=== PATIENT | female | born 1985 | race Caucasian/White ===

== ENCOUNTER 2017-02-10 00:14 | Emergency (ER) | payer MEDICAID ==
--- NOTE | 2017-02-10 00:53 | ED Physician Documentation ---
History of Present Illness - Stated complaint Stated Complaint: HEADACHE,VOMITING,SORE THROAT - Chief complaint Chief Complaint: Abd Pain - History obtained from History obtained from: Patient - History of Present Illness Timing: Today Improved by: no ameliorating factors Worsened by: GRIDER is exacerbated by light, sound - Additonal information Additional information: c/o frontal GRIDER, nausea, vomiting. Patient has had three (+) tests (OTC , at home) last few days. LMP approximately 5 weeks ago. Review of Systems Constitutional: reports: Sweats. denies: Fever Throat: reports: Sore throat Cardiac: reports: Reviewed and negative Respiratory: reports: Reviewed and negative GI: reports: Nausea, Vomiting. denies: Abdominal Pain : reports: Now EGA. 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 : None HEENT: Other Psych: Depression, Anxiety Musculoskeletal: None Derm: None - Past Surgical History Past Surgical History: Yes General: Colonoscopy, EGD - Present Medications Home Medications: Ambulatory Orders Medication Instructions Recorded Confirmed Sertraline [Zoloft] 50 mg PO DAILY 02/06/13 03/19/15 Cephalexin [Keflex] 500 mg PO TID #20 capsule 03/19/15 Oxycodone HCl/Acetaminophen 1 each PO Q6H PRN #15 tablet 03/19/15 [Percocet 5-325 mg Tablet] Cyclobenzaprine [Flexeril] 10 mg PO TID PRN #20 tablet 02/28/16 oxyCODONE/ACET 5/325 [Percocet 5 1 - 2 each PO Q6H PRN #14 tablet 02/28/16 mg/325 mg] Ondansetron Odt [Zofran] 4 mg TL Q6H PRN #10 tablet 02/10/17 - Allergies Allergies/Adverse Reactions: Allergies Allergy/AdvReac Type Severity Reaction Status Date / Time Penicillins Allergy Intermediate Hives Verified 02/10/17 00:24 - Social History Does the pt smoke?: Yes Smoking Status: Current every day smoker Does the pt drink ETOH?: Yes Does the pt have substance abuse?: No - Immunizations Immunizations are current?: Yes - POLST Patient has POLST: No PD ED PE NORMAL - Vitals Vital signs reviewed: Yes - General General: Alert and oriented X 3, Well developed/nourished, Other (diaphoretic, vomiting) - HEENT HEENT: Moist mucous membranes - Neck Neck: Supple, no meningeal sign - Cardiac Cardiac: RRR, No murmur - Respiratory Respiratory: No respiratory distress, Clear bilaterally - Abdomen Abdomen: Soft, Non tender - Back Back: No CVA TTP Results - Vitals Vitals: Vital Signs - 24 hr 02/10/17 02/10/17 00:21 02:14 Temperature 35.4 C L Heart Rate 85 72 Respiratory 20 16 Rate Blood Pressure 121/83 H 126/77 O2 Saturation 96 100 Oxygen O2 Source Room air - Labs Labs: Laboratory Tests 02/10/17 02/10/17 02/10/17 01:00 01:04 01:04 WBC 6.8 RBC 4.59 Hgb 11.6 L Hct 35.2 L MCV 76.8 L MCH 25.2 L MCHC 32.8 RDW 18.9 H Plt Count 175 MPV 9.0 Neut # 4.7 Lymph # 1.2 L [place] # 0.7 Eos # 0.1 Baso # 0.1 Absolute Nucleated RBC 0.00 Nucleated RBCs 0.0 Sodium 136 Potassium 3.5 Chloride 106 Carbon Dioxide 19 L Anion Gap 11.0 BUN 11 Creatinine 0.4 Estimated GFR (MDRD) 184 Glucose 124 H Calcium 8.9 Total Bilirubin < 0.2 L AST 27 ALT 23 Alkaline Phosphatase 51 Total Protein 7.1 Albumin 3.8 Globulin 3.3 Albumin/Globulin Ratio 1.2 Lipase 23 HCG, Quant Group A Strep Rapid Negative 02/10/17 01:04 WBC RBC Hgb Hct MCV MCH MCHC RDW Plt Count MPV Neut # Lymph # [place] # Eos # Baso # Absolute Nucleated RBC Nucleated RBCs Sodium Potassium Chloride Carbon Dioxide Anion Gap BUN Creatinine Estimated GFR (MDRD) Glucose Calcium Total Bilirubin AST ALT Alkaline Phosphatase Total Protein Albumin Globulin Albumin/Globulin Ratio Lipase HCG, Quant 06599.00 Group A Strep Rapid PD MEDICAL DECISION MAKING - ED course Complexity details: reviewed results, re-evaluated patient, considered differential, d/w patient ED course: On reevaluation, after IV fluids, IV zofran, and IV ofirmev, patient appears comfortable, NAD. She reports significant improvement in symptoms and feels comfortable with d/c home. I advised her of her HCG level and recommended she start arranging follow up with customer sales service manager. She has no pelvic/abd. symptoms (except nausea, vomiting; otherwise, no pain or cramping, no vaginal bleeding), and thus US not performed at this time. Departure - Departure Disposition: 01 Home, Self Care Clinical Impression: Vomiting during Condition: Good Instructions: ED Nausea Vomiting Follow-Up: Yesenia Pradhan DO [Provider Admit Priv/Credential] - Prescriptions: Ondansetron Odt [Zofran] 4 mg TL Q6H PRN #10 tablet PRN Reason: Nausea / Vomiting Forms: Activity restrictions Discharge Date/Time: 02/10/17 02:19
[2017-02-10] MEDS ORDERED: ONDANSETRON 4 MG/2 ML VIAL IVP STA (01:06)
[2017-02-10] MEDS ORDERED: SODIUM CHLORIDE 0.9% 1,000 ML IV STA (01:06)
[2017-02-10] MEDS ORDERED: ACETAMINOPHEN 1,000 MG/100 ML 100 ML IV STA (01:06)
[2017-02-10] MEDS ORDERED: ONDANSETRON 4 MG/2 ML VIAL ONE (01:08)
[2017-02-10] MEDS ORDERED: SODIUM CHLORIDE 0.9% 1,000 ML IV ONE (01:08)
[2017-02-10] MEDS ORDERED: ACETAMINOPHEN 1,000 MG/100 ML 100 ML IV ONE (01:08)
[2017-02-10] MEDS ORDERED: SODIUM CHLORIDE FLUSH 0.9% 10 ML SYRINGE IVP ONE (01:08)
[2017-02-10 01:14] LABS: BASOPHILS # (AUTO) 0.1 10^3/uL (0.0-0.1); BASOPHILS % (AUTO) 1.1 %; EOSINOPHILS # (AUTO) 0.1 10^3/uL (0.0-0.7); EOSINOPHILS % (AUTO) 1.4 %; HCT - HEMATOCRIT 35.2 % (37.0-47.0); HGB - HEMOGLOBIN 11.6 g/dL (12.0-16.0); LYMPHOCYTES # (AUTO) 1.2 10^3/uL (1.5-3.5); LYMPHOCYTES % (AUTO) 18.2 %; MEAN CORPUSCULAR HEMOGLOBIN 25.2 pg (27.0-31.0); MEAN CORPUSCULAR HGB CONC 32.8 g/dL (32.0-36.0); MEAN CORPUSCULAR VOLUME 76.8 fL (81.0-99.0); MONOCYTES # (AUTO) 0.7 10^3/uL (0.0-1.0); MONOCYTES % (AUTO) 10.4 %; NEUTROPHILS # (AUTO) 4.7 10^3/uL (1.5-6.6); NEUTROPHILS % (AUTO) 68.9 %; RED BLOOD COUNT 4.59 10^6/uL (4.20-5.40); RED CELL DISTRIBUTION WIDTH 18.9 % (12.0-15.0); UNCORRECTED WHITE BLOOD COUNT 6.8 x10^3/uL; WHITE BLOOD COUNT 6.8 x10^3/uL (4.8-10.8)
[2017-02-10 01:18] LABS: RAPID STREP SCREEN REAGENT QC YELLOW (YELLOW)
[2017-02-10 01:22] LABS: ALBUMIN/GLOBULIN RATIO 1.2 (1.0-2.2); BILIRUBIN,TOTAL < 0.2 mg/dL (0.2-1.0); BUN - BLOOD UREA NITROGEN 11 mg/dL (6-20); CALCIUM 8.9 mg/dL (8.5-10.3); CARBON DIOXIDE - CO2 19 mmol/L (21-32); CHLORIDE 106 mmol/L (101-111); CREATININE 0.4 mg/dL (0.4-1.0); GFR - MDRD 184 (>89); GLUCOSE 124 mg/dL (70-100); LIPASE 23 U/L (22-51); POTASSIUM 3.5 mmol/L (3.5-5.0); SODIUM 136 mmol/L (135-145); TOTAL PROTEIN 7.1 g/dL (6.7-8.2)
[2017-02-10] MEDS ORDERED: ONDANSETRON ODT 4 MG Prepack 2 TL STA (02:04)
[2017-02-10] MEDS ORDERED: ONDANSETRON ODT 4 MG Prepack 2 TL ONE (02:06)
[2017-02-10 02:15] VITALS: BP 126/77
== END 2017-02-10 02:19 | disposition home or self-care (01) ==
LOC: ED 00:14
DX: O21.9 Vomiting of pregnancy, unspecified (principal); O99.330 Smoking (tobacco) complicating pregnancy, unspecified trimester; Z3A.00 Weeks of gestation of pregnancy not specified
CPT/HCPCS: 36415; 80053; 83690; 84702; 85025; 87070; 87430; 96361; 96374; 96375; 99283; 99284; J0131

== ENCOUNTER 2017-03-02 08:00 | Outpatient (CLI) | payer MEDICAID, OTHER | END 2017-03-02 08:01 | disposition home or self-care (01) | LOC: LAB.R 08:00 | PROVIDERS: ATTEND Obstetrics & Gynecology | DX: Z11.3 Encounter for screening for infections with a predominantly sexual mode of transmission (principal) | CPT/HCPCS: 87491; 87591 ==

== ENCOUNTER 2017-03-05 05:44 | Emergency (ER) | payer OTHER ==
--- NOTE | 2017-03-05 06:11 | ED Physician Documentation ---
PD HPI NVD - Stated complaint Stated Complaint: VOMITING,DIARRHEA - Chief complaint Chief Complaint: Abd Pain - History obtained from History obtained from: Patient - History of Present Illness Timing - onset: Yesterday Timing - details: Abrupt onset, Waxing and waning Pain level now: 6 (headache) Improved by: Other (no ameliorating factors) Worsened by: Other (PO intake) Recently seen: Emergency Dept (T&R three weeks ago from this ED. this is her 24th [facility] ED visit since 2011) Review of Systems Constitutional: reports: Reviewed and negative Cardiac: reports: Reviewed and negative Respiratory: reports: Reviewed and negative GI: reports: Nausea, Vomiting, Diarrhea. denies: Abdominal Pain : reports: Now EGA (10 weeks, has had US in this (she describes IUP with perichorionic hemorrhage)). 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 : None HEENT: Other Psych: Depression, Anxiety Musculoskeletal: None Derm: None - Past Surgical History Past Surgical History: Yes General: Colonoscopy, EGD - Present Medications Home Medications: Ambulatory Orders Medication Instructions Recorded Confirmed Citalopram [CeleXA] 10 mg PO ONCE 03/05/17 03/05/17 Ondansetron Odt [Zofran] 4 mg TL Q6H PRN #10 tablet 03/05/17 Xpj375/FA/Omega3/Dha/Fish Oil 1 tab ORAL DAILY 03/05/17 03/05/17 [ Gummies] - Allergies Allergies/Adverse Reactions: Allergies Allergy/AdvReac Type Severity Reaction Status Date / Time Penicillins Allergy Intermediate Hives Verified 03/05/17 05:51 - Social History Does the pt smoke?: Yes Smoking Status: Former smoker Does the pt drink ETOH?: No Does the pt have substance abuse?: No - Immunizations Immunizations are current?: Yes - POLST Patient has POLST: No PD ED PE NORMAL - Vitals Vital signs reviewed: Yes - General General: Alert and oriented X 3, Well developed/nourished, Other (pale, diaphoretic, vomiting at times during H+P) - Cardiac Cardiac: RRR, No murmur - Respiratory Respiratory: No respiratory distress, Clear bilaterally Results - Vitals Vitals: Vital Signs - 24 hr 03/05/17 03/05/17 03/05/17 05:47 08:32 09:10 Temperature 35.7 C L 37.0 C 37.0 C Heart Rate 98 71 72 Respiratory 18 18 18 Rate Blood Pressure 139/80 H 122/66 132/74 H O2 Saturation 99 100 100 Oxygen O2 Source Room air - Labs Labs: Laboratory Tests 03/05/17 03/05/17 03/05/17 05:55 05:55 05:55 WBC 8.9 RBC 4.65 Hgb 11.8 L Hct 37.0 MCV 79.5 L MCH 25.4 L MCHC 31.9 L RDW 19.8 H Plt Count 187 MPV 8.7 Neut # 5.4 Lymph # 2.7 [place] # 0.5 Eos # 0.2 Baso # 0.1 Absolute Nucleated RBC 0.01 Nucleated RBCs 0.1 Sodium 135 Potassium 3.7 Chloride 105 Carbon Dioxide 21 Anion Gap 9.0 BUN 14 Creatinine 0.4 Estimated GFR (MDRD) 184 Glucose 114 H Calcium 8.7 Total Bilirubin 0.3 AST 19 ALT 18 Alkaline Phosphatase 49 Total Protein 6.9 Albumin 3.3 Globulin 3.6 Albumin/Globulin Ratio 0.9 L Lipase 26 HCG, Quant 962039.00 Urine Color Urine Clarity Urine pH Ur Specific [place] Urine Protein Urine Glucose (UA) Urine Ketones Urine Occult Blood Urine Nitrite Urine Bilirubin Urine Urobilinogen Ur Leukocyte Esterase Ur Microscopic Review Urine Culture Comments 03/05/17 08:00 WBC RBC Hgb Hct MCV MCH MCHC RDW Plt Count MPV Neut # Lymph # [place] # Eos # Baso # Absolute Nucleated RBC Nucleated RBCs Sodium Potassium Chloride Carbon Dioxide Anion Gap BUN Creatinine Estimated GFR (MDRD) Glucose Calcium Total Bilirubin AST ALT Alkaline Phosphatase Total Protein Albumin Globulin Albumin/Globulin Ratio Lipase HCG, Quant Urine Color YELLOW Urine Clarity CLEAR Urine pH 6.5 Ur Specific [place] 1.010 Urine Protein NEGATIVE Urine Glucose (UA) NEGATIVE Urine Ketones NEGATIVE Urine Occult Blood NEGATIVE Urine Nitrite NEGATIVE Urine Bilirubin NEGATIVE Urine Urobilinogen 0.2 (NORMAL) Ur Leukocyte Esterase NEGATIVE Ur Microscopic Review NOT INDICATED Urine Culture Comments NOT INDICATED PD MEDICAL DECISION MAKING - ED course Complexity details: reviewed results, re-evaluated patient, considered differential, d/w patient ED course: appeared, and reported, significant improvement after IV fluids, zofran, and morphine for headache. Departure - Departure Disposition: 01 Home, Self Care Clinical Impression: Vomiting Qualifiers: Vomiting type: unspecified Vomiting Intractability: non-intractable Nausea presence: with nausea Qualified Code(s): R11.2 - Nausea with vomiting, unspecified Qualifiers: Weeks of gestation: 10 weeks Qualified Code(s): Z3A.10 - 10 weeks gestation of Headache Qualifiers: Headache type: unspecified Headache chronicity pattern: acute headache Intractability: not intractable Qualified Code(s): R51 - Headache Condition: Good Instructions: ED Vomiting Diarrhea Nonspecific Ad Prescriptions: Ondansetron Odt [Zofran] 4 mg TL Q6H PRN #10 tablet PRN Reason: Nausea / Vomiting Discharge Date/Time: 03/05/17 09:10
[2017-03-05] MEDS ORDERED: METOCLOPRAMIDE 10 MG/2 ML VIAL ONE (06:19)
[2017-03-05] MEDS ORDERED: ACETAMINOPHEN 1,000 MG/100 ML 100 ML IV STA (06:21)
[2017-03-05] MEDS ORDERED: ONDANSETRON 4 MG/2 ML VIAL IVP STA ×2 (06:21→08:08)
[2017-03-05] MEDS ORDERED: ONDANSETRON 4 MG/2 ML VIAL ONE ×2 (06:21→08:10)
[2017-03-05] MEDS ORDERED: ACETAMINOPHEN 1,000 MG/100 ML 100 ML IV ONE (06:22)
[2017-03-05] MEDS ORDERED: SODIUM CHLORIDE 0.9% 1,000 ML IV STA ×2 (06:22→08:08)
[2017-03-05 06:31] LABS: BASOPHILS # (AUTO) 0.1 10^3/uL (0.0-0.1); BASOPHILS % (AUTO) 0.6 %; EOSINOPHILS # (AUTO) 0.2 10^3/uL (0.0-0.7); EOSINOPHILS % (AUTO) 2.5 %; HGB - HEMOGLOBIN 11.8 g/dL (12.0-16.0); LYMPHOCYTES # (AUTO) 2.7 10^3/uL (1.5-3.5); LYMPHOCYTES % (AUTO) 30.4 %; MEAN CORPUSCULAR HEMOGLOBIN 25.4 pg (27.0-31.0); MEAN CORPUSCULAR HGB CONC 31.9 g/dL (32.0-36.0); MEAN CORPUSCULAR VOLUME 79.5 fL (81.0-99.0); MEAN PLATELET VOLUME 8.7 fL (7.9-10.8); MONOCYTES # (AUTO) 0.5 10^3/uL (0.0-1.0); MONOCYTES % (AUTO) 5.2 %; NEUTROPHILS # (AUTO) 5.4 10^3/uL (1.5-6.6); NEUTROPHILS % (AUTO) 61.3 %; NUCLEATED RED BLOOD CELLS AUTO 0.1 /100WBC; RED BLOOD COUNT 4.65 10^6/uL (4.20-5.40); RED CELL DISTRIBUTION WIDTH 19.8 % (12.0-15.0); UNCORRECTED WHITE BLOOD COUNT 8.9 x10^3/uL; WHITE BLOOD COUNT 8.9 x10^3/uL (4.8-10.8)
[2017-03-05 06:41] LABS: ALBUMIN/GLOBULIN RATIO 0.9 (1.0-2.2); BILIRUBIN,TOTAL 0.3 mg/dL (0.2-1.0); CALCIUM 8.7 mg/dL (8.5-10.3); CREATININE 0.4 mg/dL (0.4-1.0); POTASSIUM 3.7 mmol/L (3.5-5.0); TOTAL PROTEIN 6.9 g/dL (6.7-8.2)
[2017-03-05 08:05] LABS: BILIRUBIN,URINE NEGATIVE (NEGATIVE); PH,URINE 6.5 PH (5.0-7.5)
[2017-03-05] MEDS ORDERED: MORPHINE 2 MG/ML SYRINGE IVP STA ×2 (08:08→08:45)
[2017-03-05] MEDS ORDERED: MORPHINE 2 MG/ML SYRINGE ONE ×2 (08:10→08:53)
[2017-03-05 08:27] LABS: UA CHARGE (STRIP ONLY) YES; UR CULTURE IF IND NOT INDICATED
[2017-03-05 09:30] VITALS: BP 132/74
== END 2017-03-05 09:10 | disposition home or self-care (01) ==
LOC: ED 05:44
DX: R11.2 Nausea with vomiting, unspecified (principal); Z87.891 Personal history of nicotine dependence
CPT/HCPCS: 36415; 80053; 81003; 83690; 84702; 85025; 96361; 96374; 96375; 96376; 99283; J0131; 81001; 87086

== ENCOUNTER 2017-04-02 08:00 | Outpatient (CLI) | payer OTHER ==
[2017-04-02 18:59] LABS: BILIRUBIN,URINE NEGATIVE (NEGATIVE)
[2017-04-02 19:30] LABS: BASOPHILS % (AUTO) 0.3 %; EOSINOPHILS # (AUTO) 0.2 10^3/uL (0.0-0.7); EOSINOPHILS % (AUTO) 1.8 %; HCT - HEMATOCRIT 34.7 % (37.0-47.0); HGB - HEMOGLOBIN 11.4 g/dL (12.0-16.0); LYMPHOCYTES # (AUTO) 2.4 10^3/uL (1.5-3.5); LYMPHOCYTES % (AUTO) 21.7 %; MEAN CORPUSCULAR HEMOGLOBIN 26.3 pg (27.0-31.0); MEAN CORPUSCULAR HGB CONC 32.9 g/dL (32.0-36.0); MEAN CORPUSCULAR VOLUME 79.9 fL (81.0-99.0); MEAN PLATELET VOLUME 9.1 fL (7.9-10.8); MONOCYTES # (AUTO) 0.5 10^3/uL (0.0-1.0); MONOCYTES % (AUTO) 4.9 %; NEUTROPHILS # (AUTO) 7.8 10^3/uL (1.5-6.6); NEUTROPHILS % (AUTO) 71.3 %; RED BLOOD COUNT 4.35 10^6/uL (4.20-5.40)
[2017-04-06 17:36] LABS: TEST RESULT REPORT (())
== END 2017-04-02 08:01 | disposition home or self-care (01) ==
LOC: LAB.N 08:00
PROVIDERS: ATTEND Obstetrics & Gynecology
DX: Z36 Encounter for antenatal screening of mother (principal)
CPT/HCPCS: 36415; 81001; 81599; 85025; 86762; 86850; 86900; 86901; 87340; 87389

== ENCOUNTER 2017-05-14 07:29 | Outpatient (CLI) | payer OTHER ==
--- NOTE | 2017-05-18 15:10 | Ultrasound Report ---
OB ULTRASOUND: 05/14/2017 CLINICAL INDICATION: anatomy. TECHNIQUE: Real-time scanning was performed with mechanical service representative static images obtained. LAST MENSTRUAL PERIOD 12/26/2016 Clinical Age 19 weeks 6 days US Age 20 weeks 1 day EFW Hadlock 334 grams EFW% Hadlock --- Heart Rate 138 EDC 10/02/2017 US EDC 09/30/2017 BPD Hadlock 20 weeks 1 day; Mean mm 46.8 HC Hadlock 19 weeks 6 days; Mean mm 173 AC Hadlock 20 weeks 4 days; Mean mm 153.4 FL Hadlock 19 weeks 5 days; Mean mm 31.3 Presentation breech/augustus Placental Location anterior maternal rt Cervical Length 4.5 cm Amniotic Fluid 4.7 cm FINDINGS: There is a single viable intrauterine gestation, in breech presentation. heart rate is 130 BPM. The placenta is anterior, without evidence of previa. Amniotic fluid volume is subjectively normal. By size, the fetus measures 20 weeks 1 day (19 weeks 6 days by LMP). The following anatomic structures were visualized and appear normal: The intracranial contents, including the ventricles and posterior fossa; the lips and orbits; the spine; the diaphragm; the abdominal contents, including the stomach, the bilateral kidneys, and urinary bladder, as well as a normal 3 vessel cord insertion; 4 limbs. Visualization of the cardiac structures, including four-chamber view and outflow tracts, is limited by positioning. Trace fluid is noted in the endocervical canal. No adnexal mass or free fluid is present. IMPRESSION: SINGLE VIABLE INTRAUTERINE GESTATION, WITH SIZE IN KEEPING WITH LMP DATING. SUBOPTIMAL VISUALIZATION OF CARDIAC STRUCTURES, DUE TO POSITIONING. OTHERWISE, UNREMARKABLE ANATOMIC SURVEY. [facility]
== END 2017-05-14 07:30 | disposition home or self-care (01) ==
LOC: DI 07:29
PROVIDERS: ATTEND Obstetrics & Gynecology
DX: Z36 Encounter for antenatal screening of mother (principal)
CPT/HCPCS: 76811

== ENCOUNTER 2017-06-11 08:59 | Outpatient (CLI) | payer OTHER ==
--- NOTE | 2017-06-14 15:18 | Ultrasound Report ---
LIMITED FOLLOWUP OB ULTRASOUND: 06/11/2017 COMPARISON: Anatomic screen 05/14/2017. INDICATION: Screening followup. TECHNIQUE: Limited evaluation. Followup exam. Cardiac structures not well visualized on routine anatomic survey of 05/14. LAST MENSTRUAL PERIOD 12/26/2016 Clinical Age 23 weeks 6 days US Age 24 weeks 2 days EFW Hadlock 669 EFW% Hadlock 51% Heart Rate 148 bpm EDC 10/02/2017 US EDC 09/29/2017 BPD Hadlock 23 weeks 5 days; Mean mm 57.8 HC Hadlock 24 weeks 1 day; Mean mm 222 AC Hadlock 24 weeks 2 days; Mean mm 196 FL Hadlock 24 weeks 1 day; Mean mm 43 Presentation variable Placental Location anterior Cervical Length 4.2 cm Amniotic Fluid 14.8 cm FINDINGS: The heart is better visualized on this examination. The left ventricular outflow tract and right ventricular outflow tract appear to have a normal anatomic configuration. Four-chamber heart is limited. However, no interatrial septum is visualized. IMPRESSION: THE INTERATRIAL CARDIAC SEPTUM APPEARS ABSENT ON THIS EXAMINATION. RECOMMEND A LOW THRESHOLD FOR MATERNAL MEDICINE CONSULTATION. OTHERWISE, THERE IS APPROPRIATE INTERVAL GROWTH. MTDD
== END 2017-06-11 09:00 | disposition home or self-care (01) ==
LOC: DI 08:59
PROVIDERS: ATTEND Obstetrics & Gynecology
DX: Z36.2 Encounter for other antenatal screening follow-up (principal)
CPT/HCPCS: 76816

== ENCOUNTER 2017-07-03 13:04 | Outpatient (CLI) | payer OTHER ==
--- NOTE | 2017-07-04 08:05 | Ultrasound Report ---
EXAM: RENAL ULTRASOUND EXAM DATE: 07/03/2017 01:09 PM. CLINICAL HISTORY: Right back pain. Question hydroureter. 27 weeks . COMPARISON: Noncontrast CT abdomen and pelvis 04/18/2013. TECHNIQUE: Real-time scanning was performed with static images obtained. FINDINGS: Right Kidney: 12.4 x 5.6 x 6.2 cm. No hydronephrosis or shadowing stones. Grossly normal parenchymal echogenicity and cortical thickness. No focal lesion identified. No perinephric fluid. Ureter is not well-seen. Left Kidney: 11.4 x 5.1 x 6 cm. No hydronephrosis or shadowing stones. Grossly normal parenchymal ech ogenicity and cortical thickness. No focal lesion or perinephric fluid. Ureter is not well-seen. Bladder: Bilateral jets seen. Smooth contour. The prevoid bladder volume was 257 cc. No postvoid blad parker residual. IMPRESSION: 1. Unremarkable renal sonogram. No hydronephrosis or focal lesion identified. 2. Neither ureter is well seen by sonogram (which is typical). Presence of bilateral ureteral jets ar gues against significant ureteral obstruction. 3. Unremarkable bladder with no postvoid residual. [facility] Referring Provider Line: [phone] SITE ID: [id number]
== END 2017-07-03 13:05 | disposition home or self-care (01) ==
LOC: DI 13:04
PROVIDERS: ATTEND Obstetrics & Gynecology
DX: M54.9 Dorsalgia, unspecified (principal)
CPT/HCPCS: 76770

== ENCOUNTER 2017-07-16 17:02 | Outpatient (CLI) | payer OTHER | END 2017-07-16 17:03 | disposition home or self-care (01) | LOC: LAB.N 17:02 | PROVIDERS: ATTEND Obstetrics & Gynecology | DX: Z36.9 Encounter for antenatal screening, unspecified (principal) | CPT/HCPCS: 36415; 82950; 85018; 86850 ==

== ENCOUNTER 2017-07-23 08:01 | Outpatient (CLI) | payer OTHER ==
[2017-07-23 08:54] LABS: GTT GLUCOSE,FASTING 102 mg/dL (70-100)
== END 2017-07-23 08:02 | disposition home or self-care (01) ==
LOC: LAB 08:01
PROVIDERS: ATTEND Obstetrics & Gynecology
DX: O99.810 Abnormal glucose complicating pregnancy (principal)
CPT/HCPCS: 36415; 82951

== ENCOUNTER 2017-08-06 03:59 | Emergency (ER) | payer OTHER ==
--- NOTE | 2017-08-06 04:32 | ED Physician Documentation ---
PD HPI HEENT - Stated complaint Stated Complaint: DENTAL PAIN/VOMITING - Chief complaint Chief Complaint: Heent - History obtained from History obtained from: Patient - History of Present Illness Timing - onset: How many days ago (2) Timing - duration: Days Timing - details: Gradual onset Pain level now: 8 Location: Tooth Improves: Nothing Worsens: Swalllowing, Temperatures Associated symptoms: Headache. No: Fever Recently seen: Not recently seen - Additional information Additional information: 32 weeks , c/o 2 days if left jaw pain that subsequently became focused on left mandibular second molar. tylenol without relief. also has nausea, vomiting and has difficulty keeping even sips of water down. had some keflex left over from old rx and thus took one keflex this evening. Review of Systems Constitutional: denies: Fever Throat: reports: Dental pain / toothache. denies: Sore throat Cardiac: reports: Reviewed and negative Respiratory: reports: Reviewed and negative GI: reports: Nausea, Vomiting. denies: Abdominal Pain : reports: Now EGA (32). 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 : None HEENT: Other Psych: Depression, Anxiety Musculoskeletal: None Derm: None - Past Surgical History Past Surgical History: Yes General: Colonoscopy, EGD - Present Medications Home Medications: Ambulatory Orders Medication Instructions Recorded Confirmed Citalopram [CeleXA] 10 mg PO ONCE 03/05/17 03/05/17 Ondansetron Odt [Zofran] 4 mg TL Q6H PRN #10 tablet 03/05/17 [id number]/FA/Omega3/Dha/Fish Oil 1 tab ORAL DAILY 03/05/17 03/05/17 [ Gummies] Cephalexin [Keflex] 500 mg PO Q6HR #19 capsule 08/06/17 Ondansetron Odt [Zofran] 4 mg TL Q6H PRN #10 tablet 08/06/17 - Allergies Allergies/Adverse Reactions: Allergies Allergy/AdvReac Type Severity Reaction Status Date / Time Penicillins Allergy Intermediate Hives Verified 03/05/17 05:51 - Social History Does the pt smoke?: Yes Smoking Status: Current every day smoker Does the pt drink ETOH?: No Does the pt have substance abuse?: No - Immunizations Immunizations are current?: Yes - POLST Patient has POLST: No PD ED PE NORMAL - Vitals Vital signs reviewed: Yes - General General: Alert and oriented X 3, No acute distress, Well developed/nourished - HEENT HEENT: PERRL, EOMI, Other (pasty mucous membranes) - Neck Neck: Supple, no meningeal sign - Cardiac Cardiac: RRR, No murmur - Respiratory Respiratory: No respiratory distress, Clear bilaterally - Abdomen Abdomen: Soft, Non tender PD ED PE EXPANDED - HEENT HEENT: Dental decay (generalized moderate amount of dental attrition) HEENT Visual: 1 - tenderness (ttp 18 with minimal gingival swelling and erythema) Results - Vitals Vitals: Vital Signs - 24 hr 08/06/17 08/06/17 08/06/17 04:04 05:45 06:30 Temperature 36.7 C Heart Rate 108 H 84 78 Respiratory 18 16 15 Rate Blood Pressure 153/89 H 140/82 H 147/89 H O2 Saturation 100 100 100 Oxygen O2 Source Room air - Labs Labs: Laboratory Tests 08/06/17 08/06/17 05:05 05:05 WBC 9.4 RBC 4.17 L Hgb 10.5 L Hct 32.8 L MCV 78.7 L MCH 25.3 L MCHC 32.1 RDW 18.7 H Plt Count 165 MPV 9.1 Neut # 7.5 H Lymph # 1.4 L [place] # 0.4 Eos # 0.1 Baso # 0.1 Absolute Nucleated RBC 0.00 Nucleated RBC % 0.0 Sodium 133 L Potassium 3.5 Chloride 104 Carbon Dioxide 21 Anion Gap 8.0 BUN 10 Creatinine 0.6 Estimated GFR (MDRD) 115 Glucose 96 Calcium 9.3 PD MEDICAL DECISION MAKING - ED course Complexity details: reviewed old records, reviewed results, re-evaluated patient , considered differential, d/w patient ED course: after IV fluids, IV morphine x 2 doses (2mg each dose), and zofran IV, patient reported significant improvement, was ready to go home. given keflex and new rx for same, and prepack of vicodin without rx for same.instructed to follow up with dentistry. Departure - Departure Disposition: 01 Home, Self Care Clinical Impression: Pain, dental Vomiting Qualifiers: Vomiting type: unspecified Vomiting Intractability: non-intractable Nausea presence: with nausea Qualified Code(s): R11.2 - Nausea with vomiting, unspecified Condition: Good Instructions: ED Tooth Pain, ED Nausea Vomiting Prescriptions: Cephalexin [Keflex] 500 mg PO Q6HR #19 capsule Ondansetron Odt [Zofran] 4 mg TL Q6H PRN #10 tablet PRN Reason: Nausea / Vomiting Discharge Date/Time: 08/06/17 06:43
[2017-08-06] MEDS ORDERED: SODIUM CHLORIDE 0.9% 1,000 ML IV STA (04:55)
[2017-08-06] MEDS ORDERED: ONDANSETRON 4 MG/2 ML VIAL IVP STA (04:55)
[2017-08-06] MEDS ORDERED: MORPHINE 2 MG/ML SYRINGE IVP STA ×2 (04:59→06:00)
[2017-08-06 05:20] LABS: BASOPHILS # (AUTO) 0.1 10^3/uL (0.0-0.1); BASOPHILS % (AUTO) 0.5 %; EOSINOPHILS # (AUTO) 0.1 10^3/uL (0.0-0.7); EOSINOPHILS % (AUTO) 0.7 %; HCT - HEMATOCRIT 32.8 % (37.0-47.0); HGB - HEMOGLOBIN 10.5 g/dL (12.0-16.0); LYMPHOCYTES # (AUTO) 1.4 10^3/uL (1.5-3.5); LYMPHOCYTES % (AUTO) 14.5 %; MEAN CORPUSCULAR HEMOGLOBIN 25.3 pg (27.0-31.0); MEAN CORPUSCULAR HGB CONC 32.1 g/dL (32.0-36.0); MEAN CORPUSCULAR VOLUME 78.7 fL (81.0-99.0); MEAN PLATELET VOLUME 9.1 fL (7.9-10.8); MONOCYTES # (AUTO) 0.4 10^3/uL (0.0-1.0); MONOCYTES % (AUTO) 4.5 %; NEUTROPHILS # (AUTO) 7.5 10^3/uL (1.5-6.6); NEUTROPHILS % (AUTO) 79.8 %; RED BLOOD COUNT 4.17 10^6/uL (4.20-5.40); RED CELL DISTRIBUTION WIDTH 18.7 % (12.0-15.0); UNCORRECTED WHITE BLOOD COUNT 9.4 x10^3/uL; WHITE BLOOD COUNT 9.4 x10^3/uL (4.8-10.8)
[2017-08-06 05:26] LABS: CALCIUM 9.3 mg/dL (8.5-10.3); CREATININE 0.6 mg/dL (0.4-1.0); POTASSIUM 3.5 mmol/L (3.5-5.0)
[2017-08-06] MEDS ORDERED: cephALEXin 250 MG CAPSULE PO STA (06:20)
[2017-08-06] MEDS ORDERED: HYDROcod/ACET 5/325 Prepack 6 PO STA (06:25)
[2017-08-06 06:31] VITALS: BP 147/89
== END 2017-08-06 06:43 | disposition home or self-care (01) ==
LOC: ED 03:59
DX: K08.89 Other specified disorders of teeth and supporting structures (principal); R11.2 Nausea with vomiting, unspecified; F17.200 Nicotine dependence, unspecified, uncomplicated
CPT/HCPCS: 36415; 80048; 85025; 96361; 96374; 96375; 96376; 99284; A9270; J2270

== ENCOUNTER 2017-08-07 11:34 | Emergency (ER) | payer OTHER ==
[2017-08-07 11:43] VITALS: BP 121/72
--- NOTE | 2017-08-07 12:20 | ED Physician Documentation ---
PD HPI HEENT - Stated complaint Stated Complaint: TOOTH ABSCESS - Chief complaint Chief Complaint: Heent - History obtained from History obtained from: Patient - History of Present Illness Timing - onset: How many days ago (4-5) Timing - duration: Days (4-5) Timing - details: Gradual onset, Still present (worsening the past 2 days - seen in ED for dental pain/infection and Rx Keflex. She says is worsening and feeling more swelling of face/submandibular area.) Location: Tooth, Mouth Improves: No: Medication Worsens: Swalllowing, Temperatures Associated symptoms: Swollen nodes. No: Fever, Congestion, Headache, Cough Recently seen: Emergency Dept (2 days ago and Rx Keflex for dental infection. No improvement and feels worse.) Review of Systems Constitutional: denies: Fever, Chills Nose: denies: Rhinorrhea / runny nose, Congestion Throat: reports: Dental pain / toothache. denies: Sore throat Cardiac: denies: Palpitations GI: reports: Nausea. 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 : None HEENT: Other Psych: Depression, Anxiety Musculoskeletal: None Derm: None - Past Surgical History Past Surgical History: Yes General: Colonoscopy, EGD - Present Medications Home Medications: Ambulatory Orders Medication Instructions Recorded Confirmed Citalopram [CeleXA] 10 mg PO ONCE 03/05/17 03/05/17 Ondansetron Odt [Zofran] 4 mg TL Q6H PRN #10 tablet 03/05/17 Zyp792/FA/Omega3/Dha/Fish Oil 1 tab ORAL DAILY 03/05/17 03/05/17 [ Gummies] Cephalexin [Keflex] 500 mg PO Q6HR #19 capsule 08/06/17 Ondansetron Odt [Zofran] 4 mg TL Q6H PRN #10 tablet 08/06/17 Clindamycin HCl [Cleocin HCl] 300 mg PO QID #24 capsule 08/07/17 HYDROcod/ACETAM 5/325 [[place] 5/325] 1 tab PO Q6H PRN #12 tablet 08/07/17 - Allergies Allergies/Adverse Reactions: Allergies Allergy/AdvReac Type Severity Reaction Status Date / Time Penicillins Allergy Intermediate Hives Verified 03/05/17 05:51 - Social History Does the pt smoke?: Yes Smoking Status: Current every day smoker Does the pt drink ETOH?: No Does the pt have substance abuse?: No - Immunizations Immunizations are current?: Yes - POLST Patient has POLST: No PD ED PE NORMAL - Vitals Vital signs reviewed: Yes - General General: Alert and oriented X 3, Well developed/nourished, Other (appears in pain) - HEENT HEENT: Ears normal, Pharynx benign, Other. No: Dentition benign (significant dental decay. Left teeth tender to palpation and percussion. Gum swelling without focal fluctuance. ) - Neck Neck: Supple, no meningeal sign, Other (left submandibular node felt/ no abscess. ) - Cardiac Cardiac: RRR, No murmur - Abdomen Abdomen: Soft, Non tender, Other (bedside U/S showed good FHR. ) Results - Vitals Vitals: Vital Signs - 24 hr 08/07/17 11:40 Temperature 36.7 C Heart Rate 90 Respiratory 18 Rate Blood Pressure 121/72 O2 Saturation 99 Oxygen O2 Source Room air PD MEDICAL DECISION MAKING - ED course Complexity details: considered differential (not improving on current abx for past 3 days. Can change abx (clinda class B in ). continue pain meds PRN. ), d/w patient Departure - Departure Disposition: 01 Home, Self Care Clinical Impression: Abscess, dental Condition: Stable Record reviewed to determine appropriate education?: Yes Instructions: ED Abscess Dental Prescriptions: Clindamycin HCl [Cleocin HCl] 300 mg PO QID #24 capsule HYDROcod/ACETAM 5/325 [[place] 5/325] 1 tab PO Q6H PRN #12 tablet PRN Reason: Pain Comments: Change from the Cephalexin to Clindamycin. This is listed as Caegory B so is okay in . Add Tylenol or hydrocodone as needed for pains. No NSAIDs at this point in . Drink lots of fluids. Follow up Dental clinic next week. Discharge Date/Time: 08/07/17 12:52
[2017-08-07] MEDS ORDERED: HYDROcod/ACETAM 5/325 MG TABLET PO STA (12:38)
[2017-08-07] MEDS ORDERED: CLINDAMYCIN 150 MG CAPSULE PO STA (12:38)
== END 2017-08-07 12:52 | disposition home or self-care (01) ==
LOC: ED 11:34
DX: K04.7 Periapical abscess without sinus (principal); F17.200 Nicotine dependence, unspecified, uncomplicated
CPT/HCPCS: 99283; A9270

== ENCOUNTER 2017-09-03 09:17 | Outpatient (CLI) | payer OTHER ==
--- NOTE | 2017-09-06 10:11 | Ultrasound Report ---
OB FOLLOWUP: 09/03/2017 CLINICAL INDICATION: Check size, diabetes. TECHNIQUE: Real-time scanning was performed with sales representative facility services static images obtained. LAST MENSTRUAL PERIOD: 12/24/2016 Clinical Age: 36 weeks 1 day US Age: 37 weeks 5 days EFW Hadlock: 3308 grams EFW% Hadlock: 89% Heart Rate: 157 bpm EDC: 09/30/2017 US EDC: 09/19/2017 BPD Hadlock: 37 weeks 3 days; Mean mm 92 HC Hadlock: 38 weeks 5 days; Mean mm 338 AC Hadlock: 38 weeks 3 days; Mean mm 345 FL Hadlock: 36 weeks 1 day; Mean mm 71 Presentation: cephalic Placental Location: anterior Cervical Length: -- Amniotic Fluid: 17.6 FINDINGS: There is a single viable intrauterine gestation, in cephalic presentation. heart rate is 157 BPM. The placenta is anterior, without evidence of previa. Amniotic fluid volume is normal, with an IDALIA of 17.6. By size, the fetus measures 37 weeks 5 days (35 weeks 6 days by initial sonogram). Estimated weight by Hadlock method is 3308 grams. No free fluid or adnexal lesion is appreciated. IMPRESSION: SINGLE VIABLE INTRAUTERINE GESTATION, WITH EXPECTED GROWTH FROM PREVIOUS SONOGRAM. NORMAL IDALIA. TD: 09/03/2017 15:35 MTDD
== END 2017-09-03 09:18 | disposition home or self-care (01) ==
LOC: DI 09:17
PROVIDERS: ATTEND Obstetrics & Gynecology
DX: Z36.9 Encounter for antenatal screening, unspecified (principal)
CPT/HCPCS: 76816

== ENCOUNTER 2017-09-07 10:00 | Outpatient (CLI) | payer OTHER | END 2017-09-07 10:01 | disposition home or self-care (01) | LOC: LAB.R 10:00 | PROVIDERS: ATTEND Obstetrics & Gynecology | DX: Z36.85 Encounter for antenatal screening for Streptococcus B (principal) | CPT/HCPCS: 87081 ==

== ENCOUNTER 2017-09-09 21:35 | Outpatient (CLI) | payer OTHER ==
[2017-09-09 22:06] VITALS: BP 129/72
[2017-09-10] MEDS ORDERED: MORPHINE 10 MG/ML VIAL IM SCH (00:27)
[2017-09-10] MEDS ORDERED: PROMETHAZINE 25 MG/1 ML VIAL IM SCH (00:28)
--- NOTE | 2017-09-10 00:48 | PROVIDER PROGRESS NOTE ---
Subjective - Prog Note Date Prog Note Date: 09/10/17 Prog Note Time: 00:43 - Subjective Pt reports feeling: No change Subjective: Mrs. Aviles is a 32-year-old multigravida at 37 weeks who reports possible leaking of fluid, contractions and pelvic pressure. She has no symptoms or complaints consistent with PIH. Her symptoms have been for the last 3 hours. She has no fevers chillsOr follow vaginal discharge. Serial physical exam findings no significant change. There was no evidence of ruptured membranes and firm negative. Cervix 1.5 cm, 25% effaced, -2 station, posterior. Tracing was category 1. Contractions were mild. Assessment: Prodrome of labor or false labor. Patient Lives in [place] and has reliable transportation. Plan: Therapeutic rest with morphine 10 mg and Phenergan 25 mg IM. Patient released to rest at home. Unless labor ensues she is to keep her regular appointment next week Objective - Vital Signs/Intake & Output Vital Signs: Vital Signs x48h Temp Pulse Resp BP Pulse Ox 09/09/17 22:05 97.9 F 90 20 129/72 100
== END 2017-09-10 01:35 | disposition home or self-care (01) ==
LOC: WFO 21:35 → FBP 21:37 → WFO 09-10 01:35
PROVIDERS: ATTEND Obstetrics & Gynecology
DX: O47.03 False labor before 37 completed weeks of gestation, third trimester (principal); Z3A.36 36 weeks gestation of pregnancy
CPT/HCPCS: 96372; 99214

== ENCOUNTER 2017-09-29 18:54 | Outpatient (CLI) | payer MEDICAID, OTHER ==
[2017-09-29 20:40] VITALS: BP 116/67
== END 2017-09-29 20:23 | disposition home or self-care (01) ==
LOC: WFO 18:54 → FBP 19:01 → WFO 20:23
PROVIDERS: ATTEND Obstetrics & Gynecology
DX: O99.213 Obesity complicating pregnancy, third trimester (principal); Z36.2 Encounter for other antenatal screening follow-up; Z3A.39 39 weeks gestation of pregnancy
CPT/HCPCS: 59025; 76816

== ENCOUNTER 2017-09-29 18:55 | Outpatient (CLI) | payer MEDICAID ==
--- NOTE | 2017-09-29 21:02 | Ultrasound Preliminary Report ---
Exam: US OB F/U OR REPEAT IMPRESSION: 1. Fields live intrauterine with gestational age 39 weeks 4 days based on current ultras ound. 2. Estimated weight is within expected limits for assigned dating. 3. IDALIA 19.2 cm, MVP 5.5 cm. [facility] SITE ID: [id number]
--- NOTE | 2017-09-29 21:02 | Ultrasound Report ---
EXAM: COMPLETE OBSTETRICAL ULTRASOUND EXAM DATE: 09/29/2017 08:27 PM. CLINICAL HISTORY: Assess estimated weight and IDALIA COMPARISON: 09/03/2017 ultrasound. TECHNIQUE: Real-time sonographic evaluation of the fetus performed by the porcelain enamel repairer. Multiple repre sentative static images were saved for review. Additional transvaginal imaging to more accurately tim luate cervical length/placental position/etc. DATING: Established EGA 39 weeks 4 days with SUNNI 10/02/2017 based on LMP. EGA 36 weeks 1 day with SUNNI 09/30/2017 based on initial ultrasound. EGA 39 weeks 4 days with SUNNI 10/02/2017 based on the current ultrasound. GENERAL EVALUATION Fields . Cardiac activity: 137 bpm. movement: Visualized. Presentation: Cephalic. Placenta: Anterior position. No evidence for previa. Amniotic fluid: 19.2 cm MVP 5.5 cm. BIOMETRY Bi-Parietal Diameter (BPD): 9.5 cm, 38 weeks 6 days Head Circumference (HC): 33.0 cm, 37 weeks 4 days Abdominal Circumference (AC): 32.9 cm, 36 weeks 6 days Femur Length (FL): 7.6 cm, 38 weeks 4 days Estimated Weight: 3258 gm, 35.9 percentile. IMPRESSION: 1. Fields live intrauterine with gestational age 39 weeks 4 days based on current ultras ound. 2. Estimated weight is within expected limits for assigned dating. 3. IDALIA 19.2 cm, MVP 5.5 cm. [facility] Referring Provider Line: [phone] SITE ID: [id number]
== END 2017-09-29 18:56 | disposition home or self-care (01) ==
LOC: DI 18:55
PROVIDERS: ATTEND Obstetrics & Gynecology
DX: Z36.2 Encounter for other antenatal screening follow-up (principal); Z3A.39 39 weeks gestation of pregnancy
CPT/HCPCS: 76816

== ENCOUNTER 2017-09-30 11:18 | Inpatient (IN) | payer MEDICAID ==
[2017-09-30] MEDS ORDERED: fentaNYL 100 MCG/2 ML VIAL IVP PRN (13:32)
[2017-09-30] MEDS ORDERED: ACETAMINOPHEN 325 MG TABLET PO PRN (13:32)
[2017-09-30] MEDS ORDERED: SODIUM CHLORIDE FLUSH 0.9% 10 ML SYRINGE IVP PRN (13:32)
[2017-09-30] MEDS ORDERED: ONDANSETRON 4 MG/2 ML VIAL IVP PRN (13:32)
[2017-09-30] MEDS ORDERED: SODIUM CHLORIDE FLUSH 0.9% 10 ML SYRINGE ONE (13:47)
[2017-09-30] MEDS ORDERED: miSOPROStol 100 MCG TABLET VG SCH (14:00)
[2017-09-30] MEDS: LACTATED RINGERS 1,000 ML IV SCH (15:22)
[2017-09-30 15:28] LABS: BASOPHILS % (AUTO) 0.3 %; EOSINOPHILS # (AUTO) 0.1 10^3/uL (0.0-0.7); EOSINOPHILS % (AUTO) 0.6 %; HGB - HEMOGLOBIN 10.2 g/dL (12.0-16.0); LYMPHOCYTES # (AUTO) 1.7 10^3/uL (1.5-3.5); LYMPHOCYTES % (AUTO) 18.6 %; MEAN CORPUSCULAR HEMOGLOBIN 23.9 pg (27.0-31.0); MEAN CORPUSCULAR HGB CONC 31.8 g/dL (32.0-36.0); MEAN CORPUSCULAR VOLUME 75.1 fL (81.0-99.0); MEAN PLATELET VOLUME 9.8 fL (7.9-10.8); MONOCYTES # (AUTO) 0.3 10^3/uL (0.0-1.0); MONOCYTES % (AUTO) 3.6 %; NEUTROPHILS # (AUTO) 6.8 10^3/uL (1.5-6.6); NEUTROPHILS % (AUTO) 76.9 %; PLT - PLATELET COUNT 163 10^3/uL (130-450); RED BLOOD COUNT 4.28 10^6/uL (4.20-5.40); RED CELL DISTRIBUTION WIDTH 19.6 % (12.0-15.0); WHITE BLOOD COUNT 8.9 x10^3/uL (4.8-10.8)
[2017-09-30] MEDS ORDERED: VANCOMYCIN INJ 1 GM in SODIUM CHLORIDE 0.9% 250 ML IV SCH (16:00)
[2017-09-30] MEDS: miSOPROStol 100 MCG TABLET BC SCH (20:03)
--- NOTE | 2017-09-30 20:04 | PROVIDER PROGRESS NOTE ---
Labor Progress Note - Uterine Monitoring Uterine Monitoring Mode: positive: External toco, Palpation Contraction Frequency (min/apart): Q. 411 minutes Contraction Intensity: positive: Moderate Uterine Resting Tone: positive: Soft - Monitoring Heart Rate Baseline: 135 Heart Rate Variability: positive: Moderate (6-25 bmp) Accelerations: positive: Present, 15x15 Decelerations: positive: None Strip Review: positive: Category I - Vaginal Exam Dilation (in cm): 2 Effacement (%): 30% Station: 0 Cervical Position: Midposition - Labor Progress Note Labor Progress Note/Additional Text: Patient remains in the latent phase well Cytotec ripening continues. The cervical consistency is softening and significant contractions have begun. heart tracing remains category 1. Patient has a history of rapid labors. I would prefer to wait closer to the second dose of vancomycin due at roughly 4 AM before rupturing the membranes. However it if tracing becomes intermittent or unreliable will consider placement of scalp electrode regardless of the cervical dilatation.
[2017-09-30] MEDS ORDERED: CITALOPRAM 10 MG TABLET PO SCH (21:00)
[2017-09-30] MEDS: FAMOTIDINE 20 MG TABLET PO SCH (22:21)
[2017-10-01] MEDS: LACTATED RINGERS 1,000 ML IV SCH ×4 (00:08→13:28)
[2017-10-01] MEDS: miSOPROStol 100 MCG TABLET BC SCH ×3 (00:09→04:28)
[2017-10-01] MEDS ORDERED: fent/BUPIV 2 MCG/0.125% 250 ML EP ONE (00:45)
[2017-10-01] MEDS ORDERED: ROPIVACAINE 0.2% PF 10 ML VIAL EPI ONE (01:00)
[2017-10-01] MEDS ORDERED: LACTATED RINGERS 500 ML IV ONE (01:21)
[2017-10-01] MEDS ORDERED: fent/BUPIV 2 MCG/0.125% 250 ML EP PRN (01:21)
[2017-10-01] MEDS ORDERED: NALOXONE 0.4 MG/ML VIAL IVP PRN (01:21)
[2017-10-01] MEDS ORDERED: ONDANSETRON 4 MG/2 ML VIAL IVP PRN (01:21)
[2017-10-01] MEDS ORDERED: NALBUPHINE 20 MG/ML AMP IVP PRN (01:21)
--- NOTE | 2017-10-01 02:39 | PROVIDER PROGRESS NOTE ---
Labor Progress Note - Uterine Monitoring Uterine Monitoring Mode: positive: IUPC Contraction Frequency (min/apart): q 4 mn Contraction Intensity: positive: Moderate Uterine Resting Tone: positive: Soft Other Uterine Monitoring: Peak Pressures 40 mm - Monitoring Monitor Mode: positive: External ultrasound, Spiral electrode Heart Rate Variability: positive: Moderate (6-25 bmp) Accelerations: positive: Present, 15x15 Decelerations: positive: None Strip Review: positive: Category I - Vaginal Exam Dilation (in cm): 2 Effacement (%): 50% Station: 0 Cervical Position: Midposition - Labor Progress Note Labor Progress Note/Additional Text: AROM Clear, Cytotec 25 mcg q4 may not be adequate, increased to 50 mcg Every 4.
[2017-10-01] MEDS: ePHEDrine 50 MG/ML VIAL IVP PRN ×3 (02:48→03:06)
--- NOTE | 2017-10-01 03:15 | HISTORY & PHYSICAL EXAMINATION ---
DATE OF SERVICE: Physician: Markell Aguilar MD DIAGNOSES 1. A 39-week 5-day gestation. 2. Unstable lie converted to vertex. 3. Group B streptococcus positive (penicillin resistant, vancomycin preferred agent). 4. Depression. 5. Morbid obesity. HISTORY OF PRESENT ILLNESS: The patient is a 32-year-old, , 3 , para 2-0-0-2 woman who has had regular care at [facility] since 12 weeks ' gestation. Her EDC is 10/01, based on a 13-week ultrasound. She was noted to have a fundal height greater than dates and ultrasound was obtained that showed normal interval growth. A followup ultrasound yesterday showed the weight to be consistent with dating and normal IDALIA. She was noted to be transverse today with backup, but easily moved. She was sent to Labor and Delivery for possible version and induction. When she came to Labor and Delivery, ultrasound exam confirmed that she had spontaneously converted to vertex. She has no signs or symptoms consistent with preeclampsia. The patient presents not in labor with a cervical exam of 2 cm, 30% and -1 station, slightly posterior and medium consistency. Esparza score is 3. Not in labor and membranes intact LABORATORIES: Blood type O positive, antibodies negative. GC, chlamydia negative. RPR negative. Rubella immune. Hepatitis B surface antigen negative. HIV negative. Urinalysis negative. One hour glucose challenge test 173; 3 hour glucose challenge test normal (102, 176, 111, 106). PAST HISTORY: In 2007, 40-week gestation, living female, 6 pounds 12 ounces. In 2005, 40 week female infant, 6 pounds 15 ounces. PAST MEDICAL HISTORY: Depression, controlled with Citralapam. Abnormal Pap in 2005 with condylomata. Colonoscopy in February 2014 polyps. No surgical history. No medical hospital admissions. FAMILY HISTORY: Asthma, diabetes. No gynecologic malignancy. No inheritable diseases. SOCIAL HISTORY: . Reformed smoker. No drug or alcohol use. 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 REVIEW OF SYSTEMS GENERAL: Well groomed, pleasant. CONSTITUTIONAL: Negative. HEENT: Negative. LUNGS: Negative. CARDIAC: Negative. GASTROINTESTINAL: Negative, other than heartburn. GENITOURINARY: Abnormal Pap with colposcopy. MUSCULOSKELETAL: Negative. SKIN: Negative. NEUROLOGIC: Negative. ALLERGIES: PENICILLINS. MEDICATIONS 1. vitamins. 2. Iron. 3. Prevacid. 4. Citralapram 50mg daily. PHYSICAL EXAMINATION GENERAL: Morbidly obese with truncal obesity. Alert, oriented, cooperative. in attendance. VITAL SIGNS: Temperature 98.2, pulse 95, blood pressure 131/83, respirations 17 , oxygen saturation 98. HEENT: Supple neck. No thyromegaly. Moist mucous membranes. LUNGS: Distant, but clear. CARDIAC: Regular. No murmur. BREASTS: Pendulous. No mass. No adenopathy in the axilla. ABDOMEN: Large pannus. Mild hepatomegaly, probably fatty liver. No tenderness or herniation. UTERUS: Forty-one week size, normal resting tone, moderate contractions. EXTERNAL MONITOR: Category 1. No regular contractions. Variability present 130s to 140s baseline. EXTERNAL GENITALIA: No lesions found. VAGINA: No blood or discharge. CERVIX: Almost 2 cm, 30%, thick, medium consistency. EXTREMITIES: Mild pedal edema. Moves all extremities well. NEUROLOGIC: Grossly intact. LABORATORIES: Hemoglobin 10.2, mildly anemic. Platelets 163. Old blood tube present. ASSESSMENT: The patient is a 39-week plus gestation with a somewhat unstable lie which has converted from transverse to head down. At this point, induction would be gomez before we revert to transverse or even breech. Cervical ripening will be necessary due to low Esparza score. PLAN: Cytotec ripening 25 mcg buccally every 4 hours. We will rupture membranes a bit later. I would like to get close to 2 doses of vancomycin in before hastening the pace of labor w AROM. wellbeing is assured. Informed consent for labor signed. Anticipate total hospitalization to be 96 hours or less Depending on the progress of the labor and possibility of complications/ section. TD: 10/01/2017 03:14 MIRA
[2017-10-01] MEDS ORDERED: VANCOMYCIN INJ 1 GM in SODIUM CHLORIDE 0.9% 250 ML IV SCH (04:00)
[2017-10-01] MEDS ORDERED: SODIUM CHLORIDE 0.9% 250 ML IV ONE (04:03)
--- NOTE | 2017-10-01 04:52 | PROVIDER PROGRESS NOTE ---
Labor Progress Note - Uterine Monitoring Uterine Monitoring Mode: positive: IUPC Contraction Frequency (min/apart): Q. 3 minutes : +60 mm peak pressures Contraction Intensity: positive: Moderate to strong Uterine Resting Tone: positive: Soft - Monitoring Monitor Mode: positive: Spiral electrode Heart Rate Baseline: 140 Heart Rate Variability: positive: Moderate (6-25 bmp) Accelerations: positive: Present, 15x15 Decelerations: positive: Variable, Intermittent (<50% x20 min) Strip Review: positive: Category I - Vaginal Exam Dilation (in cm): 3 Effacement (%): 60% Station: 0 Cervical Position: Midposition - Labor Progress Note Labor Progress Note/Additional Text: Contraction intensity and frequency adequate now. heart tones reassuring.Fluid still clear
--- NOTE | 2017-10-01 08:18 | PROVIDER PROGRESS NOTE ---
Labor Progress Note - Uterine Monitoring Uterine Monitoring Mode: positive: IUPC, Palpation Contraction Frequency (min/apart): Every 3 - 4 min : Peak pressures 85-60 mm Contraction Intensity: positive: Moderate to strong Uterine Resting Tone: positive: Soft - Monitoring Monitor Mode: positive: Spiral electrode Heart Rate Baseline: 140 Heart Rate Variability: positive: Minimal (0-5 bpm) (Chest prior to my exam the variability was moderate) Accelerations: positive: Present, 15x15 Decelerations: positive: Variable, Intermittent (<50% x20 min) Strip Review: positive: Category I - Vaginal Exam Dilation (in cm): 3 Effacement (%): 80% Station: -1 (Fetus is still movable and with patient movement lies shifts slightly. This causesThe head not to be applied as Deeply/firmly as before) Cervical Position: Midposition - Labor Progress Note Labor Progress Note/Additional Text: Cervical change is evident after Cytotec. Fluid remains clear and there are no concerns about reserve or well-being. However contraction frequency is lessening and therefore Pitocin augmentation will be used to keep forward momentum. Informed consent discussion was conducted with the patient and she agrees. Soon Dr. Yesenia Galeana will assume call responsibilities and cover labor and delivery. I will brief her on progress when she arrives.
[2017-10-01] MEDS: FAMOTIDINE 20 MG TABLET PO SCH ×2 (08:32→20:07)
--- NOTE | 2017-10-01 08:36 | PROVIDER PROGRESS NOTE ---
Labor Progress Note - Uterine Monitoring Uterine Monitoring Mode: positive: External toco Contraction Frequency (min/apart): Q2-4 Contraction Intensity: positive: Moderate Uterine Resting Tone: positive: Soft Other Uterine Monitoring: IUPC - Monitoring Monitor Mode: positive: External ultrasound Heart Rate Baseline: 140-150's Heart Rate Variability: positive: Moderate (6-25 bmp) Accelerations: positive: Present, 15x15 Decelerations: positive: Early Strip Review: positive: Category I - Vaginal Exam Dilation (in cm): 3 (per last exam by Dr. Aguilar) Effacement (%): 70 Station: -1 - Labor Progress Note Labor Progress Note/Additional Text: 32 yo with a 39+ wk IUP Unstable lie, currently VTX History of precipitous deliveries GBS positive, 2 doses of vancomycin given 5 doses of cytotec 25 mcg given; will start pitocin Expect
[2017-10-01] MEDS ORDERED: OXYTOCIN/SODIUM CHLORIDE 500 ML IV SCH (09:00)
[2017-10-01] MEDS: SODIUM CHLORIDE FLUSH 0.9% 10 ML SYRINGE IVP SCH (09:18)
--- NOTE | 2017-10-01 12:20 | PROVIDER PROGRESS NOTE ---
Labor Progress Note - Uterine Monitoring Uterine Monitoring Mode: positive: External toco Contraction Frequency (min/apart): Q2-3 (3 milliunits/min pitocin) Contraction Intensity: positive: Moderate to strong Other Uterine Monitoring: IUPC - Monitoring Monitor Mode: positive: Spiral electrode Heart Rate Variability: positive: Moderate (6-25 bmp) Accelerations: positive: Present, 15x15 Decelerations: positive: Early Strip Review: positive: Category II - Vaginal Exam Dilation (in cm): 8 Effacement (%): 80 Station: -1 - Labor Progress Note Labor Progress Note/Additional Text: 32 yo with a 39w6d IUP Active labor Induction for unstable lie, currently VTX Also GBS positive, on vancomycin History of precipitous delivery H/O HSV, 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 Controlled depression on citalopram 20 mg QD Continue pitocin and epidural Expect
[2017-10-01] MEDS ORDERED: CITALOPRAM 10 MG TABLET PO SCH (12:21)
[2017-10-01] MEDS ORDERED: MAGNESIUM HYDROXIDE 2,400 MG/30 ML UDC PO PRN (14:54)
[2017-10-01] MEDS ORDERED: HYDROCORTISONE/PRAMOXINE 10 GM PR PRN (14:54)
[2017-10-01] MEDS ORDERED: WITCH HAZEL/GLYCERIN 1 EACH MED..PAD TOP PRN (14:54)
[2017-10-01] MEDS ORDERED: OXYTOCIN/SODIUM CHLORIDE 250 ML IV ONE (14:54)
[2017-10-01] MEDS ORDERED: HYDROCORTISONE 1% CREAM 28 GM TUBE PR PRN (14:54)
--- NOTE | 2017-10-01 14:54 | DELIVERY NOTE ---
Delivery Note - Labor Labor: positive: Augmented by oxytocin, Induced by ARM - Delivery Method Infant Delivery Method: positive: Spontaneous vaginal delivery - Presentation Presentation: positive: Vertex - Nuchal Cord Nuchal Cord: positive: None - Amniotic Fluid Description Amniotic Fluid Description: positive: Clear - Episiotomy Type Episiotomy Type: positive: None - Laceration Laceration: positive: 1st degree, Labial - Suture Suture Type: positive: Vicryl Suture Size: positive: 4-0 - Delivery Outcome Delivery Outcome: positive: Livebirth - Meldrim : positive: Placed in direct skin contact with mother Meldrim sex: positive: Female : 8 : 9 - Cord Cord: positive: 3 vessels - Placenta Placenta: positive: Intact, Spontaneous - Estimated Blood Loss Estimated Blood Loss (in cc): 300 - Post Delivery Events Post Delivery Events: positive: No post delivery events - Delivery Comments (Free Text/Narrative) Delivery Comments (Free Text/Narrative): 32 yo at 39w5d was induced due to unstable lie, GBS positive and a history of precipitous delivery. The patient received 5 doses of cytotec 25 mcg buccally then AROM. She had an epidural for pain control and then pitocin for augmentation of labor. The patient was given at least 2 doses of vancomycin for GBS. She of a viable female fetus, "Tamilla." Apgars 8/9. EBL 300 mL. 1st degree right labia majora laceration repaired with 4-0 vicryl. The placenta delivered spontaneously, intact with 3VC. No complications. Will keep the epidural in and proceed to a tubal sterilization. Consent signed .
[2017-10-01] MEDS ORDERED: GLYCOPYRROLATE 1 MG/5 ML VIAL IVP ONE (16:00)
[2017-10-01] MEDS ORDERED: MEASLES,MUMPS & RUBELLA VACC 0.5 ML VIAL SUBQ ONE (16:00)
[2017-10-01] MEDS ORDERED: KETAMINE 500 MG/10 ML VIAL IVP ONE (16:00)
[2017-10-01] MEDS ORDERED: MIDAZOLAM 2 MG/2 ML VIAL IVP ONE (16:00)
[2017-10-01] MEDS ORDERED: LIDOCAINE-PF 2% 10 ML AMP SUBQ ONE (16:00)
[2017-10-01] MEDS ORDERED: PHENYLEPHRINE 50 MG/5 ML VIAL IV ONE (16:00)
[2017-10-01] MEDS ORDERED: SODIUM CHLORIDE 0.9% 10 ML VIAL IV ONE (16:00)
[2017-10-01] MEDS ORDERED: ACETAMINOPHEN 1,000 MG/100 ML 100 ML IV ONE (16:00)
[2017-10-01] MEDS ORDERED: fentaNYL 100 MCG/2 ML VIAL IVP ONE (16:00)
[2017-10-01] MEDS ORDERED: PROPOFOL 200 MG/20 ML VIAL IVP ONE (16:00)
[2017-10-01] MEDS ORDERED: LACTATED RINGERS 1,000 ML IV ONE ×2 (16:35→17:00)
[2017-10-01] MEDS ORDERED: HYDROcod/ACETAM 5/325 MG TABLET PO SCH (17:00)
[2017-10-01] MEDS: HYDROmorphone 1 MG/ML SYRINGE ONE ×4 (17:28→17:52)
[2017-10-01] MEDS ORDERED: SODIUM CHLORIDE FLUSH 0.9% 10 ML SYRINGE ONE (17:35)
--- NOTE | 2017-10-01 18:08 | OPERATIVE REPORT ---
Operative Report - General Admit Date: 09/30/17 - Other Other Information/Narrative: Date of Operation: 10/01/2017 Surgeon: Yesenia Pradhan DO FACNATALIA Project Asst: None Rotary Furnace Operator: Deandre Grayson CRNA Anesthesia: Epidural Pre-op Dx: 1. 32 yo S/p 10/01/2017 2. Desired permanent sterilization Post-op Dx: 1. 32 yo S/p 10/01/2017 2. Desired permanent sterilization Procedure: tubal sterilization via left salpingectomy and partial right salpingectomy Findings: Normal uterine fundus and fallopian tubes. Specimens: 1. Left fallopian tube 2. Left partial round ligament 3. Right partial fallopian tube Drains: None EBL: 150 mL Complications: None Dictation: [id number]
--- NOTE | 2017-10-01 19:28 | OPERATIVE REPORT ---
DATE OF OPERATION: 10/01/2017. PREOPERATIVE DIAGNOSES 1. A 32-year-old G3, P-3-0-0-3, status post spontaneous vaginal delivery on . 2. Desired permanent sterilization. POSTOPERATIVE DIAGNOSES 1. A 32-year-old G3, P-3-0-0-3, status post spontaneous vaginal delivery on . 2. Desired permanent sterilization. NAME OF PROCEDURE: tubal sterilization via left salpingectomy and partial right salpingectomy. SURGEON: Yesenia Pradhan DO, FACOG FURNITURE POLISHER: None. ANESTHESIA: Epidural. TOUR BUS DRIVER: Deandre Grayson CRNA FINDINGS: Normal uterine fundus and fallopian tubes. SPECIMENS 1. Left fallopian tube. 2. Left partial round ligament. 3. Partial right fallopian tube. DRAINS: None. ESTIMATED BLOOD LOSS: 150 mL COMPLICATIONS: None. BRIEF HISTORY: This is a patient of [facility] who presented on 09/30/2017 for an induction of labor secondary to unstable lie, history of precipitous deliveries, and GBS positive. The patient was induced with Cytotec and later augmented with Pitocin. Earlier this afternoon, she spontaneously delivered a viable female with Apgars of 8 and 9 at 1 and 5 minutes respectively, named Johanna. The patient also has verbalized her desire for permanent sterilization. On 08/10/2017, she discussed with Dr. Markell Dowd her decision for control. Consent forms for tubal sterilization were signed on 08/10/2017. I discussed with the patient if she still continued to want to proceed with permanent sterilization. I discussed with her the risks, benefits, alternatives , indications, and expectations of a tubal sterilization. Included in the discussion were the risks of hemorrhage, infection and damage to surrounding organs, which would most likely be an inadvertent laceration, cauterization, or ligation of adjacent intestines. Furthermore, at this procedure, the patient understands that there are different forms of contraception that are available to her and sterilization is not her only option. If she so desires, she may choose to have control pills, Ortho Evra, Nexplanon, the NuvaRing, the Mirena IUD, the ParaGard IUD and Depo- Provera. She also has an option of having her , Everardo, have a vasectomy. The patient understands that this procedure is meant to be permanent and irreversible. Should she want to have children after this procedure, it most likely would be via vitro fertilization, which costs upwards of $30,000 currently. In addition, there was an intrinsic tubal failure in which she may have an ectopic . Should she feel that she is after this procedure, the patient is to contact me immediately. After all of the patient' s questions were answered to her satisfaction, she verbalized her desire to proceed with surgery. Consent forms have been signed. OPERATION IN DETAIL: The patient was identified, consented and taken to the operating room where IV and epidural access were already in place. It is about 2 hours after her vaginal delivery. She was then given sequential compression devices which were placed on the lower extremities and turned on. The patient was then given a surgical dose through her epidural via Deandre Grayson CRNA. The patient had already received vancomycin intrapartum due to her being GBS positive, her PENICILLIN ALLERGY and the SENSITIVITY TO ANTIBIOTIC PROFILE. The patient was then prepped and draped in normal sterile fashion in the supine position. Timeout was performed, which correctly identified the patient, site of procedure, and procedure itself. A curvilinear infraumbilical incision was first made. This incision was then carried to the underlying layer of fascia with cautery. The fascia was then nicked in the midline and extended laterally. Using blunt dissection, the entrance to the abdomen was obtained. Stay sutures were placed on both edges of the fascia in order to help expedite wound closure. A finger was placed in the incision and the left cornu of the fallopian tube was swept towards the incision. The fallopian tube was grasped, but it was quite difficult to follow it out to its fimbriated end. I decided to perform a partial salpingectomy at this time. A laparoscopic LigaSure was used to excise a portion of the tube. However, after excision of what I thought was the fallopian tube revealed that it was actually the round ligament that I was incising. In retrospect, this made sense, given that there was more bleeding than normal in that the area that was excised. The uterus was bleeding from the serosa. Hemostasis was obtained using 0 Vicryl. Now that the fallopian tube had been properly identified and followed to its fimbriated end, I proceeded to excise the left fallopian tube in its entirety using the LigaSure. Some bleeding was also noted at the cornu of the left uterus. Vicryl 2-0 was used to obtain hemostasis. Attention was then turned towards the right aspect of the uterus. The patient had verbalized quite a bit of pain when the right portion of the uterus was touched. It appeared that the uterus had rotated in such a way that the right side of the uterus was rotated posteriorly. After Deandre had gotten adequate anesthesia for the patient, I then proceeded to the salpingectomy on the right aspect. The right fallopian tube was identified and followed to its fimbriated end. The patient, however, verbalized that she was in pain. She could not tolerate the pain at this time. Because of the patient's discomfort, I then proceeded to just perform a partial right salpingectomy. A portion of fallopian tube was excised from the distal portion, including the fimbria towards the uterine cornu. Hemostasis was noted. At this point in time, the surgery had been completed. I reinspected both right and left portions of the uterus. In order to ensure that there was hemostasis, given that the serosa of the uterus had been incised, I placed a Surgicel on the left aspect of the uterus. Again, hemostasis was noted. The fascia was then closed with a running stitch of 0 Vicryl and that same suture was used to reapproximate the Elisha fascia. The skin was then reapproximated with 4-0 Monocryl in subcuticular fashion. Dermabond was placed on top of the incision. The patient did tolerate the procedure but was in some amount of discomfort during the right partial salpingectomy. We continued to work on her pain after the salpingectomy and this continued through well into the recovery room. The patient will be recovering in Labor and Delivery and I will be aggressive on her pain control. She has received Toradol IV and is receiving IV Ofirmev in Recovery. I will continue the patient on Celebrex, as well as Tylenol, and she will have oxycodone available to her for any breakthrough pain. I would anticipate seeing the patient at [facility] for routine 2-week postop exam. All sponge, lap, and needle counts were correct, as per nurse report. TD: 10/01/2017 19:27 MIRA
[2017-10-01] MEDS: DOCUSATE SODIUM 100 MG CAPSULE PO SCH (21:27)
[2017-10-01] MEDS: CELECOXIB 100 MG CAPSULE PO SCH (21:27)
[2017-10-01] MEDS: ACETAMINOPHEN 325 MG TABLET PO SCH (21:30)
[2017-10-01] MEDS: oxyCODONE 5 MG TABLET PO SCH (23:14)
[2017-10-02] MEDS: HYDROmorphone 1 MG/ML SYRINGE IVP PRN ×3 (01:30→07:02)
--- NOTE | 2017-10-02 02:59 | DISCHARGE SUMMARY ---
DATE OF ADMISSION: 09/29/2017 DATE OF DISCHARGE: 10/03/2017 DIAGNOSES ON ADMISSION: 1. A 32-year-old, G3, P2-0-0-2, with a 39 and 5/7 week intrauterine . 2. Unstable lie. 3. Group B streptococcus positive. 4. History of precipitous delivery. 5. Desired permanent sterilization. DIAGNOSES ON DISCHARGE 1. A 32-year-old, G3, P-3-0-0-3, status post spontaneous vaginal delivery on 10/01/2017. 2. Status post tubal sterilization on 10/01/2017. 3. Normal recovery. BRIEF HISTORY: The patient is a patient of [facility] who presented on 09/30/2017 for induction of labor. The patient's baby was noted to be transverse, but after evaluating her the baby had spontaneously verted. Given the unstable lie, the patient was admitted to the hospital and given Cytotec 25 mcg buccally. After receiving 5 doses of Cytotec, she was artificially ruptured and given an epidural for pain control. The patient was then augmented with Pitocin. She spontaneously delivered a viable female , named Christi. Apgars were 8 and 9 at 1 and 5 minutes respectively. EBL was 300 mL. She sustained a superficial right labial laceration that was repaired with single interrupted stitches of 4-0 Vicryl. There were no complications. The patient verbalized her desire to have permanent sterilization. I had a long discussion with the patient regarding the risks, benefits, alternatives, indications, expectations of a tubal sterilization. After all questions were answered to her satisfaction, she verbalized her desire to proceed with surgery. The patient then underwent a tubal sterilization via a left salpingectomy and a partial right salpingectomy. Unfortunately, the patient's epidural did not satisfactorily take care of her pain so, in order to expedite the surgery, only a partial right salpingectomy was performed. The patient's course otherwise has been unremarkable. She is ambulating and tolerating a regular diet. The patient is urinating without difficulty. Her pain is controlled with oral medications. Her lochia was noted to be light. The patient will be discharged to home on 10/03/2017. Prescriptions for ibuprofen, Tylenol and Colace have been sent to her pharmacy of choice. She also will be given a prescription for oxycodone for any breakthrough pain that she may experience. The patient is to see us at [facility] for a routine 2-week postoperative incision check and in 8 weeks for a routine 8-week exam for an annual examination. The patient is to continue her routine citalopram 20 mg 1 tab p.o. daily. She may stop her acyclovir since she has now delivered. Kyreeena is tocall use if she has any worsening fevers, chills, abdominal pain or vaginal bleeding. TD: 10/02/2017 02:58 MTDD
[2017-10-02] MEDS: oxyCODONE 5 MG TABLET PO SCH ×4 (03:32→19:49)
[2017-10-02] MEDS: ACETAMINOPHEN 325 MG TABLET PO SCH ×2 (03:32→11:35)
[2017-10-02] MEDS: SODIUM CHLORIDE FLUSH 0.9% 10 ML SYRINGE IVP SCH ×4 (04:49→10:36)
[2017-10-02] MEDS: DOCUSATE SODIUM 100 MG CAPSULE PO SCH ×2 (08:19→19:49)
[2017-10-02] MEDS: FAMOTIDINE 20 MG TABLET PO SCH ×2 (08:20→19:49)
[2017-10-02] MEDS: CELECOXIB 100 MG CAPSULE PO SCH ×2 (08:23→19:48)
[2017-10-02] MEDS ORDERED: POLYETHYLENE GLYCOL 3350 17 GM PACKET PO PRN (11:16)
--- NOTE | 2017-10-02 11:20 | PROVIDER PROGRESS NOTE ---
Subjective - Prog Note Date Prog Note Date: 10/02/17 Prog Note Time: 11:18 - Subjective Pt reports feeling: Improved Subjective: Patient in bed, breast feeding. Feeling better RE pain control. On routine oxycodone and PRN dilaudid. Has been getting IV PRN dilaudid. Able to ambulate now without the walker. No nausea or vomiting. Tolerating a regular diet. Light lochia. Worried about when to go home. Has to go upstairs to use the restroom. Has a 10 and 12 yo girls at home and 5 year old step-son will be there tomorrow. Objective - Vital Signs/Intake & Output Reviewed Vital Signs: Yes Vital Signs: Vital Signs x48h Temp Pulse Resp BP Pulse Ox 10/02/17 09:45 18 97 10/02/17 07:52 98.8 F 68 16 106/54 L 94 10/02/17 03:36 97.7 F 64 16 102/57 L 97 Intake & Output: Intake & Output 09/29/17 09/30/17 10/01/17 10/02/17 23:59 23:59 23:59 23:59 Intake Total 250 2463.435 Output Total 225 1900 400 Balance 25 563.435 -400 - Objective General Appearance: positive: No acute distress Eyes Bilateral: positive: Normal inspection Abdomen: positive: Non-tender (Subumbilical incision clean, dry and intact. Dermabond in place. Firm fundus. Appropriate tenderness.) Skin: positive: Color nml Neurologic/Psychiatric: positive: Oriented x3 - Lab Results Fish Bones: 09/30/17 15:10 Assessment/Plan - Problem List (1) Vaginal delivery Impression: 32 yo S/p 10/01/2017, PPD #1 Normal recovery Routine care (2) Sterilization Impression: S/p tubal sterilization via left salpingectomy and partial right salpingectomy on 10/02/2017, POD #1 Normal recovery but not ideal pain control Trial of po dilaudid (vs po oxycodone) Keep IV in place if IV dilaudid necessary Recommend patient to stay overnight; patient OK with this plan. Anticipate discharge to home tomorrow.
[2017-10-02] MEDS: HYDROmorphone 2 MG TABLET PO SCH (11:37)
[2017-10-02] MEDS: ACETAMINOPHEN 500 MG TABLET PO SCH (18:53)
[2017-10-03] MEDS: oxyCODONE 5 MG TABLET PO SCH ×3 (00:17→09:01)
[2017-10-03] MEDS: HYDROmorphone 2 MG TABLET PO SCH (02:05)
[2017-10-03] MEDS: ACETAMINOPHEN 500 MG TABLET PO SCH (04:54)
[2017-10-03] MEDS: CELECOXIB 100 MG CAPSULE PO SCH (09:01)
[2017-10-03] MEDS: DOCUSATE SODIUM 100 MG CAPSULE PO SCH (09:01)
[2017-10-03] MEDS: FAMOTIDINE 20 MG TABLET PO SCH (09:01)
[2017-10-03 09:04] VITALS: BP 110/60
--- NOTE | 2017-10-03 10:21 | PROVIDER PROGRESS NOTE ---
Subjective - Prog Note Date Prog Note Date: 10/03/17 Prog Note Time: 10:19 - Subjective Pt reports feeling: Improved Subjective: Patient breast feeding baby. Feeling so much better today than yesterday. Glad to have stayed another night. Pain much more tolerable. Desires to go home. Baby has already been discharge to home by Dr. Carson. Objective - Vital Signs/Intake & Output Reviewed Vital Signs: Yes Vital Signs: Vital Signs x48h Temp Pulse Resp BP Pulse Ox 10/03/17 09:03 98.1 F 95 17 110/60 98 10/03/17 03:51 97.9 F 78 14 115/52 L 98 Intake & Output: Intake & Output 09/30/17 10/01/17 10/02/17 10/03/17 23:59 23:59 23:59 23:59 Intake Total 250 2463.435 Output Total 225 1900 400 Balance 25 563.435 -400 - Objective General Appearance: positive: No acute distress Eyes Bilateral: positive: Normal inspection Abdomen: positive: Non-tender (Subumbilical incision clean, dry and intact. Dermabond still on the incision.) Neurologic/Psychiatric: positive: Oriented x3 - Lab Results Fish Bones: 09/30/17 15:10 Assessment/Plan - Problem List (1) Vaginal delivery Impression: 32 yo S/p . Normal recovery. Discharge to home. Follow up at [facility] for routine visits. No lifting greater than the baby's weight. Activity as tolerated. Call for worsening fevers, chills, abdominal pain or vaginal bleeding. (2) Sterilization Impression: S/p tubal sterilization (left salpingectomy, partial right salpingectomy) Normal recovery Pain better controlled with oxycodone vs dilaudid Discharge to home with oxycodone. Rx motrin, acetaminophen and colace faxed to her pharmacy. Follow up in 2 weeks for a post-op incision check. Discharge Plan Disposition: 01 Home, Self Care Condition: Good Diet: Regular Activity Restrictions: Activity as Tolerated Shower Restrictions: No Driving Restrictions: Yes (No driving after taking oxycodone) Weight Bearing: Full Weight No Smoking: If you smoke, Please STOP! Call for help.
[2017-10-03] MEDS ORDERED: MEASLES,MUMPS & RUBELLA VACC 0.5 ML VIAL SUBQ ONE (11:00)
--- NOTE | 2017-10-03 11:48 | Labor Flowsheet ---
Labor Flowsheet Datetime Report Generated by CPN: 10/03/2017 11:48 Datetime: 10/03/2017 08:53 VITAL SIGNS NBP Sys/Alia/Mean (mmHg): 110 : 60 : 70 Pulse: 95 LaborFlag: Labor Datetime: 10/01/2017 23:05 SpO2 (%): 98 Datetime: 10/01/2017 13:50 Stage of : Labor STAGE 2 Pushing: Urge to Push Pushing Position: Pushing with Contractions Pushing Progress: Descent with Pushing Datetime: 10/01/2017 13:47 COMMUNICATION Communication: Provider at Bedside Datetime: 10/01/2017 13:45 UTERINE ACTIVITY Monitor Mode: Internal Frequency (min): 2-3 Duration (sec): 60-70 Pattern: Normal: <= 5 Contractions in 10 Minutes Resting Tone (Palpate): Relaxed Resting Tone IUP (mmHg): 15 Intensity IUP (mmHg): 65-70 [place] Units (mmHg): 190 ASSESSMENT A Monitor Mode: External US FHR Baseline Rate : 145 Variability: Moderate 6-25 bpm Accelerations: None Decelerations: Early; Variable Actions for Decelerations: Sterile Vaginal Exam Category: Category II Comments: VE anterior lip drRaz loera called. pt position on left tilt ASSESSMENT B Monitor Mode: External US Datetime: 10/01/2017 13:38 VAGINAL EXAM Dilatation (cm): 9.5 Vaginal Exam Comments: anterior lip Datetime: 10/01/2017 13:32 Hygiene: Michelle Care Datetime: 10/01/2017 13:22 Temperature (C): 36.9 Datetime: 10/01/2017 13:15 Oxygen Method: Room Air Datetime: 10/01/2017 12:27 Communication Comments: drRaz loera in to see patient and discuss tubal ligation post delivery. conse nt signed in office Datetime: 10/01/2017 12:16 Monitor Interventions for FHR: Ultrasound Adjusted Datetime: 10/01/2017 11:46 Effacement (%): 80 Station: -1 Exam by: dr. loera Vaginal Bleeding: Normal Show Cervix, Position: Posterior Datetime: 10/01/2017 11:28 Provider Notified (Name): dr. luz maria Datetime: 10/01/2017 11:20 MEDICATIONS Pitocin (milliunits): Increased to @ 3 Datetime: 10/01/2017 11:07 Respirations: 16 Datetime: 10/01/2017 11:03 PAIN Pain Scale: 2 Pain Presence: Intermittent Pain Location: Abdomen Pain Relief Measures: HELICOPTER [employer]IC Use Patient Position/Activity: Semi-Fowlers Comfort Measures: Breathing/Relaxation Patient Care Comments: frog legs Datetime: 10/01/2017 10:45 FHR Baseline Changes: No Baseline Change Datetime: 10/01/2017 10:15 Quality: Moderate Datetime: 10/01/2017 09:44 PATIENT CARE IV/Blood Work: IV Bolus Given ml @ 500 Datetime: 10/01/2017 09:18 Pitocin Checklist: At Least 1 Acceleration of 15 bpm x 15 Seconds in 30 Minutes or Adequate Variabi lity; No More than 1 Late Deceleration Occurred in Past 30 Minutes; No More than 2 Variable Decelerat ions > 60 Seconds in Duration and decreasing >60 bpm in 30 minutes; No More than 5 Uterine Contractio ns in 10 Minutes for any 20 Minute Interval; Uterus Palpates Soft between Contractions; IUPC Resting Tone less than 25 mmHg Datetime: 10/01/2017 08:16 I/O Interventions: [place] Cath Inserted Datetime: 10/01/2017 07:53 Cervix, Consistency: Soft Datetime: 10/01/2017 06:00 Anesthesia Level Check: T4- Nipple Line Datetime: 10/01/2017 05:00 Pain Coping: Sleeping Datetime: 10/01/2017 03:00 Pain Type: Pressure Pain Goal: 5 Datetime: 10/01/2017 02:39 MATERNAL ASSESSMENT Nausea/Vomiting: Hx of Nausea/Vomiting Datetime: 10/01/2017 02:25 Monitor Interventions for UA: IUPC Inserted Datetime: 10/01/2017 02:21 Membrane Status: Ruptured Membranes Rupture Method: Artificial Amniotic Fluid Color: Clear Amniotic Fluid Amount: Scant Amniotic Fluid Odor: Normal Datetime: 10/01/2017 02:00 Contraction Comments: Pt sleeping on right side, ctx not tracing well. Datetime: 10/01/2017 01:00 Epidural Procedure: Completed Datetime: 10/01/2017 00:57 Epidural Procedure Other: Pump Started Datetime: 10/01/2017 00:45 PROCEDURE TIME OUT Procedure Type: epidural Procedure Verify: Correct Patient Identity; Accurate Procedure Consent Form; Agreement on Procedure to be Done; Correct Patient Position ANESTHESIA Anesthesia Plans: Epidural Epidural Positioning: Sitting Anesthesia Comments: Anesthesia in room Datetime: 10/01/2017 00:10 Consults: Anesthesia Anesthesia Interventions Other: Other Datetime: 09/30/2017 20:00 Cervical Ripening Agents: Cytotec @ 25 mcg Datetime: 09/30/2017 17:22 Pain Assessment Comments: rating "cervical"pain 5/10 but tolerable Datetime: 09/30/2017 16:02 Antibiotics: Other Antibiotic @ 1 Medication Comments: 1gm vanco given. per order
== END 2017-10-03 11:00 | disposition home or self-care (01) | DRG 767 ==
LOC: WFO 11:18 → FBP 11:20 → WFO 13:29 → FBP 13:30
PROVIDERS: ADMIT Obstetrics & Gynecology; ATTEND Obstetrics & Gynecology
PROC: 3E0P7VZ Introduction of Hormone into Female Reproductive, Via Natural or Artificial Opening (ICD-10-PCS; 2017-09-30)
PROC: 0UT60ZZ Resection of Left Fallopian Tube, Open Approach (ICD-10-PCS; 2017-10-01)
PROC: 0UB50ZZ Excision of Right Fallopian Tube, Open Approach (ICD-10-PCS; 2017-10-01)
PROC: 0MBJ0ZZ Excision of Left Abdomen Bursa and Ligament, Open Approach (ICD-10-PCS; 2017-10-01)
PROC: 0HQ9XZZ Repair Perineum Skin, External Approach (ICD-10-PCS; 2017-10-01)
PROC: 10907ZC Drainage of Amniotic Fluid, Therapeutic from Products of Conception, Via Natural or Artificial Opening (ICD-10-PCS; 2017-10-01)
PROC: 10E0XZZ Delivery of Products of Conception, External Approach (ICD-10-PCS; principal; 2017-10-01 15:15)
DX: O99.824 Streptococcus B carrier state complicating childbirth (principal); Z68.41 Body mass index [BMI] 40.0-44.9, adult; N99.71 Accidental puncture and laceration of a genitourinary system organ or structure during a genitourinary system procedure; O90.89 Other complications of the puerperium, not elsewhere classified; O99.214 Obesity complicating childbirth; E66.01 Morbid (severe) obesity due to excess calories; O70.0 First degree perineal laceration during delivery; O99.344 Other mental disorders complicating childbirth; F32.9 Major depressive disorder, single episode, unspecified; Z3A.39 39 weeks gestation of pregnancy; Z37.0 Single live birth; Z30.2 Encounter for sterilization
CPT/HCPCS: 51701; 59025; 85025

== ENCOUNTER 2017-10-06 11:39 | Outpatient (CLI) | payer MEDICAID | END 2017-10-06 11:40 | disposition home or self-care (01) | LOC: LAB.R 11:39 | PROVIDERS: ATTEND Registered Nurse | DX: R82.99 Other abnormal findings in urine (principal) | CPT/HCPCS: 87077; 87086 ==

== ENCOUNTER 2018-02-28 12:31 | Emergency (ER) | payer MEDICAID ==
[2018-02-28 12:52] VITALS: BP 129/98
--- NOTE | 2018-02-28 15:21 | ED Physician Documentation ---
PD HPI HEENT - Stated complaint Stated Complaint: TOOTH PX - Chief complaint Chief Complaint: Heent - History obtained from History obtained from: Patient - History of Present Illness Timing - onset: How many days ago (3) Timing - duration: Days (3) Timing - details: Gradual onset, Still present Location: Tooth Improves: Medication Worsens: Everything Associated symptoms: Facial swelling Similar symptoms before: Diagnosis (dental abscess) Recently seen: Surgery - Additional information Additional information: 33-year-old female has had a left upper molar removed 3 days ago and she has severe pain in the socket. She feels there is likely infection. 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 : None HEENT: Other Psych: Depression, Anxiety Musculoskeletal: None Derm: None - Past Surgical History Past Surgical History: Yes General: Colonoscopy, EGD - Present Medications Home Medications: Ambulatory Orders Medication Instructions Recorded Confirmed Citalopram [CeleXA] 10 mg PO ONCE 03/05/17 03/05/17 Ondansetron Odt [Zofran] 4 mg TL Q6H PRN #10 tablet 03/05/17 Loy351/FA/Omega3/Dha/Fish Oil 1 tab ORAL DAILY 03/05/17 03/05/17 [ Gummies] Cephalexin [Keflex] 500 mg PO Q6HR #19 capsule 08/06/17 Ondansetron Odt [Zofran] 4 mg TL Q6H PRN #10 tablet 08/06/17 Clindamycin HCl [Cleocin HCl] 300 mg PO QID #24 capsule 08/07/17 HYDROcod/ACETAM 5/325 [[place] 5/325] 1 tab PO Q6H PRN #12 tablet 08/07/17 Clindamycin [Cleocin] 300 mg PO Q6H #28 capsule 02/28/18 HYDROcod/ACETAM 5/325 [[place] 5/325] 1 - 2 ea PO Q6H PRN #8 tablet 02/28/18 - Allergies Allergies/Adverse Reactions: Allergies Allergy/AdvReac Type Severity Reaction Status Date / Time Penicillins Allergy Intermediate Hives Verified 03/05/17 05:51 - Social History Does the pt smoke?: Yes Smoking Status: Current every day smoker Does the pt drink ETOH?: No Does the pt have substance abuse?: No - Immunizations Immunizations are current?: Yes - POLST Patient has POLST: No PD ED PE NORMAL - Vitals Vital signs reviewed: Yes (hypertensive ) - General General: Alert and oriented X 3, Well developed/nourished, Other (appears to be in pain with temperature regulator tone and flat affect. ) - HEENT HEENT: Atraumatic, PERRL, EOMI, Other (There is a tooth extraction site with exposed bone in the left upper molar socket. There is mild surrounding swelling) - Neck Neck: Supple, no meningeal sign, No bony TTP - Respiratory Respiratory: No respiratory distress - Derm Derm: Normal color, Warm and dry, No rash - Extremities Extremities: No deformity, No edema - Neuro Neuro: Alert and oriented X 3, No motor deficit, No sensory deficit, Normal speech Eye Opening: Spontaneous Motor: Obeys Commands Verbal: Oriented GCS Score: 15 - Psych Psych: Normal mood, Normal affect Results - Vitals Vitals: Vital Signs - 24 hr 02/28/18 12:50 Temperature 36.0 C L Heart Rate 69 Respiratory 18 Rate Blood Pressure 129/98 H O2 Saturation 99 Oxygen O2 Source Room air PD MEDICAL DECISION MAKING - ED course Complexity details: reviewed results, re-evaluated patient, considered differential, d/w patient ED course: 33-year-old female status post tooth extraction appears to have a dry socket. Dry socket paste is applied over the bone and she is placed onto some clindamycin will provide some additional pain medication. - Sepsis Event Vital Signs: Vital Signs - 24 hr 02/28/18 12:50 Temperature 36.0 C L Heart Rate 69 Respiratory 18 Rate Blood Pressure 129/98 H O2 Saturation 99 Oxygen O2 Source Room air Departure - Departure Disposition: 01 Home, Self Care Clinical Impression: Dry tooth socket Condition: Stable Instructions: ED Socket Dry Follow-Up: [facility] [Provider Group] Prescriptions: Clindamycin [Cleocin] 300 mg PO Q6H #28 capsule HYDROcod/ACETAM 5/325 [[place] 5/325] 1 - 2 ea PO Q6H PRN #8 tablet PRN Reason: Pain
== END 2018-02-28 15:26 | disposition home or self-care (01) ==
LOC: ED 12:31
DX: M27.3 Alveolitis of jaws (principal)
CPT/HCPCS: 99283

== ENCOUNTER 2018-07-30 21:39 | Emergency (ER) | payer MEDICAID ==
[2018-07-30] MEDS ORDERED: HYDROcod/ACET 5/325 Prepack 4 PO STA (22:06)
--- NOTE | 2018-07-30 22:06 | ED Physician Documentation ---
PD HPI BACK PAIN - Stated complaint Stated Complaint: FEMALE - Chief complaint Chief Complaint: UTI - History obtained from History obtained from: Patient - History of Present Illness Timing - onset: Other (About a week's worth of urinary frequency and burning dysuria but now with low back pain for the last couple of days but that might be from a lot of work she has been doing around her house to clean as she has an upcoming inspection. No fevers or nausea.) Review of Systems Constitutional: denies: Fever, Chills GI: denies: Abdominal Pain, Nausea, Vomiting : reports: Dysuria, Frequency. 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 - Present Medications Home Medications: Ambulatory Orders Medication Instructions Recorded Confirmed Citalopram [CeleXA] 10 mg PO ONCE 03/05/17 03/05/17 Cyclobenzaprine [Flexeril] 10 mg PO TID PRN #20 tablet 07/30/18 - Allergies Allergies/Adverse Reactions: Allergies Allergy/AdvReac Type Severity Reaction Status Date / Time Penicillins Allergy Intermediate Hives Verified 07/30/18 21:45 - Social History Does the pt smoke?: Yes Smoking Status: Current every day smoker Does the pt drink ETOH?: No Does the pt have substance abuse?: No Substance Use and Type: Marijuana - Immunizations Immunizations are current?: Yes - POLST Patient has POLST: No PD ED PE NORMAL - Vitals Vital signs reviewed: Yes - General General: Alert and oriented X 3, No acute distress - Abdomen Abdomen: Soft, Non tender - Back Back: Other (There is no flank or CVA tenderness but she does have muscular tenderness of the low back) - Neuro Neuro: Alert and oriented X 3, Normal speech Results - Vitals Vitals: Vital Signs - 24 hr 07/30/18 21:40 Temperature 36.2 C L Heart Rate 89 Respiratory 18 Rate Blood Pressure 145/102 H O2 Saturation 99 Oxygen O2 Source Room air - Labs Labs: Laboratory Tests 07/30/18 21:54 Urine Color YELLOW Urine Clarity CLEAR Urine pH 6.0 Ur Specific [place] >=1.030 H Urine Protein NEGATIVE Urine Glucose (UA) NEGATIVE Urine Ketones NEGATIVE Urine Occult Blood SMALL H Urine Nitrite NEGATIVE Urine Bilirubin NEGATIVE Urine Urobilinogen 0.2 (NORMAL) Ur Leukocyte Esterase NEGATIVE Urine RBC 0-5 Urine WBC 0-3 Ur Squamous Epith Cells MOD Squamous H Urine Bacteria None Seen Ur Microscopic Review INDICATED Urine Culture Comments NOT INDICATED PD MEDICAL DECISION MAKING - ED course ED course: She is concerned about a UTI but 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 Except for trace blood her urine is unremarkable and she is on her menses. Pain does not lateralize so it is not consistent with renal colic. Departure - Departure Disposition: Home, Self Care Clinical Impression: Lumbago Qualifiers: Chronicity: acute Back pain laterality: bilateral Sciatica presence: without sciatica Qualified Code(s): M54.5 - Low back pain Condition: Good Record reviewed to determine appropriate education?: Yes Instructions: ED Sprain Strain Lumbar Prescriptions: Cyclobenzaprine [Flexeril] 10 mg PO TID PRN #20 tablet PRN Reason: Spasms Comments: Call your doctor to arrange a follow-up appointment, make the next available appointment. In the interim, return anytime if worse or if new symptoms develop. Your blood pressure was elevated today on check into the emergency department. This does not mean that you have hypertension, it is a common phenomenon to come to the emergency department and have elevated blood pressure. I recommend that you see your primary care physician within the week to have it rechecked when you are feeling better.
[2018-07-30 22:08] LABS: BILIRUBIN,URINE NEGATIVE (NEGATIVE); CLARITY,URINE CLEAR (CLEAR); GLUCOSE, URINE (UA) NEGATIVE (NEGATIVE); KETONES,URINE (UA) NEGATIVE (NEGATIVE); LEUKOCYTE ESTERASE, URINE NEGATIVE (NEGATIVE); NITRITE,URINE NEGATIVE (NEGATIVE); OCCULT BLOOD,URINE SMALL (NEGATIVE); PROTEIN,URINE NEGATIVE (NEGATIVE); UROBILINOGEN,URINE 0.2 (NORMAL) E.U./dL (NORMAL)
[2018-07-30 22:18] LABS: BACTERIA,URINE None Seen /HPF (None Seen); RBC,URINE 0-5 /HPF (0-5); SQUAMOUS EPITHELIAL CELL,UR MOD Squamous (<= Few)
[2018-07-30 22:35] VITALS: BP 122/73
== END 2018-07-30 22:35 | disposition home or self-care (01) ==
LOC: ED 21:39
DX: M54.5 Low back pain (principal); R03.0 Elevated blood-pressure reading, without diagnosis of hypertension; F17.200 Nicotine dependence, unspecified, uncomplicated
CPT/HCPCS: 81001; 81003; 87086; 99283

== ENCOUNTER 2019-03-23 19:48 | Emergency (ER) | payer MEDICAID ==
[2019-03-23 19:56] VITALS: BP 136/94
[2019-03-23 20:04] LABS: BILIRUBIN,URINE NEGATIVE (NEGATIVE); GLUCOSE, URINE (UA) NEGATIVE (NEGATIVE); KETONES,URINE (UA) NEGATIVE (NEGATIVE); LEUKOCYTE ESTERASE, URINE SMALL (NEGATIVE); NITRITE,URINE NEGATIVE (NEGATIVE); OCCULT BLOOD,URINE TRACE-LYSE (NEGATIVE); PH,URINE 5.5 PH (5.0-7.5); PROTEIN,URINE NEGATIVE (NEGATIVE); UROBILINOGEN,URINE 0.2 (NORMAL) E.U./dL (NORMAL)
[2019-03-23 20:09] LABS: CLARITY,URINE SL. CLOUDY (CLEAR); HCG UR QUAL NEGATIVE
[2019-03-23 20:11] LABS: BACTERIA,URINE Many /HPF (None Seen); SQUAMOUS EPITHELIAL CELL,UR RARE Squamous (<= Few)
== END 2019-03-23 21:12 | disposition left against medical advice (07) ==
LOC: ED 19:48
DX: Z53.21 Procedure and treatment not carried out due to patient leaving prior to being seen by health care provider (principal)
CPT/HCPCS: 81001; 81003; 81025; 87077; 87086; 87181

== ENCOUNTER 2019-06-22 16:04 | Emergency (ER) | payer MEDICAID ==
[2019-06-22 16:18] VITALS: BP 147/88
[2019-06-22 17:29] LABS: BILIRUBIN,URINE NEGATIVE (NEGATIVE); GLUCOSE, URINE (UA) NEGATIVE (NEGATIVE); KETONES,URINE (UA) NEGATIVE (NEGATIVE); LEUKOCYTE ESTERASE, URINE NEGATIVE (NEGATIVE); NITRITE,URINE NEGATIVE (NEGATIVE); OCCULT BLOOD,URINE TRACE-LYSE (NEGATIVE); PROTEIN,URINE NEGATIVE (NEGATIVE); UROBILINOGEN,URINE 0.2 (NORMAL) E.U./dL (NORMAL)
[2019-06-22 17:31] LABS: CLARITY,URINE CLEAR (CLEAR); HCG UR QUAL NEGATIVE
[2019-06-22] MEDS ORDERED: HYDROcod/ACETAM 5/325 MG TABLET PO STA (17:48)
--- NOTE | 2019-06-22 17:53 | ED Physician Documentation ---
PD HPI ABD PAIN - Stated complaint Stated Complaint: LT BACK PX, DIZZINESS,NAUSEA - Chief complaint Chief Complaint: Abd Pain - History obtained from History obtained from: Patient - History of Present Illness Timing - onset: Yesterday (Since yesterday she is had right low back pain which is nonradiating associated with tactile fever and measured temperature up to 99.9. Some resolved nausea. No urinary complaints. She is on her menses.) Review of Systems Ten Systems: 10 systems reviewed and negative Constitutional: reports: Fever, Chills, Fatigue Respiratory: denies: Dyspnea, Cough GI: reports: Abdominal Pain, Nausea. 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: Tubal ligation - Present Medications Home Medications: Ambulatory Orders Medication Instructions Recorded Confirmed Citalopram [CeleXA] 10 mg PO ONCE 03/05/17 03/05/17 Cyclobenzaprine [Flexeril] 10 mg PO TID PRN #20 tablet 07/30/18 Hydrocodone/Acetaminophen 1 - 2 each PO Q6H PRN #10 tablet 06/22/19 [Hydrocodon-Acetaminophen 5-325] Ibuprofen [Motrin] 800 mg PO Q8H PRN #30 tablet 06/22/19 - Allergies Allergies/Adverse Reactions: Allergies Allergy/AdvReac Type Severity Reaction Status Date / Time Penicillins Allergy Intermediate Hives Verified 03/23/19 19:56 - Social History Does the pt smoke?: Yes Smoking Status: Current every day smoker Does the pt drink ETOH?: No Does the pt have substance abuse?: No - Immunizations Immunizations are current?: Yes - POLST Patient has POLST: No PD ED PE NORMAL - Vitals Vital signs reviewed: Yes - General General: Alert and oriented X 3, No acute distress - Cardiac Cardiac: RRR, No murmur - Respiratory Respiratory: No respiratory distress, Clear bilaterally - Abdomen Abdomen: Soft, Non tender - Back Back: Other (Tender to the right low back without rash there.) - Derm Derm: Normal color, Warm and dry - Neuro Neuro: Alert and oriented X 3, Normal speech Results - Vitals Vitals: Vital Signs - 24 hr 06/22/19 16:15 Temperature 36.8 C Heart Rate 79 Respiratory 18 Rate Blood Pressure 147/88 H O2 Saturation 100 Oxygen O2 Source Room air - Labs Labs: Laboratory Tests 06/22/19 06/22/19 06/22/19 17:23 17:58 17:58 WBC 7.9 RBC 5.07 Hgb 13.8 Hct 43.9 MCV 86.6 MCH 27.2 MCHC 31.4 L RDW 14.4 Plt Count 231 MPV 10.6 Neut # (Auto) 5.0 Lymph # (Auto) 2.4 [place] # (Auto) 0.4 Eos # (Auto) 0.1 Baso # (Auto) 0.0 Absolute Nucleated RBC 0.00 Nucleated RBC % 0.0 Sodium 139 Potassium 3.6 Chloride 103 Carbon Dioxide 24 Anion Gap 12.0 BUN 11 Creatinine 0.6 Estimated GFR (MDRD) 114 Glucose 95 Calcium 9.4 Total Bilirubin 0.3 AST 17 ALT 15 Alkaline Phosphatase 61 Total Protein 7.9 Albumin 4.7 Globulin 3.2 Albumin/Globulin Ratio 1.5 Lipase 39 Urine Color YELLOW Urine Clarity CLEAR Urine pH 7.0 Ur Specific [place] 1.010 Urine Protein NEGATIVE Urine Glucose (UA) NEGATIVE Urine Ketones NEGATIVE Urine Occult Blood TRACE-LYSE Urine Nitrite NEGATIVE Urine Bilirubin NEGATIVE Urine Urobilinogen 0.2 (NORMAL) Ur Leukocyte Esterase NEGATIVE Ur Microscopic Review NOT INDICATED Urine Culture Comments NOT INDICATED Urine HCG, Qual NEGATIVE PD MEDICAL DECISION MAKING - ED course ED course: She presents with low back pain, some systemic symptoms but work-up was negative and she was reassured. Departure - Departure Disposition: 01 Home, Self Care Clinical Impression: Right low back pain Qualifiers: Chronicity: acute Sciatica presence: without sciatica Qualified Code(s): M54.5 - Low back pain Condition: Good Record reviewed to determine appropriate education?: Yes Instructions: ED Low Back Pain Injury Prescriptions: Hydrocodone/Acetaminophen [Hydrocodon-Acetaminophen 5-325] 1 - 2 each PO Q6H PRN #10 tablet PRN Reason: pain Ibuprofen [Motrin] 800 mg PO Q8H PRN #30 tablet PRN Reason: PAIN &/OR FEVER Comments: Your urine is normal, your labs are normal without evidence of infection, electrolyte abnormality, problems with the liver or kidneys or pancreas. Return for new or worsening symptoms. Follow-up with your doctor, next available appointment. Do not drink or drive while taking narcotic pain medication. Note that many narcotic pain relievers also contain Tylenol/acetaminophen. Please ensure that your total dose of acetaminophen from all sources does not exceed 3 g (3000 mg) per day. You may get constipated while on this medication. Take a stool softener such as Colace twice a day while you are on it. Also add an asgg-wtl-glaghlw laxative such as senna or MiraLAX on any day that you do not have a bowel movement. If you received a narcotic pain medication or sedative while in the emergency department, do not drive for the next 24 hours. Discharge Date/Time: 06/22/19 18:40
[2019-06-22 18:11] LABS: BASOPHILS % (AUTO) 0.5 %; EOSINOPHILS # (AUTO) 0.1 10^3/uL (0.0-0.7); EOSINOPHILS % (AUTO) 1.4 %; HGB - HEMOGLOBIN 13.8 g/dL (12.0-16.0); LYMPHOCYTES # (AUTO) 2.4 10^3/uL (1.5-3.5); LYMPHOCYTES % (AUTO) 30.1 %; MEAN CORPUSCULAR HEMOGLOBIN 27.2 pg (27.0-31.0); MEAN CORPUSCULAR HGB CONC 31.4 g/dL (32.0-36.0); MEAN CORPUSCULAR VOLUME 86.6 fL (81.0-99.0); MEAN PLATELET VOLUME 10.6 fL (7.9-10.8); MONOCYTES # (AUTO) 0.4 10^3/uL (0.0-1.0); MONOCYTES % (AUTO) 4.4 %; NEUTROPHILS % (AUTO) 63.3 %; PLT - PLATELET COUNT 231 10^3/uL (130-450); RED BLOOD COUNT 5.07 10^6/uL (4.20-5.40); RED CELL DISTRIBUTION WIDTH 14.4 % (12.0-15.0); WHITE BLOOD COUNT 7.9 x10^3/uL (4.8-10.8)
[2019-06-22 18:28] LABS: ALBUMIN 4.7 g/dL (3.2-5.5); ALBUMIN/GLOBULIN RATIO 1.5 (1.0-2.2); BILIRUBIN,TOTAL 0.3 mg/dL (0.2-1.0); CALCIUM 9.4 mg/dL (8.5-10.3); CREATININE 0.6 mg/dL (0.4-1.0); TOTAL PROTEIN 7.9 g/dL (6.7-8.2)
== END 2019-06-22 18:40 | disposition home or self-care (01) ==
LOC: ED 16:04
DX: M54.5 Low back pain (principal); F17.200 Nicotine dependence, unspecified, uncomplicated
CPT/HCPCS: 36415; 80053; 81003; 81025; 83690; 85025; 99283; A9270; 81001; 87086

== ENCOUNTER 2019-07-09 13:58 | Emergency (ER) | payer MEDICAID ==
[2019-07-09 14:10] VITALS: BP 145/82
--- NOTE | 2019-07-09 15:51 | ED Physician Documentation ---
PD HPI HEENT - Stated complaint Stated Complaint: COUGH/CHEST PRESSURE - Chief complaint Chief Complaint: Resp - History obtained from History obtained from: Patient - History of Present Illness Timing - onset: Other (34-year-old woman with history of tobacco abuse presents with 4 days of cough productive of green and sometimes slightly blood-tinged sputum associated with fever to 101. She is not short of breath though. Coughing is keeping her up at night. 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 - Present Medications Home Medications: Ambulatory Orders Medication Instructions Recorded Confirmed Citalopram [CeleXA] 10 mg PO ONCE 03/05/17 03/05/17 Cyclobenzaprine [Flexeril] 10 mg PO TID PRN #20 tablet 07/30/18 Hydrocodone/Acetaminophen 1 - 2 each PO Q6H PRN #10 tablet 06/22/19 [Hydrocodon-Acetaminophen 5-325] Ibuprofen [Motrin] 800 mg PO Q8H PRN #30 tablet 06/22/19 Albuterol Sulf [Ventolin Hfa 1 - 2 puffs INH Q4HR PRN #1 inhaler 07/09/19 Inhaler] Doxycycline Hyclate 100 mg PO BID #20 capsule 07/09/19 guaiFENesin/CODEINE [Robitussin AC] 5 - 10 ml PO Q6H PRN #120 ml 07/09/19 predniSONE [Deltasone] 60 mg PO DAILY 5 Days #15 tablet 07/09/19 - Allergies Allergies/Adverse Reactions: Allergies Allergy/AdvReac Type Severity Reaction Status Date / Time Penicillins Allergy Intermediate Hives Verified 03/23/19 19:56 - Social History Does the pt smoke?: Yes Smoking Status: Current every day smoker Does the pt drink ETOH?: No Does the pt have substance abuse?: Yes Substance Use and Type: Marijuana - Immunizations Immunizations are current?: Yes - POLST Patient has POLST: No PD ED PE NORMAL - Vitals Vital signs reviewed: Yes - General General: Alert and oriented X 3, No acute distress - HEENT HEENT: PERRL, EOMI - Neck Neck: Supple, no meningeal sign, No bony TTP - Cardiac Cardiac: RRR, No murmur - Respiratory Respiratory: No respiratory distress, Clear bilaterally - Abdomen Abdomen: Non tender - Neuro Neuro: Alert and oriented X 3, Normal speech - Psych Psych: Normal mood, Normal affect Results - Vitals Vitals: Vital Signs - 24 hr 07/09/19 14:07 Temperature 36.9 C Heart Rate 77 Respiratory 18 Rate Blood Pressure 145/82 H O2 Saturation 98 Oxygen O2 Source Room air PD MEDICAL DECISION MAKING - ED course ED course: 34-year-old smoker presents with clinical syndrome consistent with bronchitis. Given the smoking she may have some component of COPD and is treated for same with steroids, antibiotics and an inhaler. Departure - Departure Disposition: 01 Home, Self Care Clinical Impression: Bronchitis Condition: Good Record reviewed to determine appropriate education?: Yes Instructions: ED Bronchitis Asthmatic Prescriptions: Albuterol Sulf [Ventolin Hfa Inhaler] 1 - 2 puffs INH Q4HR PRN #1 inhaler PRN Reason: Shortness Of Air/Wheezing Doxycycline Hyclate 100 mg PO BID #20 capsule guaiFENesin/CODEINE [Robitussin AC] 5 - 10 ml PO Q6H PRN #120 ml PRN Reason: Cough predniSONE [Deltasone] 60 mg PO DAILY 5 Days #15 tablet Comments: Tobacco use in any amounts will always make a syndrome like this worse, I would completely abstain from tobacco. Return for new worsening symptoms. Follow-up with your doctor in a week if not better.
== END 2019-07-09 15:50 | disposition home or self-care (01) ==
LOC: ED 13:58
DX: J40 Bronchitis, not specified as acute or chronic (principal); F17.200 Nicotine dependence, unspecified, uncomplicated
CPT/HCPCS: 99283; 99284

== ENCOUNTER 2019-10-24 14:19 | Emergency (ER) | payer MEDICAID ==
--- NOTE | 2019-10-24 16:52 | ED Physician Documentation ---
PD HPI UPPER EXT INJURY - Stated complaint Stated Complaint: RT HAND NUMBNESS, NECK/SHOULDER PX - Chief complaint Chief Complaint: Ext Problem - History obtained from History obtained from: Patient ([age]-year-old female comes in today with chief complaint of right trapezium shoulder pain with radiation going down into her arm. The patient states that she was moving from one apartment to another this weekend, moving lots of heavy objects, she states that she She took ibuprofen last night 800 mg, with some good relief. When she woke this morning she had some pain as well so she took ibuprofen and Tylenol which gave her good relief throughout the day. 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: Tubal ligation - Present Medications Home Medications: Ambulatory Orders Medication Instructions Recorded Confirmed Cyclobenzaprine [Flexeril] 10 mg PO TID PRN #20 tablet 10/24/19 - Allergies Allergies/Adverse Reactions: Allergies Allergy/AdvReac Type Severity Reaction Status Date / Time Penicillins Allergy Intermediate Hives Verified 10/24/19 14:50 - Social History Does the pt smoke?: Yes Smoking Status: Current every day smoker Does the pt drink ETOH?: No Does the pt have substance abuse?: Yes - Immunizations Immunizations are current?: Yes - POLST Patient has POLST: No Results - Vitals Vitals: Vital Signs - 24 hr 10/24/19 10/24/19 10/24/19 14:50 16:20 17:07 Temperature 36.8 C Heart Rate 71 62 85 Respiratory 18 16 16 Rate Blood Pressure 128/79 110/65 132/65 H O2 Saturation 98 99 99 Oxygen O2 Source Room air Departure - Departure Disposition: 01 Home, Self Care Clinical Impression: Trapezius muscle strain Qualifiers: Encounter type: initial encounter Laterality: right Qualified Code(s): S46.811A - Strain of other muscles, fascia and tendons at shoulder and upper arm level, right arm, initial encounter Condition: Good Instructions: ED Neck Back Pain General Prescriptions: Cyclobenzaprine [Flexeril] 10 mg PO TID PRN #20 tablet PRN Reason: Spasms Comments: Patient has right trapezium muscle strain with radiation going down to her right upper extremity. Patient is encouraged to take ibuprofen 800 mg 3 times a day for the next 3 to 5 days, drinking copious amounts of water while taking this. She is given a prescription for cyclobenzaprine 10 mg #20 to take 1 at bedtime, she can use a heating pad on her neck at night as well to help with the muscle strain. She is also provided a sling to wear while she is at work tomorrow. The patient declines to get a note for work dismissal tomorrow. She is to follow-up with her primary care provider if her symptoms do not improve over the next week, she can return to the ER or if they worsen. Patient verbalized understanding and is agreement with this plan. Discharge Date/Time: 10/24/19 17:08
[2019-10-24 17:08] VITALS: BP 132/65
== END 2019-10-24 17:08 | disposition home or self-care (01) ==
LOC: ED 14:19
DX: S46.811A Strain of other muscles, fascia and tendons at shoulder and upper arm level, right arm, initial encounter (principal); X50.0XXA Overexertion from strenuous movement or load, initial encounter; Y93.E6 Activity, residential relocation; F17.200 Nicotine dependence, unspecified, uncomplicated
CPT/HCPCS: 99281; 99282

== ENCOUNTER 2019-11-25 11:00 | Outpatient (CLI) | payer MEDICAID ==
--- NOTE | 2019-11-25 20:21 | Ultrasound Report ---
Reason: ABNORMAL UTERINE BLEEDING Procedure Date: 11/25/2019 Accession Number: [id number] / [id number] Procedure: US - Pelvic w/Transvaginal CPT Code: Final Report FULL RESULT: EXAM: PELVIC ULTRASOUND EXAM DATE: 11/25/2019 11:05 AM. CLINICAL HISTORY: Abnormal uterine bleeding. Dyspareunia for 6 months. Heavy bleeding last 2 days reported LMP 10/25/2019. History of tubal ligation. G4, P3. COMPARISON: ABDOMEN/PELVIS W/O 04/18/2013 9:57 PM. TECHNIQUE: Realtime transabdominal pelvic scan performed to identify the uterus and adnexa and as an overview of other pelvic structures, followed by transvaginal scan to provide greater detail of the uterus and adnexa, with static image documentation. FINDINGS: Uterus: 8.8 x 5.9 x 6.4 cm, volume 173 cc. Retroverted position. Upper normal in size. Unremarkable echotexture. Masses: None. Endometrium: 11 mm. Homogeneous echotexture. No endometrial masses. No increased vascularity. Cervix: Nabothian cyst noted. Right Ovary: 3 x 2.1 x 2.5 cm, volume 8.2 cc. Normal echotexture and blood flow. Normal follicles. Echogenic 0.6 cm in the right ovary may represent a dermoid. Finding may also be the result of ovulatory changes. Left Ovary: 4 x 1.9 x 3 cm, volume 11.7 cc. Normal echotexture and blood flow. Complex 1.5 x 1 x 1.2 cm lesion is seen within the left ovary with peripheral vascularity typically seen with a collapsing follicular/corpus cyst. Free Fluid: Trace pelvic free fluid. Other: None. IMPRESSION: 1. Upper normal urine volume. No uterine masses. 2. Unremarkable sonographic appearance of the endometrium measuring 11 mm. No endometrial masses or increased vascularity. 3. 1.5 cm left ovarian collapsing follicular/corpus cyst. RADIA
== END 2019-11-25 11:01 | disposition home or self-care (01) ==
LOC: DI 11:00
PROVIDERS: ATTEND Advanced Practice Midwife
DX: N83.202 Unspecified ovarian cyst, left side (principal)
CPT/HCPCS: 76830; 76856

== ENCOUNTER 2020-02-18 10:17 | Outpatient (CLI) | payer MEDICAID ==
[2020-02-18 11:03] LABS: BASOPHILS % (AUTO) 0.5 %; EOSINOPHILS # (AUTO) 0.2 10^3/uL (0.0-0.7); EOSINOPHILS % (AUTO) 2.7 %; HGB - HEMOGLOBIN 12.9 g/dL (12.0-16.0); LYMPHOCYTES # (AUTO) 1.8 10^3/uL (1.5-3.5); MEAN CORPUSCULAR HEMOGLOBIN 28.5 pg (27.0-31.0); MEAN CORPUSCULAR HGB CONC 32.3 g/dL (32.0-36.0); MEAN CORPUSCULAR VOLUME 88.3 fL (81.0-99.0); MEAN PLATELET VOLUME 10.1 fL (7.9-10.8); MONOCYTES # (AUTO) 0.4 10^3/uL (0.0-1.0); MONOCYTES % (AUTO) 4.7 %; NEUTROPHILS # (AUTO) 5.8 10^3/uL (1.5-6.6); NEUTROPHILS % (AUTO) 69.7 %; PLT - PLATELET COUNT 248 10^3/uL (130-450); RED BLOOD COUNT 4.52 10^6/uL (4.20-5.40); RED CELL DISTRIBUTION WIDTH 14.8 % (12.0-15.0); WHITE BLOOD COUNT 8.3 x10^3/uL (4.8-10.8)
[2020-02-18 11:19] LABS: ALBUMIN 3.7 g/dL (3.2-5.5); ALBUMIN/GLOBULIN RATIO 1.3 (1.0-2.2); ALKALINE PHOSPHATASE 58 IU/L (42-121); ALT ALANINE AMINOTRANSFERASE 16 IU/L (10-60); AST ASPARTATE AMINOTRANSFERASE 18 IU/L (10-42); BILIRUBIN,TOTAL 0.7 mg/dL (0.2-1.0); BUN - BLOOD UREA NITROGEN 14 mg/dL (6-20); CALCIUM 8.4 mg/dL (8.5-10.3); CARBON DIOXIDE - CO2 27 mmol/L (21-32); CHLORIDE 99 mmol/L (101-111); CHOL/HDL RATIO 2.6 (<4.4); CHOLESTEROL 179 mg/dL; CREATININE 0.6 mg/dL (0.4-1.0); GLUCOSE 98 mg/dL (70-100); HDL CHOLESTEROL 70 mg/dL; LDL CHOLESTEROL,CALCULATED 100 mg/dL; LDL/HDL RATIO 1.4 (<4.4); SODIUM 135 mmol/L (135-145); TOTAL PROTEIN 6.6 g/dL (6.7-8.2); VLDL CHOLESTEROL 9 mg/dL
[2020-02-18 11:30] LABS: THYROID STIMULATING HORMONE 0.35 uIU/mL (0.34-5.60)
== END 2020-02-18 10:18 | disposition home or self-care (01) ==
LOC: LAB 10:17
PROVIDERS: ATTEND Internal Medicine
DX: E66.9 Obesity, unspecified (principal); F32.9 Major depressive disorder, single episode, unspecified; F41.9 Anxiety disorder, unspecified; Z79.899 Other long term (current) drug therapy
CPT/HCPCS: 36415; 80053; 80061; 81599; 82607; 83721; 84436; 84443; 84479; 85025

== ENCOUNTER 2020-04-01 17:32 | Outpatient (CLI) | payer MEDICAID ==
--- NOTE | 2020-04-02 09:21 | XRAY Report ---
PROCEDURE: Shoulder 3 View RT INDICATIONS: Neck pain, right shoulder pain TECHNIQUE: 3 views of the shoulder were acquired. COMPARISON: None. FINDINGS: Bones: No fractures or dislocations. No suspicious bony lesions. Visualized ribs appear intact. Soft tissues: No suspicious soft tissue calcifications. IMPRESSION: Normal right shoulder radiographs. Reviewed by: Reynold Mccoy MD on 04/02/2020 9:19 AM PDT Approved by: Reynold Mccoy MD on 04/02/2020 9:19 AM PDT Station ID: [id number]
--- NOTE | 2020-04-02 09:31 | XRAY Report ---
PROCEDURE: Cervical Spine 2 View INDICATIONS: Neck pain, right shoulder pain TECHNIQUE: 3 view(s) of the cervical spine were acquired. COMPARISON: None. FINDINGS: Bones: Normal cervical spine vertebral body height and alignment. Intervertebral disc disc height los s and C4-C5 and C5-C6 with associated degenerative endplate changes and uncovertebral hypertrophy. Soft tissues: No prevertebral soft tissue swelling. IMPRESSION: Degenerative changes at C4-C5 and C5-C6. MRI could be considered for further evaluation if clinically warranted. Reviewed by: Reynold Mccoy MD on 04/02/2020 9:30 AM PDT Approved by: Reynold Mccoy MD on 04/02/2020 9:30 AM PDT Station ID: [id number]
== END 2020-04-01 17:33 | disposition home or self-care (01) ==
LOC: DI 17:32
PROVIDERS: ATTEND Family Medicine
DX: M25.511 Pain in right shoulder (principal); M50.322 Other cervical disc degeneration at C5-C6 level; M47.812 Spondylosis without myelopathy or radiculopathy, cervical region
CPT/HCPCS: 72040

== ENCOUNTER 2020-04-11 11:02 | Emergency (ER) | payer MEDICAID ==
[2020-04-11] MEDS ORDERED: diphenhydrAMINE INJ 50 MG/ML VIAL IVP STA (11:51)
[2020-04-11] MEDS ORDERED: SODIUM CHLORIDE 0.9% 1,000 ML IV STA (11:52)
[2020-04-11] MEDS ORDERED: KETOROLAC 30 MG/ML VIAL IVP STA (11:52)
[2020-04-11] MEDS ORDERED: PROCHLORPERAZINE 10 MG/2 ML VIAL IVP STA (11:52)
--- NOTE | 2020-04-11 11:55 | ED Physician Documentation ---
History of Present Illness - Stated complaint Stated Complaint: GRIDER X 7DAYS - Chief complaint Chief Complaint: Heent - History obtained from History obtained from: Patient - History of Present Illness Timing: Prior to arrival, How many days ago (7) - Additonal information Additional information: 35-year-old female presents to the emergency department for chief complaint of headache that has been ongoing for 1 week. She does report a history of migraines but never one that has lasted this long. She reports light and noise sensitivity. At home she has been managing with ibuprofen and hydrocodone to no effect. She endorses nausea but no vomiting. She has had no fever. No abdominal pain dysuria urgency or frequency. I did see this young lady March 02 for similar. At that time her headache resolved in the ED following Compazine Benadryl and Toradol. She did follow-up with her primary care doctor and reports to me that she recently underwent MRI imaging she is scheduled to follow-up with her primary care doctor to address longer-term management of her more frequent and recurrent headaches. Review of Systems Constitutional: denies: Fever, Chills Eyes: reports: Photophobia. denies: Loss of vision, Decreased vision Ears: denies: Loss of hearing, Tinnitus/ringing Nose: denies: Rhinorrhea / runny nose, Congestion, Epistaxis Cardiac: denies: Chest pain / pressure, Pedal edema, Calf pain Respiratory: denies: Dyspnea, Cough, Hemoptysis GI: reports: Nausea. denies: Abdominal Pain, Abdominal Swelling, Vomiting, Constipation : reports: LMP (03/28/20). denies: Dysuria, Frequency, Hesitancy Skin: denies: Rash, Lesions Musculoskeletal: reports: Neck pain. denies: Back pain, Extremity pain, Joint pain, Extremity swelling Neurologic: reports: Headache. 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 : None HEENT: Other Psych: Depression, Anxiety Musculoskeletal: Chronic back pain Derm: None Other Past Medical History: Bechtes syndrome - Past Surgical History Past Surgical History: Yes General: Colonoscopy, EGD /COOK SHORT ORDER: Tubal ligation - Present Medications Home Medications: Ambulatory Orders Medication Instructions Recorded Confirmed Cyclobenzaprine [Flexeril] 10 mg PO TID PRN #20 tablet 10/24/19 - Allergies Allergies/Adverse Reactions: Allergies Allergy/AdvReac Type Severity Reaction Status Date / Time Penicillins Allergy Intermediate Hives Verified 04/11/20 11:13 - Social History Does the pt smoke?: Yes Smoking Status: Current every day smoker Does the pt drink ETOH?: Yes Does the pt have substance abuse?: Yes - Immunizations Immunizations are current?: Yes - POLST Patient has POLST: No PD ED PE NORMAL - General General: Alert and oriented X 3, Well developed/nourished, Other (wearing sunglasses; appears bothered by headache) - HEENT HEENT: Atraumatic, PERRL, EOMI, Ears normal, Pharynx benign - Neck Neck: Supple, no meningeal sign, No adenopathy - Cardiac Cardiac: RRR, No murmur - Respiratory Respiratory: No respiratory distress, Clear bilaterally - Abdomen Abdomen: Normal bowel sounds, Soft, Non tender - Female Female : Deferred - Derm Derm: Normal color, Warm and dry, No rash - Extremities Extremities: No deformity, No tenderness to palpate - Neuro Neuro: Alert and oriented X 3, band saw marker 2-12 intact, No motor deficit, No sensory deficit, Normal speech Eye Opening: Spontaneous Motor: Obeys Commands Verbal: Oriented GCS Score: 15 Results - Vitals Vitals: Vital Signs - 24 hr 04/11/20 04/11/20 11:11 13:30 Temperature 36.9 C 36.6 C Heart Rate 85 70 Respiratory 18 16 Rate Blood Pressure 121/86 H 133/79 H O2 Saturation 98 99 Oxygen O2 Source Room air - Labs Labs: Laboratory Tests 04/11/20 04/11/20 12:05 12:33 HCG, Quant < 0.60 Urine Color YELLOW Urine Clarity HAZY Urine pH 7.0 Ur Specific [place] 1.020 Urine Protein NEGATIVE Urine Glucose (UA) NEGATIVE Urine Ketones NEGATIVE Urine Occult Blood NEGATIVE Urine Nitrite NEGATIVE Urine Bilirubin NEGATIVE Urine Urobilinogen 0.2 (NORMAL) Ur Leukocyte Esterase SMALL H Urine RBC 0-5 Urine WBC 4-5 Ur Squamous Epith Cells MOD Squamous H Urine Bacteria Few Ur Microscopic Review INDICATED Urine Culture Comments NOT INDICATED PD MEDICAL DECISION MAKING - ED course Complexity details: reviewed results, considered differential, d/w patient ED course: 35-year-old female presented to the emergency department with a headache that had been persistent for 7 days. She had no focal neuro deficits. Headache was not sudden onset or worst of life. I had very little suspicion that she had a subarachnoid hemorrhage. She reports that approximately 1 week ago she had an MRI completed at [facility] of her brain that did not show any worrisome findings. In the emergency department she was given a liter of saline Benadryl Compazine which fully resolve the headache. At the time of reevaluation she was no longer with sunglasses proclaimed her self headache free and desire to be discharged home. I did advise close follow-up with a primary care doctor to discuss long- term management of her recurring migraines and to consider alternative medications outside of Vicodin. Departure - Departure Disposition: 01 Home, Self Care Clinical Impression: Migraine Qualifiers: Migraine type: other Status migrainosus presence: without status migrainosus Intractability: not intractable Qualified Code(s): G43.809 - Other migraine, not intractable, without status migrainosus Condition: Stable Record reviewed to determine appropriate education?: Yes Instructions: ED Headache Migraine Follow-Up: Enzo Vera MD [Primary Care Provider] - Comments: I am glad that your headache is better. Please continue to drink lots of fluids and get rest at home. I think it is important to discuss the long-term management of your migraines with your primary care doctor. If at any point you develop fevers have weakness in your arms or legs, have the headache returned that you are not able to control at home or have any other emergent concerns please return to the emergency department for repeat evaluation
[2020-04-11 12:13] LABS: BILIRUBIN,URINE NEGATIVE (NEGATIVE); GLUCOSE, URINE (UA) NEGATIVE (NEGATIVE); KETONES,URINE (UA) NEGATIVE (NEGATIVE); LEUKOCYTE ESTERASE, URINE SMALL (NEGATIVE); NITRITE,URINE NEGATIVE (NEGATIVE); OCCULT BLOOD,URINE NEGATIVE (NEGATIVE); PROTEIN,URINE NEGATIVE (NEGATIVE); UROBILINOGEN,URINE 0.2 (NORMAL) E.U./dL (NORMAL)
[2020-04-11 12:17] LABS: CLARITY,URINE HAZY (CLEAR)
[2020-04-11 12:27] LABS: RBC,URINE 0-5 /HPF (0-5)
[2020-04-11 12:28] LABS: BACTERIA,URINE Few /HPF (None Seen); SQUAMOUS EPITHELIAL CELL,UR MOD Squamous (<= Few)
[2020-04-11 13:31] VITALS: BP 133/79
== END 2020-04-11 13:45 | disposition home or self-care (01) ==
LOC: ED 11:02
DX: G43.809 Other migraine, not intractable, without status migrainosus (principal); F17.200 Nicotine dependence, unspecified, uncomplicated
CPT/HCPCS: 36415; 81001; 84702; 96374; 99282; 99283; J1200; 81003; 87086

== ENCOUNTER 2020-07-25 20:22 | Emergency (ER) | payer MEDICAID ==
[2020-07-25] MEDS ORDERED: MECLIZINE 12.5 MG TABLET PO STA (21:07)
[2020-07-25] MEDS ORDERED: DEXAMETHASONE 10 MG/ML VIAL PO STA (21:07)
[2020-07-25] MEDS ORDERED: CHERRY SYRUP 10 ML UDC PO ONE (21:07)
[2020-07-25] MEDS ORDERED: AZITHROMYCIN 250 MG TABLET PO STA (21:35)
--- NOTE | 2020-07-25 21:37 | ED Physician Documentation ---
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 She denies any cough but does state that she has been clearing her throat frequently. She denies any fever. Review of Systems Constitutional: denies: Fever, Chills, Myalgias Eyes: denies: Decreased vision Ears: reports: Ear pain, Tinnitus/ringing Nose: denies: Rhinorrhea / runny nose, Congestion Throat: reports: Sore throat Cardiac: denies: Chest pain / pressure, Palpitations Respiratory: denies: Dyspnea, Cough GI: reports: Nausea. denies: Vomiting PD PAST MEDICAL HISTORY - Past Medical History Past Medical History: Yes Cardiovascular: None Respiratory: None Neuro: Headaches Endocrine/Autoimmune: None GI: Ulcers PUPPY TRAINER: None : None HEENT: Other Psych: Depression, Anxiety Musculoskeletal: Chronic back pain, Other Derm: None Other Past Medical History: Rt shoulder pain - Past Surgical History Past Surgical History: Yes General: Colonoscopy, EGD /PUPPY TRAINER: Tubal ligation - Present Medications Home Medications: Ambulatory Orders Medication Instructions Recorded Confirmed Cyclobenzaprine [Flexeril] 10 mg PO TID PRN #20 tablet 10/24/19 07/25/20 Azithromycin [Zithromax] 250 mg PO DAILY #4 tablet 07/25/20 Meclizine [Antivert] 25 mg PO Q6H PRN #20 tablet 07/25/20 - Allergies Allergies/Adverse Reactions: Allergies Allergy/AdvReac Type Severity Reaction Status Date / Time Penicillins Allergy Intermediate Hives Verified 07/25/20 20:27 - Social History Does the pt smoke?: Yes Smoking Status: Current every day smoker Does the pt drink ETOH?: Yes Does the pt have substance abuse?: Yes - Immunizations Immunizations are current?: Yes - POLST Patient has POLST: No PD ED PE NORMAL - Vitals Vital signs reviewed: Yes (Tachycardic and hypertensive) - General General: Alert and oriented X 3, No acute distress, Well developed/nourished - HEENT HEENT: Atraumatic, PERRL, EOMI, Pharynx benign, Other (Right TM is clear left is obscured by cerumen and when this is removed it reveals erythema and distortion of the landmarks to the TM.) - Neck Neck: Supple, no meningeal sign, No bony TTP - Cardiac Cardiac: RRR, No murmur - Respiratory Respiratory: No respiratory distress, Clear bilaterally - Abdomen Abdomen: Soft, Non tender - Derm Derm: Normal color, Warm and dry, No rash - Extremities Extremities: No deformity, No edema - Neuro Neuro: Alert and oriented X 3, compliance analyst 2-12 intact, No motor deficit, No sensory deficit, Normal speech Eye Opening: Spontaneous Motor: Obeys Commands Verbal: Oriented GCS Score: 15 - Psych Psych: Normal mood, Normal affect Results - Vitals Vitals: Vital Signs - 24 hr 07/25/20 07/25/20 20:27 20:34 Temperature 36.6 C 36.6 C Heart Rate 109 H 109 H Respiratory 16 16 Rate Blood Pressure 138/86 H 138/86 H O2 Saturation 98 98 Oxygen O2 Source Room air Procedures - General procedure General procedure: Cerumen removal: With the use of a mineral oil enema the ear was saturated with mineral oil and after a period of time the ear was irrigated with warm saline. This relieved all of the cerumen allowing examination of the TM. PD MEDICAL DECISION MAKING - ED course Complexity details: considered differential, d/w patient ED course: 35-year-old female with acute dizziness has nystagmus and ear pain as well as vertigo. She has cerumen impaction and she is administered dexamethasone and meclizine and a mineral oil enema is used to soften her wax for removal after this is removed she clearly has otitis on the left side this is treated further with a azithromycin. She is allergic to penicillin. She does have a physician who she will be able to follow-up with should this antibiotic be ineffective. Departure - Departure Disposition: 01 Home, Self Care Clinical Impression: Vertigo Otitis media Qualifiers: Otitis media type: suppurative Chronicity: acute Laterality: left Recurrence: not specified as recurrent Spontaneous tympanic membrane rupture: without spontaneous rupture Qualified Code(s): H66.002 - Acute suppurative otitis media without spontaneous rupture of ear drum, left ear Condition: Stable Instructions: ED Otitis Media Acute Adult, ED Vertigo Unspecified Follow-Up: Enzo Vera MD [Primary Care Provider] - Prescriptions: Meclizine [Antivert] 25 mg PO Q6H PRN #20 tablet PRN Reason: Dizziness Azithromycin [Zithromax] 250 mg PO DAILY #4 tablet Forms: Activity restrictions
[2020-07-25 21:49] VITALS: BP 135/83
== END 2020-07-25 21:49 | disposition home or self-care (01) ==
LOC: ED 20:22
DX: H66.002 Acute suppurative otitis media without spontaneous rupture of ear drum, left ear (principal); R42 Dizziness and giddiness; H61.22 Impacted cerumen, left ear; H55.00 Unspecified nystagmus; R00.0 Tachycardia, unspecified; R03.0 Elevated blood-pressure reading, without diagnosis of hypertension; F17.200 Nicotine dependence, unspecified, uncomplicated; Z88.0 Allergy status to penicillin
CPT/HCPCS: 69209; 99282; 99283; A9270

== ENCOUNTER 2020-08-14 15:48 | Emergency (ER) | payer MEDICAID ==
[2020-08-14] MEDS ORDERED: HYDROcod/ACETAM 5/325 MG TABLET PO STA (16:06)
--- NOTE | 2020-08-14 16:10 | ED Physician Documentation ---
History of Present Illness - Stated complaint Stated Complaint: RIGHT SHOULDER INJ - Chief complaint Chief Complaint: Trauma Ext - History obtained from History obtained from: Patient - History of Present Illness Timing: Today Pain level max: 8 Pain level now: 8 - Additonal information Additional information: Patient is a 35-year-old female who presents to the emergency department with a fall earlier today. She states that she struck the right side of her face on the counter. She states that a mug fell on her head. She states that she reinjured her right shoulder. She is 1 week status post arthroscopy in the shoulder. She states she has tingling to the right fifth finger, but this was also the reason she had the surgery. No loss of consciousness. Has a continued headache. Mild nausea. No vomiting. Worse with movement and better with rest. No low back pain. She states she has cervical radiculopathy and always has pain in her neck. Patient is not , breast-feeding or trying to become . Review of Systems Ten Systems: 10 systems reviewed and negative Constitutional: denies: Fever, Chills Eyes: denies: Decreased vision, Photophobia Throat: denies: Sore throat Cardiac: denies: Chest pain / pressure Respiratory: denies: Cough GI: denies: Vomiting, Diarrhea Skin: denies: Rash Neurologic: denies: Generalized weakness, Focal weakness, Numbness, Confused, Altered mental status, LOC PD PAST MEDICAL HISTORY - Past Medical History Cardiovascular: None Respiratory: None Neuro: Headaches Endocrine/Autoimmune: None GI: Ulcers HYDROMETALLURGICAL ENGINEER: None : None HEENT: Other Psych: Depression, Anxiety Musculoskeletal: Chronic back pain, Other Derm: None - Past Surgical History Past Surgical History: Yes General: Colonoscopy, EGD /HYDROMETALLURGICAL ENGINEER: Tubal ligation - Present Medications Home Medications: Ambulatory Orders Medication Instructions Recorded Confirmed Cyclobenzaprine [Flexeril] 10 mg PO TID PRN #20 tablet 10/24/19 07/25/20 Azithromycin [Zithromax] 250 mg PO DAILY #4 tablet 07/25/20 Meclizine [Antivert] 25 mg PO Q6H PRN #20 tablet 07/25/20 - Allergies Allergies/Adverse Reactions: Allergies Allergy/AdvReac Type Severity Reaction Status Date / Time Penicillins Allergy Intermediate Hives Verified 08/14/20 15:50 - Social History Does the pt smoke?: Yes Smoking Status: Current every day smoker Does the pt drink ETOH?: Yes Does the pt have substance abuse?: Yes - Immunizations Immunizations are current?: Yes - POLST Patient has POLST: No PD ED PE NORMAL - Vitals Vital signs reviewed: Yes - General General: Alert and oriented X 3, No acute distress - HEENT HEENT: Ears normal, Moist mucous membranes, Pharynx benign, Other (No scalp hematomas or palpable skull fractures. There is periorbital ecchymosis around the right eye and zygoma, extraocular movements intact.) - Neck Neck: Supple, no meningeal sign, Other (Tender to palpation mid C-spine, C2-C6. No step-off or deformity.) - Cardiac Cardiac: RRR - Respiratory Respiratory: No respiratory distress, Clear bilaterally - Derm Derm: Warm and dry - Extremities Extremities: Other (R shoulder - Surgical incisions are well-healed. Clean dry and intact. No signs of infection. Diffuse tenderness about the right shoulder. Limited range of motion secondary to pain. NVI) - Neuro Neuro: Alert and oriented X 3 Results - Vitals Vitals: Vital Signs - 24 hr 08/14/20 08/14/20 15:50 17:37 Temperature 36.9 C 36.7 C Heart Rate 78 82 Respiratory 18 18 Rate Blood Pressure 139/79 H 140/88 H O2 Saturation 99 100 Oxygen O2 Source Room air - Rads (name of study) head CT Radiology: Prelim report reviewed, EMP read contemporaneously, See rad report (no acute abnormality) c-spine ct Radiology: Prelim report reviewed, EMP read contemporaneously, See rad report (no acute abnormality) maxillofacial ct Radiology: Prelim report reviewed, EMP read contemporaneously, See rad report (no acute abnormality) R shoulder xray Radiology: Prelim report reviewed, EMP read contemporaneously, See rad report (no acute abnormality, post operative changes present.) PD MEDICAL DECISION MAKING - ED course Complexity details: reviewed results, re-evaluated patient, considered differential, d/w patient ED course: 35-year-old female with a fall today. Discussed the case with Dr. George, orthopedics at [facility] transmission repairer for her orthopedist. There are no acute findings on her x-rays or CT scans. She has pain medication for home. She is in a sling. No new neurological deficits. We will have her follow-up with her orthopedist for further care. Patient counseled regarding signs and symptoms for which I believe and urgent re-evaluation would be necessary. Patient with good understanding of and agreement to plan and is comfortable going home at this time This document was made in part using voice recognition software. While efforts are made to proofread this document, sound alike and grammatical errors may occur. Departure - Departure Disposition: 01 Home, Self Care Clinical Impression: Fall Qualifiers: Encounter type: initial encounter Qualified Code(s): W19.XXXA - Unspecified fall, initial encounter Shoulder pain Qualifiers: Chronicity: acute Laterality: right Qualified Code(s): M25.511 - Pain in right shoulder Contusion of face Qualifiers: Encounter type: initial encounter Qualified Code(s): S00.83XA - Contusion of other part of head, initial encounter Condition: Good Instructions: ED Mechanical Fall Follow-Up: Enzo Vera MD [Primary Care Provider] - [facility] [Provider Group] Comments: Follow-up with your doctor as needed for further care. I did discuss your case with [facility] orthopedics tonight. There are no acute findings on your x-rays or CT scans tonight. Follow-up with him for further care. Discharge Date/Time: 08/14/20 17:37
--- NOTE | 2020-08-14 16:53 | XRAY Report ---
PROCEDURE: Shoulder 3 View RT INDICATIONS: fall, R shoulder surgery, 1 wk s/p arthroscopy. TECHNIQUE: 04/01/2020 views of the shoulder were acquired. COMPARISON: None. FINDINGS: Bones: There is likely prior distal clavicle resection and acromioplasty with postsurgical widening o f AC joint. No gross acute fracture or dislocation. No suspicious bony lesions. Visualized ribs appe ar intact. Soft tissues: No suspicious soft tissue calcifications. IMPRESSION: Postsurgical changes in acromioclavicular joint. No acute shoulder fracture or dislocati on. Reviewed by: Adolph Galarza MD on 08/14/2020 4:52 PM PST Approved by: Adolph Galarza MD on 08/14/2020 4:52 PM PST Station ID: [id number]
--- NOTE | 2020-08-14 16:55 | CT Report ---
PROCEDURE: HEAD WO INDICATIONS: fall, head injury TECHNIQUE: Noncontrast 4.5 mm thick angled axial sections acquired from the foramen magnum to the vertex. For r adiation dose reduction, the following was used: automated exposure control, adjustment of mA and/or kV according to patient size. COMPARISON: None. FINDINGS: Image quality: Excellent. CSF spaces: Basal cisterns are patent. No extra-axial fluid collections. Ventricles are normal in size and shape. Brain: No intracranial hemorrhage, mass, or mass effect. Watts-white matter interface is preserved. Skull and face: Calvarium and visualized facial bones are intact, without suspicious lesions. Sinuses: Visualized sinuses and mastoids are clear. IMPRESSION: 1. No acute intracranial abnormality. Reviewed by: Eliud Anderson MD on 08/14/2020 4:53 PM [facility] Approved by: Eliud Anderson MD on 08/14/2020 4:53 PM [facility] Station ID: [id number]
--- NOTE | 2020-08-14 16:57 | CT Report ---
PROCEDURE: CERVICAL SPINE WO INDICATIONS: fall, neck pain TECHNIQUE: Noncontrast 3 mm thick sections acquired from the skull base to the T4 level. Sagittal and coronal r eformats were then constructed. For radiation dose reduction, the following was used: automated exp osure control, adjustment of mA and/or kV according to patient size. COMPARISON: None. FINDINGS: Image quality: Excellent. Bones: No fractures or dislocations. There is straightening of the cervical lordosis. Visualized sup erior ribs are intact. Soft tissues: Prevertebral soft tissues are normal in thickness. No paravertebral hematomas. No ap ical pneumothoraces. IMPRESSION: 1. No fracture or subluxation. Reviewed by: Eliud Anderson MD on 08/14/2020 4:55 PM [facility] Approved by: Eliud Anderson MD on 08/14/2020 4:55 PM [facility] Station ID: [id number]
--- NOTE | 2020-08-14 16:59 | CT Report ---
PROCEDURE: MAXILLOFACIAL WO INDICATIONS: fall, R periorbital injury TECHNIQUE: Noncontrast 1.5 mm thick axial images acquired from the mandible through the frontal sinuses, with co patti and sagittal reformatting. For radiation dose reduction, the following was used: automated ex posure control, adjustment of mA and/or kV according to patient size. COMPARISON: None. FINDINGS: Image quality: Excellent. Bones and teeth: Orbital pedraza are intact. Sinus pedraza show no fracture or deformity. Nasal bones and septum are intact. Visualized portions of the mandible demonstrate no fractures or subluxation. Zygomatic arches are intact. Pterygoid plates are intact. Visualized portions of the skull base an d auditory canals are intact. Sinuses: Minimal mucosal thickening involving inferior aspect of right maxillary sinus is seen. Rest of the paranasal sinuses are well aerated. Mastoid air cells are aerated. Soft tissues: Mild right periorbital soft tissue swelling and edema is seen. No other area of abnorma l soft tissue swelling or edema. No abscess collection. No enlarged lymph nodes. No soft tissue lace rations or debris. Vascular: Visualized vascular structures appear normal in the absence of contrast. Bony vascular fo ramina and canals are intact. IMPRESSION: 1. Mild right periorbital soft tissue swelling. No acute orbital wall fracture. No acute facial bone or nasal bone fracture. Nasal septum is midline. 2. Minimal mucosal thickening in right maxillary sinus inferior aspect. Rest of bilateral sinuses and mastoids are well aerated. Reviewed by: Adolph Galarza MD on 08/14/2020 4:58 PM PST Approved by: Adolph Galarza MD on 08/14/2020 4:58 PM PST Station ID: [id number]
[2020-08-14 17:38] VITALS: BP 140/88
== END 2020-08-14 17:37 | disposition home or self-care (01) ==
LOC: ED 15:48
DX: S00.83XA Contusion of other part of head, initial encounter (principal); W01.198A Fall on same level from slipping, tripping and stumbling with subsequent striking against other object, initial encounter; M25.511 Pain in right shoulder; F17.200 Nicotine dependence, unspecified, uncomplicated
CPT/HCPCS: 70450; 70486; 72125; 73030; 99284; A9270

== ENCOUNTER 2020-10-14 09:49 | Emergency (ER) | payer MEDICAID ==
[2020-10-14 10:16] LABS: BASOPHILS % (AUTO) 0.4 %; EOSINOPHILS # (AUTO) 0.2 10^3/uL (0.0-0.7); HCT - HEMATOCRIT 40.7 % (37.0-47.0); HGB - HEMOGLOBIN 13.1 g/dL (12.0-16.0); LYMPHOCYTES # (AUTO) 1.8 10^3/uL (1.5-3.5); LYMPHOCYTES % (AUTO) 16.7 %; MEAN CORPUSCULAR HEMOGLOBIN 28.5 pg (27.0-31.0); MEAN CORPUSCULAR HGB CONC 32.2 g/dL (32.0-36.0); MEAN CORPUSCULAR VOLUME 88.5 fL (81.0-99.0); MEAN PLATELET VOLUME 10.4 fL (7.9-10.8); MONOCYTES # (AUTO) 0.5 10^3/uL (0.0-1.0); MONOCYTES % (AUTO) 4.6 %; NEUTROPHILS # (AUTO) 7.9 10^3/uL (1.5-6.6); PLT - PLATELET COUNT 246 10^3/uL (130-450); RED CELL DISTRIBUTION WIDTH 14.5 % (12.0-15.0); WHITE BLOOD COUNT 10.5 x10^3/uL (4.8-10.8)
--- NOTE | 2020-10-14 10:21 | XRAY Report ---
PROCEDURE: Chest 1 View X-Ray INDICATIONS: Chest pain TECHNIQUE: One view of the chest was acquired. COMPARISON: 06/27/2013 FINDINGS: Surgical changes and devices: None. Lungs and pleura: No pleural effusions or pneumothorax. Lungs are clear. Mediastinum: Mediastinal contours appear normal. Heart size is normal. Bones and chest wall: No suspicious bony lesions. Overlying soft tissues appear unremarkable. IMPRESSION: No acute cardiopulmonary pathology. Reviewed by: Adolph Galarza MD on 10/14/2020 10:20 AM [facility] Approved by: Adolph Galarza MD on 10/14/2020 10:20 AM [facility] Station ID: [id number]
[2020-10-14 10:23] LABS: ALBUMIN/GLOBULIN RATIO 1.2 (1.0-2.2); BILIRUBIN,TOTAL 0.3 mg/dL (0.2-1.0); CALCIUM 9.3 mg/dL (8.5-10.3); CREATININE 0.5 mg/dL (0.4-1.0); POTASSIUM 4.2 mmol/L (3.5-5.0); TOTAL PROTEIN 7.4 g/dL (6.7-8.2)
[2020-10-14] MEDS ORDERED: SODIUM CHLORIDE 0.9% 1,000 ML IV STA (10:34)
--- NOTE | 2020-10-14 13:19 | ED Physician Documentation ---
PD HPI CHEST PAIN - Stated complaint Stated Complaint: CHEST PX - Chief complaint Chief Complaint: Cardiac - History obtained from History obtained from: Patient - Additional information Additional information: Patient comes emergency department chief complaint of twinges of pain in her chest with increasing frequency over the last 4 days. Patient states that it feels like a stabbing pain that lasts for a second and then goes away. Patient states that initially she would just get a single pain and then go for some hours without feeling another 1. However, she has noticed increasing frequently frequency until today, she had 5 stabs within a few minutes and began to become concerned. She states she also felt more tired than usual climbing up the stairs while carrying her 3-year-old. She denies any other dyspnea on exertion. No nausea or vomiting. Patient states that she felt dizzy today and got pale. She denies fevers. No chills. No dysuria or abdominal pain. The patient has no known coronary artery disease and no history of DVT. No history of either these in the family. Patient states that she is overweight but otherwise healthy. No history of diabetes, hypertension, or hyperlipidemia. No other complaints at this time. 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 She was examined at her workplace by her primary physician, and was found to have reproducible chest wall pain in her inferior sternal area. Patient states that when she gets the pains, did not last long enough for her to be able to tell what may make them better or worse. She states that She has not had any Covid exposures that she knows of. Review of Systems Ten Systems: 10 systems reviewed and negative Constitutional: reports: Fatigue Eyes: reports: Reviewed and negative Ears: reports: Reviewed and negative Nose: reports: Reviewed and negative Throat: reports: Reviewed and negative Cardiac: reports: Chest pain / pressure Respiratory: reports: Dyspnea (Not associated with chest pain.) GI: reports: Reviewed and negative. denies: Nausea : reports: Reviewed and negative Skin: reports: Reviewed and negative Musculoskeletal: reports: Reviewed and negative. 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 : None HEENT: Other Psych: Depression, Anxiety Musculoskeletal: Chronic back pain, Other Derm: None - Past Surgical History Past Surgical History: Yes General: Colonoscopy, EGD Ortho: Shoulder arthroplasty /BOILER TESTER: Tubal ligation, Hysterectomy - Present Medications Home Medications: Ambulatory Orders Medication Instructions Recorded Confirmed Cyclobenzaprine [Flexeril] 10 mg PO TID PRN #20 tablet 10/24/19 07/25/20 Azithromycin [Zithromax] 250 mg PO DAILY #4 tablet 07/25/20 Meclizine [Antivert] 25 mg PO Q6H PRN #20 tablet 07/25/20 - Allergies Allergies/Adverse Reactions: Allergies Allergy/AdvReac Type Severity Reaction Status Date / Time Penicillins Allergy Intermediate Hives Verified 10/14/20 09:59 - Social History Does the pt smoke?: Yes Smoking Status: Current every day smoker Does the pt drink ETOH?: Yes Does the pt have substance abuse?: Yes - Immunizations Immunizations are current?: Yes - POLST Patient has POLST: No PD ED PE NORMAL - Vitals Vital signs reviewed: Yes - General General: Alert and oriented X 3, No acute distress, Well developed/nourished - HEENT HEENT: Atraumatic, PERRL, EOMI, Moist mucous membranes - Neck Neck: Supple, no meningeal sign - Cardiac Cardiac: RRR, No murmur - Respiratory Respiratory: No respiratory distress, Clear bilaterally - Abdomen Abdomen: Soft, Non tender, Non distended - Derm Derm: Normal color, Warm and dry, No rash - Extremities Extremities: No deformity, No edema, No calf tenderness / cord - Neuro Neuro: Alert and oriented X 3, 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, No motor deficit, No sensory deficit, Normal speech - Psych Psych: Normal mood, Normal affect Results - Vitals Vitals: Vital Signs - 24 hr 10/14/20 10/14/20 10/14/20 09:55 11:48 12:56 Temperature 36.3 C L 36.7 C Heart Rate 62 58 L 85 Respiratory 20 16 20 Rate Blood Pressure 134/85 H 121/81 H 126/78 O2 Saturation 97 97 100 10/14/20 13:26 Temperature Heart Rate 64 Respiratory 19 Rate Blood Pressure 120/72 O2 Saturation 98 Oxygen O2 Source Room air - EKG (time done) 0950 Rate: Rate (enter#) (68) Rhythm: NSR Humphrey: Normal Intervals: Normal IA QRS: Normal Ischemia: Normal ST segments, T wave inversion (III) Compare to prior EKG: Old EKG unavailable Computer interpretation: Agree with computer - Labs Labs: Laboratory Tests 10/14/20 10/14/20 10/14/20 10:02 10:02 10:02 WBC 10.5 RBC 4.60 Hgb 13.1 Hct 40.7 MCV 88.5 MCH 28.5 MCHC 32.2 RDW 14.5 Plt Count 246 MPV 10.4 Neut # (Auto) 7.9 H Lymph # (Auto) 1.8 [place] # (Auto) 0.5 Eos # (Auto) 0.2 Baso # (Auto) 0.0 Absolute Nucleated RBC 0.00 Nucleated RBC % 0.0 D-Dimer Sodium 140 Potassium 4.2 Chloride 106 Carbon Dioxide 24 Anion Gap 10.0 BUN 19 Creatinine 0.5 Estimated GFR (MDRD) 140 Glucose 103 H Calcium 9.3 Total Bilirubin 0.3 AST 18 ALT 15 Alkaline Phosphatase 60 Troponin I High Sens < 2.3 L Total Protein 7.4 Albumin 4.0 Globulin 3.4 Albumin/Globulin Ratio 1.2 Lipase 30 10/14/20 10/14/20 10:50 12:32 WBC RBC Hgb Hct MCV MCH MCHC RDW Plt Count MPV Neut # (Auto) Lymph # (Auto) [place] # (Auto) Eos # (Auto) Baso # (Auto) Absolute Nucleated RBC Nucleated RBC % D-Dimer 213.3 Sodium Potassium Chloride Carbon Dioxide Anion Gap BUN Creatinine Estimated GFR (MDRD) Glucose Calcium Total Bilirubin AST ALT Alkaline Phosphatase Troponin I High Sens < 2.3 L Total Protein Albumin Globulin Albumin/Globulin Ratio Lipase - Rads (name of study) CXR Radiology: Final report received, EMP read indepedently, See rad report (neg) PD MEDICAL DECISION MAKING - ED course Complexity details: reviewed results, re-evaluated patient, considered differential, d/w patient ED course: The patient was not currently having chest pain while in the emergency department. I felt that overall she was low risk for coronary artery disease, but given her symptoms, I feel she should be worked up for potential emergent causes of chest pain. Initial set of labs showed a negative troponin as well as a normal D-dimer. Patient's white blood cell count was mildly elevated. Remainder of laboratory work-up is unremarkable, including the repeat troponin at 2 hours which was also negative. Patient's chest x-ray was unremarkable. EKG showed no signs of acute ischemia. The patient did develop a feeling of chills in the emergency department but was found to be afebrile with repeat temperature check. No emergent condition was found in the emergency department today. I discussed with the patient that it is not clear what has caused her symptoms, and that it would be a good idea for her to follow-up with a stress test in her doctor's office. Patient states that since she works there and is able to do scheduling, that she can schedule this for herself. For now, I have advised the patient to get rest at home for the rest of the day. We have discussed the usual indications for return. The patient develops a fever and cough, she will need to be reevaluated and I have recommended to her that she be tested for Covid if this becomes the case. Departure - Departure Disposition: 01 Home, Self Care Clinical Impression: Chest pain Qualifiers: Chest pain type: unspecified Qualified Code(s): R07.9 - Chest pain, unspecified Condition: Stable Instructions: ED Chest Pain Atypical Unkn Cause Comments: Your labs, EKG, and chest x-ray all look good. Repeat cardiac enzymes are negative, as were the first set. The D-dimer, the lab that we checked to assess for possible blood clot, is normal. It is not clear what is causing your chest pain, although it is fairly atypical. Please follow-up as we have discussed to get scheduled for a cardiac stress test to further evaluate for any underlying coronary artery disease. Please continue your plan to increase exercise and continue to lose weight. Forms: Activity restrictions Discharge Date/Time: 10/14/20 13:27
[2020-10-14 13:26] VITALS: BP 120/72
== END 2020-10-14 13:27 | disposition home or self-care (01) ==
LOC: ED 09:49
DX: R07.89 Other chest pain (principal); R42 Dizziness and giddiness; R53.83 Other fatigue; F17.200 Nicotine dependence, unspecified, uncomplicated
CPT/HCPCS: 36415; 80053; 83690; 84484; 85025; 85379; 93005; 96360; 99284

== ENCOUNTER 2020-12-16 19:20 | Emergency (ER) | payer MEDICAID ==
[2020-12-16 21:04] LABS: BILIRUBIN,URINE NEGATIVE (NEGATIVE); GLUCOSE, URINE (UA) NEGATIVE (NEGATIVE); KETONES,URINE (UA) NEGATIVE (NEGATIVE); LEUKOCYTE ESTERASE, URINE NEGATIVE (NEGATIVE); NITRITE,URINE NEGATIVE (NEGATIVE); OCCULT BLOOD,URINE NEGATIVE (NEGATIVE); PH,URINE 5.5 PH (5.0-7.5); PROTEIN,URINE NEGATIVE (NEGATIVE); UROBILINOGEN,URINE 0.2 (NORMAL) E.U./dL (NORMAL)
[2020-12-16 21:07] LABS: CLARITY,URINE CLEAR (CLEAR)
[2020-12-16 21:12] LABS: BACTERIA,URINE Rare /HPF (None Seen); RBC,URINE None Seen /HPF (0-5); SQUAMOUS EPITHELIAL CELL,UR MANY Squamous (<= Few); WBC,URINE 0-3 /HPF (0-5)
[2020-12-16 22:09] LABS: HCG UR QUAL NEGATIVE
--- NOTE | 2020-12-16 23:37 | ED Physician Documentation ---
PD HPI BACK PAIN - Stated complaint Stated Complaint: KIDNEY PX - Chief complaint Chief Complaint: Abd Pain - History obtained from History obtained from: Patient - History of Present Illness Timing - onset: How many days ago (few) Timing - duration: Days (few) Timing - details: Gradual onset (she had had flank pain and Dx UTI by office UA, and was on CIpro for a week by PMD. [place] better but is having flank pain again both sides for few days since being off the Cipro.), Still present Location: Mid, Right, Left Quality: Pain, Aching Associated symptoms: Other (noting some discomfort with urination and feeling of incomplete voiding.). No: Fever, Weakness, Numbness, Hematuria Worsened by: Movement, Twisting Contributing factors: No: Lifting, Twisting, Trauma Similar symptoms before: Diagnosis (UTIs) Recently seen: Clinic Review of Systems Constitutional: reports: Fatigue. denies: Fever, Chills, Myalgias Nose: denies: Rhinorrhea / runny nose, Congestion Throat: denies: Sore throat Cardiac: denies: Chest pain / pressure Respiratory: denies: Cough GI: reports: Nausea. denies: Abdominal Pain, Vomiting, Constipation, Diarrhea : reports: Frequency. 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 : None HEENT: Other Psych: Depression, Anxiety Musculoskeletal: Chronic back pain, Other Derm: None - Past Surgical History Past Surgical History: Yes General: Colonoscopy, EGD Ortho: Shoulder arthroplasty /OPERATIONS DEVELOPER: Tubal ligation, Hysterectomy - Present Medications Home Medications: Ambulatory Orders Medication Instructions Recorded Confirmed Cyclobenzaprine [Flexeril] 10 mg PO TID PRN #20 tablet 10/24/19 07/25/20 Azithromycin [Zithromax] 250 mg PO DAILY #4 tablet 07/25/20 Meclizine [Antivert] 25 mg PO Q6H PRN #20 tablet 07/25/20 Naproxen Sodium [Anaprox Ds] 550 mg PO BID #14 tablet 12/17/20 Sulfamethox/Trimeth 800/160 1 each PO BID #14 tablet 12/17/20 [Bactrim Ds 800/160] - Allergies Allergies/Adverse Reactions: Allergies Allergy/AdvReac Type Severity Reaction Status Date / Time Penicillins Allergy Intermediate Hives Verified 12/16/20 19:32 - Social History Does the pt smoke?: Yes Smoking Status: Current every day smoker Does the pt drink ETOH?: Yes Does the pt have substance abuse?: Yes - Immunizations Immunizations are current?: Yes - POLST Patient has POLST: No PD ED PE NORMAL - Vitals Vital signs reviewed: Yes - General General: Alert and oriented X 3, Well developed/nourished, Other (appears in pain) - Cardiac Cardiac: RRR, No murmur - Respiratory Respiratory: Clear bilaterally - Abdomen Abdomen: Normal bowel sounds, Soft, Non distended, No organomegaly, Other (some tenderness left mid abd. without guarding. ) - Back Back: No spinal TTP, Other (tender left and right flank areas, more to the left. ) - Derm Derm: Normal color, Warm and dry, No rash - Neuro Neuro: Alert and oriented X 3, No motor deficit, Normal speech Results - Vitals Vitals: Vital Signs - 24 hr 12/16/20 12/16/20 12/16/20 19:29 21:58 23:42 Temperature 36.4 C L 36.0 C L Heart Rate 86 72 70 Respiratory 14 20 18 Rate Blood Pressure 147/75 H 126/84 H 147/97 H O2 Saturation 98 99 100 12/17/20 02:20 Temperature 36.8 C Heart Rate 67 Respiratory 18 Rate Blood Pressure 118/73 O2 Saturation 98 Oxygen O2 Source Room air - Labs Labs: Laboratory Tests 12/16/20 12/16/20 12/17/20 20:45 20:45 00:13 WBC 11.1 H RBC 4.68 Hgb 13.1 Hct 41.4 MCV 88.5 MCH 28.0 MCHC 31.6 L RDW 14.6 Plt Count 253 MPV 10.2 Neut # (Auto) 6.7 H Lymph # (Auto) 3.5 [place] # (Auto) 0.5 Eos # (Auto) 0.3 Baso # (Auto) 0.0 Absolute Nucleated RBC 0.00 Nucleated RBC % 0.0 Sodium Potassium Chloride Carbon Dioxide Anion Gap BUN Creatinine Estimated GFR (MDRD) Glucose Calcium Total Bilirubin AST ALT Alkaline Phosphatase Total Protein Albumin Globulin Albumin/Globulin Ratio Lipase Urine Color YELLOW Urine Clarity CLEAR Urine pH 5.5 Ur Specific [place] >=1.030 H Urine Protein NEGATIVE Urine Glucose (UA) NEGATIVE Urine Ketones NEGATIVE Urine Occult Blood NEGATIVE Urine Nitrite NEGATIVE Urine Bilirubin NEGATIVE Urine Urobilinogen 0.2 (NORMAL) Ur Leukocyte Esterase NEGATIVE Urine RBC None Seen Urine WBC 0-3 Ur Squamous Epith Cells MANY Squamous H Urine Bacteria Rare Urine Culture Comments NOT INDICATED Urine HCG, Qual NEGATIVE 12/17/20 00:13 WBC RBC Hgb Hct MCV MCH MCHC RDW Plt Count MPV Neut # (Auto) Lymph # (Auto) [place] # (Auto) Eos # (Auto) Baso # (Auto) Absolute Nucleated RBC Nucleated RBC % Sodium 135 Potassium 3.6 Chloride 101 Carbon Dioxide 24 Anion Gap 10.0 BUN 15 Creatinine 0.7 Estimated GFR (MDRD) 95 Glucose 109 H Calcium 8.8 Total Bilirubin 0.5 AST 20 ALT 15 Alkaline Phosphatase 55 Total Protein 7.2 Albumin 4.2 Globulin 3.0 Albumin/Globulin Ratio 1.4 Lipase 54 H Urine Color Urine Clarity Urine pH Ur Specific [place] Urine Protein Urine Glucose (UA) Urine Ketones Urine Occult Blood Urine Nitrite Urine Bilirubin Urine Urobilinogen Ur Leukocyte Esterase Urine RBC Urine WBC Ur Squamous Epith Cells Urine Bacteria Urine Culture Comments Urine HCG, Qual - Rads (name of study) abd/pelvic CT Radiology: Prelim report reviewed (no kidney stones nor hydronephrosis. No other acute process. ), See rad report PD MEDICAL DECISION MAKING - ED course Complexity details: considered differential (no other finding for diagnosis, and had recent UTI with incomplete resolution of symptoms. So can treat for UTI even though UA is not clearly UTI (partially treated?).), d/w patient Departure - Departure Disposition: 01 Home, Self Care Clinical Impression: Flank pain, acute Condition: Stable Record reviewed to determine appropriate education?: Yes Instructions: ED Flank Pain Uncertain Cause Follow-Up: Enzo Vera MD [Primary Care Provider] - Prescriptions: Naproxen Sodium [Anaprox Ds] 550 mg PO BID #14 tablet Sulfamethox/Trimeth 800/160 [Bactrim Ds 800/160] 1 each PO BID #14 tablet Comments: Your urine test does not really look that bad here. Your CT scan and blood tests are normal. Without another explanation, your pain may be musculoskeletal or consider a recurrent urinary tract infection even though the urine does not look significantly so. Use anti-inflammatory such as naproxen twice daily with food. Bactrim antibiotic twice daily for a week for possibility of infection. Add your pain medicines at home as needed with Tylenol as an alternative if needed. You can use your Flexeril muscle relaxant at home as well. Heat and gentle stretching for the back. Recheck if not improved well over the next couple of days and return if worsening. Discharge Date/Time: 12/17/20 02:30
[2020-12-16] MEDS ORDERED: KETOROLAC 30 MG/ML VIAL IVP STA (23:51)
[2020-12-17 00:20] LABS: BASOPHILS % (AUTO) 0.4 %; EOSINOPHILS # (AUTO) 0.3 10^3/uL (0.0-0.7); EOSINOPHILS % (AUTO) 2.8 %; HCT - HEMATOCRIT 41.4 % (37.0-47.0); HGB - HEMOGLOBIN 13.1 g/dL (12.0-16.0); LYMPHOCYTES # (AUTO) 3.5 10^3/uL (1.5-3.5); LYMPHOCYTES % (AUTO) 31.2 %; MEAN CORPUSCULAR HGB CONC 31.6 g/dL (32.0-36.0); MEAN CORPUSCULAR VOLUME 88.5 fL (81.0-99.0); MEAN PLATELET VOLUME 10.2 fL (7.9-10.8); MONOCYTES # (AUTO) 0.5 10^3/uL (0.0-1.0); MONOCYTES % (AUTO) 4.7 %; NEUTROPHILS # (AUTO) 6.7 10^3/uL (1.5-6.6); NEUTROPHILS % (AUTO) 60.6 %; PLT - PLATELET COUNT 253 10^3/uL (130-450); RED BLOOD COUNT 4.68 10^6/uL (4.20-5.40); RED CELL DISTRIBUTION WIDTH 14.6 % (12.0-15.0); WHITE BLOOD COUNT 11.1 x10^3/uL (4.8-10.8)
[2020-12-17 00:31] LABS: ALBUMIN 4.2 g/dL (3.2-5.5); ALBUMIN/GLOBULIN RATIO 1.4 (1.0-2.2); BILIRUBIN,TOTAL 0.5 mg/dL (0.2-1.0); CALCIUM 8.8 mg/dL (8.5-10.3); CREATININE 0.7 mg/dL (0.4-1.0); POTASSIUM 3.6 mmol/L (3.5-5.0); TOTAL PROTEIN 7.2 g/dL (6.7-8.2)
[2020-12-17] MEDS ORDERED: IOPAMIDOL-300 100 ML VIAL ONE (00:50)
[2020-12-17] MEDS ORDERED: IOPAMIDOL-300 100 ML VIAL IVP ONE (01:49)
[2020-12-17] MEDS ORDERED: SULFAMETH/TRIMETH DS 800/160 MG TABLET PO STA (02:11)
[2020-12-17 02:20] VITALS: BP 118/73
--- NOTE | 2020-12-17 08:35 | CT Report ---
PROCEDURE: Abdomen/Pelvis W INDICATIONS: bilateral flank pain and upper abd pain CONTRAST: IV CONTRAST: Isovue 300 ml: 100 PO CONTRAST: *NO PO CONTRAST TECHNIQUE: After the administration of intravenous contrast, 5 mm thick sections acquired from the diaphragms to the symphysis. 5 mm thick coronal and sagittal reformats were acquired. For radiation dose reducti on, the following was used: automated exposure control, adjustment of mA and/or kV according to sparkle ent size. COMPARISON: CT abdomen pelvis 04/18/2013 FINDINGS: Image quality: Excellent. ABDOMEN: Lung bases: Lung bases are clear. Heart size is normal. Solid organs: Liver is mildly enlarged with steatosis. Spleen is normal in size. Gallbladder is unr emarkable Biliary system is non dilated. Pancreas enhances normally. No adrenal nodules. Kidneys demonstrate normal size and enhancement, without hydronephrosis. No visualized stones. Peritoneum and bowel: Bowel loops demonstrate normal wall thickness and caliber. No free fluid or a ir. Nodes and vessels: No retroperitoneal or mesenteric adenopathy by size criteria. Aorta and inferior vena cava are normal in size. Miscellaneous: Fat-containing ventral hernia is present.. PELVIS: Genitourinary: Bladder wall thickness is normal. Miscellaneous: No inguinal hernias or adenopathy. Bones: No suspicious bony lesions. No vertebral body compression fractures. IMPRESSION: 1. Unremarkable exam. No acute process within the abdomen and pelvis. The above findings are concordant with preliminary report. Reviewed by: Erin Mckinley MD on 12/17/2020 8:34 AM PDT Approved by: Erin Mckinley MD on 12/17/2020 8:34 AM PDT Station ID: [id number]
--- NOTE | 2020-12-17 14:56 | ED Physician Documentation ---
ED Addendum - Addendum Addendum: 12/17/20 14:55 Received a phone call from [facility] pharmacy, the patient is taking methotrexate and so Bactrim is contraindicated. Will change to cefdinir 300 mg p.o. twice daily x7 days.
== END 2020-12-17 02:30 | disposition home or self-care (01) ==
LOC: ED 19:20
DX: R10.9 Unspecified abdominal pain (principal); F17.200 Nicotine dependence, unspecified, uncomplicated
CPT/HCPCS: 36415; 74177; 80053; 81001; 81025; 83690; 85025; 96374; 99284; A9270; Q9967; 87086

== ENCOUNTER 2021-02-17 15:50 | Emergency (ER) | payer MEDICAID ==
--- NOTE | 2021-02-17 16:26 | XRAY Report ---
PROCEDURE: Foot 3 View LT INDICATIONS: Trauma TECHNIQUE: 3 views of the foot were acquired. COMPARISON: 03/18/2020 left foot plain films reviewed. FINDINGS: Bones: No fractures or dislocations. No suspicious bony lesions. Soft tissues: No tibiotalar joint effusion. Achilles tendon appears normal. IMPRESSION: No trauma found. Reviewed by: Bridger Diehl MD on 02/17/2021 4:24 PM PDT Approved by: Bridger Diehl MD on 02/17/2021 4:24 PM PDT Station ID: [id number]
[2021-02-17] MEDS ORDERED: KETOROLAC 15 MG/ML VIAL IM STA (17:43)
--- NOTE | 2021-02-17 17:46 | ED Physician Documentation ---
History of Present Illness - Stated complaint Stated Complaint: LEFT FOOT INJURY - Chief complaint Chief Complaint: Ext Problem - History obtained from History obtained from: Patient - Additonal information Additional information: 36-year-old woman Presents with left ankle pain after tripping over a dog lead yesterday. She was able to bear her weight immediately but had significant pain with weightbearing that progressively worsened over the course of the day and then had some swelling and pain upon waking this morning. 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 HEENT: Other Psych: Depression, Anxiety Musculoskeletal: Chronic back pain, Other Derm: None - Past Surgical History Past Surgical History: Yes General: Colonoscopy, EGD Ortho: Shoulder arthroplasty /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: Tubal ligation, Hysterectomy - Present Medications Home Medications: Ambulatory Orders Medication Instructions Recorded Confirmed Cyclobenzaprine [Flexeril] 10 mg PO TID PRN #20 tablet 10/24/19 07/25/20 Azithromycin [Zithromax] 250 mg PO DAILY #4 tablet 07/25/20 Meclizine [Antivert] 25 mg PO Q6H PRN #20 tablet 07/25/20 Naproxen Sodium [Anaprox Ds] 550 mg PO BID #14 tablet 12/17/20 Sulfamethox/Trimeth 800/160 1 each PO BID #14 tablet 12/17/20 [Bactrim Ds 800/160] - Allergies Allergies/Adverse Reactions: Allergies Allergy/AdvReac Type Severity Reaction Status Date / Time Penicillins Allergy Intermediate Hives Verified 02/17/21 15:54 - Social History Does the pt smoke?: Yes Smoking Status: Current every day smoker Does the pt drink ETOH?: Yes Does the pt have substance abuse?: Yes - Immunizations Immunizations are current?: Yes - POLST Patient has POLST: No PD ED PE NORMAL - Vitals Vital signs reviewed: Yes - General General: Alert and oriented X 3, No acute distress, Well developed/nourished - HEENT HEENT: Atraumatic, PERRL, EOMI - Neck Neck: Supple, no meningeal sign - Derm Derm: Normal color, Warm and dry - Extremities Extremities: No deformity, Other (Tender with range of motion of the left ankle. 2+ DP and PT pulses. Normal sensation and capillary refill) Results - Vitals Vitals: Vital Signs - 24 hr 02/17/21 15:54 Temperature 36.6 C Heart Rate 73 Respiratory 16 Rate Blood Pressure 127/75 O2 Saturation 99 Oxygen O2 Source Room air PD MEDICAL DECISION MAKING - ED course ED course: 36-year-old woman presented with left ankle sprain without apparent fracture on x-ray. Return precautions given. Conservative measures discussed. She will follow up with her primary doctor and with orthopedics as needed. Magdy and crutches given. Impression 1 ankle sprain Departure - Departure Disposition: 01 Home, Self Care Condition: Good Instructions: ED RICE Follow-Up: Matt Sue MD [Provider Admit Priv/Credential] - Comments: You were seen in the emergency department for an ankle sprain. You do not have a break in the bone on x-ray. Please wear crutches and weight-bear only as tolerated. Return to the emergency department if you have any new or worsening symptoms or other concerns. Forms: Activity restrictions
[2021-02-17 18:29] VITALS: BP 120/72
== END 2021-02-17 18:28 | disposition home or self-care (01) ==
LOC: ED 15:50
DX: S93.402A Sprain of unspecified ligament of left ankle, initial encounter (principal); W01.0XXA Fall on same level from slipping, tripping and stumbling without subsequent striking against object, initial encounter; F17.200 Nicotine dependence, unspecified, uncomplicated
CPT/HCPCS: 96372; 99282; 99283

== ENCOUNTER 2021-05-06 12:26 | Emergency (ER) | payer MEDICAID ==
[2021-05-06 12:39] VITALS: BP 124/82
--- NOTE | 2021-05-06 12:56 | ED Physician Documentation ---
History of Present Illness - Stated complaint Stated Complaint: FACE SWELLING - Chief complaint Chief Complaint: Heent - History obtained from History obtained from: Patient - Additonal information Additional information: 36 yo F presented with right lower dental abscess. She states she was seen by dentist about a week ago and started on keflex and clinda for dental pain but no swelling at that time. She followed up with another dentist a couple days later who subsequently took her off the clinda. She had ongoing pain and then developed some right facial swelling yesterday and went back to the dentist who then put her on a higher dose of clinda 30mg q8 hrs as well as ibuprofen and norco. She presents today with ongoing right facial pain and swelling and states she also has a sore throat. NO fever or chills but reports sweating at times. She is taking meds as prescribed. She states she is not scheduled for dental extraction for 2 months but will try to get in sooner. Review of Systems Constitutional: reports: Reviewed and negative Eyes: reports: Reviewed and negative Ears: reports: Reviewed and negative Nose: reports: Reviewed and negative Throat: reports: Dental pain / toothache, Sore throat. 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 : None HEENT: Other Psych: Depression, Anxiety Musculoskeletal: Chronic back pain, Other Derm: None - Past Surgical History Past Surgical History: Yes General: Colonoscopy, EGD Ortho: Shoulder arthroplasty /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: Tubal ligation, Hysterectomy - Present Medications Home Medications: Ambulatory Orders Medication Instructions Recorded Confirmed Cyclobenzaprine [Flexeril] 10 mg PO TID PRN #20 tablet 10/24/19 07/25/20 Azithromycin [Zithromax] 250 mg PO DAILY #4 tablet 07/25/20 Meclizine [Antivert] 25 mg PO Q6H PRN #20 tablet 07/25/20 Naproxen Sodium [Anaprox Ds] 550 mg PO BID #14 tablet 12/17/20 Sulfamethox/Trimeth 800/160 1 each PO BID #14 tablet 12/17/20 [Bactrim Ds 800/160] - Allergies Allergies/Adverse Reactions: Allergies Allergy/AdvReac Type Severity Reaction Status Date / Time Penicillins Allergy Intermediate Hives Verified 05/06/21 12:39 - Social History Does the pt smoke?: Yes Smoking Status: Current every day smoker Does the pt drink ETOH?: Yes Does the pt have substance abuse?: Yes - Immunizations Immunizations are current?: Yes - POLST Patient has POLST: No PD ED PE NORMAL - Vitals Vital signs reviewed: Yes - General General: Alert and oriented X 3, No acute distress, Well developed/nourished - HEENT HEENT: Atraumatic, PERRL, EOMI, Ears normal, Moist mucous membranes, Pharynx benign, Other (poor dentition w/ broken right lower molar and some mild surrounding swelling, no facial erythema. ). No: Dentition benign (Poor dentition w/ right lower molar abscess) - Neck Neck: Supple, no meningeal sign, No adenopathy, No JVD - Cardiac Cardiac: RRR, No murmur - Respiratory Respiratory: No respiratory distress, Clear bilaterally - Abdomen Abdomen: Normal bowel sounds, Soft, Non tender, Non distended, No organomegaly - Derm Derm: Normal color, Warm and dry, No rash - Neuro Neuro: Alert and oriented X 3 Eye Opening: Spontaneous Motor: Obeys Commands Verbal: Oriented GCS Score: 15 - Psych Psych: Normal mood, Normal affect Results - Vitals Vitals: Vital Signs - 24 hr 05/06/21 12:35 Temperature 37.2 C Heart Rate 122 H Respiratory 16 Rate Blood Pressure 124/82 H O2 Saturation 99 Oxygen O2 Source Room air PD MEDICAL DECISION MAKING - ED course Complexity details: d/w patient ED course: Pt presented w/ right lower molar dental abscess. She has no signs of facial cellulitis and is afebrile. Abscess localized to right jaw, does not appear to extend into neck space. She is on appropriate antibiotic treatment and pain medication at this time. I offered I&D of the abscess and explained the procedure to the patient and she refused. I therefore advised her to continue antibiotic treatment and warm compress and light massage to the right cheek along with salt water gargle and prn ibu/tylenol or norco. She will ultimately need dental extraction and will follow up with the dentist regularly. Return precautions reviewed in detail w/ pt including following up if she develops a fever, weakness, increased facial swelling, facial erythema, or other new concerns. Departure - Departure Disposition: 01 Home, Self Care Clinical Impression: Pain due to dental caries Condition: Good Instructions: ED Tooth Pain Comments: Please continue antibiotics prescribed by your dentist and continue ibuprofen and hydrocodone as needed. Use warm compress on the area to help with pain. Return in 2-3 days if no improvement or if you develop a fever, facial redness, or other new concerns. Forms: Activity restrictions
== END 2021-05-06 13:21 | disposition home or self-care (01) ==
LOC: ED 12:26
DX: K02.9 Dental caries, unspecified (principal); K04.7 Periapical abscess without sinus; F17.200 Nicotine dependence, unspecified, uncomplicated
CPT/HCPCS: 99282

== ENCOUNTER 2022-01-28 20:09 | Outpatient (CLI) | payer MEDICAID ==
--- NOTE | 2022-01-29 13:10 | Ultrasound Report ---
PROCEDURE: Pelvic w/Transvaginal INDICATIONS: ENDOMETRIAL INTRAEPITHELIAL NEOPLASIA TECHNIQUE: Real-time scanning was performed of the pelvic organs, with image documentation. Additional endovagi nal scanning was necessary due to incomplete visualization of the adnexal and endometrial structures by transabdominal scanning. COMPARISON: Pelvic ultrasound dated 11/25/2019, CT abdomen and pelvis dated 12/16/2020. FINDINGS: No pathologic free abdominal or pelvic fluid. Uterus: Uterus is normal in size at 9.2 x 4.6 x 5.8 cm. The endometrium measures 13.6 mm in combine d thickness. Question 8 x 6 mm endometrial polyp. Ovaries: Right ovary measures 3.1 x 2.2 x 2.7 cm, and left ovary measures 3.4 x 1.5 x 4.2 cm. Right ovarian volume is 9.49 mL. Left ovarian volume is 10.98 mm IMPRESSION: Question 8 x 6 mm endometrial polyp. Reviewed by: Jacques Almeida MD on 01/29/2022 1:09 PM PDT Approved by: Jacques Almeida MD on 01/29/2022 1:09 PM PDT Station ID: [id number]
== END 2022-01-28 20:10 | disposition home or self-care (01) ==
LOC: DI 20:09
PROVIDERS: ATTEND Family Medicine
DX: N85.02 Endometrial intraepithelial neoplasia [EIN] (principal)

== ENCOUNTER 2022-11-29 09:58 | Outpatient (CLI) | payer MEDICAID ==
--- NOTE | 2022-11-29 18:01 | XRAY Report ---
PROCEDURE: Abdomen 1 View X-Ray INDICATIONS: ABD PAIN TECHNIQUE: One view of the abdomen acquired. COMPARISON: Correlation is made with prior CT, 12/17/2020 FINDINGS: Surgical changes and devices: None. Bowel: Bowel gas pattern is normal. Soft tissues: No suspicious abdominal calcifications. Visualized solid organ contours appear normal in size. Bones: No suspicious bony lesions. IMPRESSION: There is a nonobstructive bowel gas pattern seen. If the symptoms persist or worsen, please consider a dedicated follow-up CT for further evaluation. Reviewed by: Austyn Vázquez MD on 11/29/2022 5:00 PM VERENICE Approved by: Austyn Vázquez MD on 11/29/2022 5:00 PM VERENICE Station ID: [id number]
== END 2022-11-29 09:59 | disposition home or self-care (01) ==
LOC: DI 09:58
PROVIDERS: ATTEND Family Medicine
DX: M54.50 Low back pain, unspecified (principal); N39.0 Urinary tract infection, site not specified; R10.9 Unspecified abdominal pain

== ENCOUNTER 2023-02-14 11:22 | Emergency (ER) | payer MEDICAID ==
[2023-02-14 14:14] VITALS: BP 129/77
[2023-02-14] MEDS ORDERED: CHERRY SYRUP 10 ML UDC PO ONE (15:15)
[2023-02-14] MEDS ORDERED: DEXAMETHASONE 10 MG/ML VIAL PO STA (15:15)
[2023-02-14] MEDS ORDERED: KETOROLAC 60 MG/2 ML VIAL IM STA (15:15)
[2023-02-14 15:42] LABS: RAPID STREP SCREEN Negative (Negative)
[2023-02-14 15:43] LABS: INFECTIOUS MONONUCLEOSIS NEGATIVE (Negative)
--- NOTE | 2023-02-14 16:01 | ED Physician Documentation ---
PD ENG HEENT - Stated complaint Stated Complaint: Ear pain left - Chief complaint Chief Complaint: Heent - Additional information Additional information: Patient comes to the emergency department chief complaint of left ear pain. She states that she has been in the process of being treated for pneumonia with Keflex for the last 3 weeks and that she still has a productive cough, sore throat, and now, left ear pain. 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 She did not have a strep test at any point. She states that she just does not feel like she is gotten any better. She states she has been running temperatures up to 102. 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: Tubal ligation, Hysterectomy - Present Medications Home Medications: Ambulatory Orders Medication Instructions Recorded Confirmed Cyclobenzaprine [Flexeril] 10 mg PO TID PRN #20 tablet 10/24/19 02/14/23 ALPRAZolam [Xanax] 0.25 mg PO TID PRN 02/04/22 02/14/23 HYDROcodone/ACET 7.5/325 [[place] 1 each PO Q4HR PRN 02/04/22 02/14/23 7.5/325] Azithromycin [Zithromax] 0 mg PO DAILY #6 tablet 02/14/23 Citalopram Hydrobromide [Celexa] 20 mg ORAL DAILY 02/14/23 02/14/23 HYDROcod/ACETAM 5/325 [[place] 5/325] 1 - 2 tablet PO Q6H PRN #10 tablet 02/14/23 - Allergies Allergies/Adverse Reactions: Allergies Allergy/AdvReac Type Severity Reaction Status Date / Time Penicillins Allergy Intermediate Hives Verified 02/14/23 12:01 - Social History Does the pt smoke?: Yes Smoking Status: Current every day smoker Does the pt drink ETOH?: Yes Does the pt have substance abuse?: Yes - Immunizations Immunizations are current?: Yes - POLST Patient has POLST: No PD ED PE NORMAL - Vitals Vital signs reviewed: Yes - General General: Alert and oriented X 3, No acute distress, Well developed/nourished - HEENT HEENT: Atraumatic, PERRL, EOMI, Moist mucous membranes, Other (Right TM normal; left TM bulging, dull, erythematous; Tonsils 3+, erythematous, with exudates bilaterally. No asymmetry.) - Neck Neck: Supple, no meningeal sign - Cardiac Cardiac: RRR, No murmur - Respiratory Respiratory: No respiratory distress, Clear bilaterally - Derm Derm: Warm and dry - Extremities Extremities: No deformity - Neuro Neuro: Alert and oriented X 3 - Psych Psych: Normal mood, Normal affect Results - Vitals Vitals: Vital Signs - 24 hr 02/14/23 02/14/23 12:01 14:13 Temperature 36.2 C L 37 C Heart Rate 88 81 Respiratory 18 18 Rate Blood Pressure 133/84 H 129/77 O2 Saturation 98 100 Oxygen O2 Source Room air - Labs Labs: Laboratory Tests 02/14/23 02/14/23 15:24 15:30 Infectious [place] Assay NEGATIVE Group A Strep Rapid Negative PD Medical Decision Making - ED course Complexity details: reviewed results, re-evaluated patient, considered differential, d/w patient ED course: I discussed with the patient that she does have an exudative tonsillitis and given that her symptoms of been ongoing and unresponsive to the Keflex, it is possible that she has mononucleosis. I will also test her for strep. Patient has been tested for both of these and both test are negative. The patient is allergic to penicillins so I will start her on azithromycin for her ear, which should also cover the possibility of strep pharyngitis of another subgroup and any bronchitis. Prescriptions have been sent to the pharmacy of patient's choice. Departure - Departure Disposition: 01 Home, Self Care Clinical Impression: Exudative pharyngitis Otitis media Qualifiers: Otitis media type: suppurative Chronicity: acute Laterality: left Recurrence: non-recurrent Spontaneous tympanic membrane rupture: without spontaneous rupture Qualified Code(s): H66.002 - Acute suppurative otitis media without spontaneous rupture of ear drum, left ear Instructions: ED Otitis Media Acute Adult, ED Strep Pharyngitis Poss Prescriptions: HYDROcod/ACETAM 5/325 [[place] 5/325] 1 - 2 tablet PO Q6H PRN #10 tablet PRN Reason: Pain Azithromycin [Zithromax] 0 mg PO DAILY #6 tablet Comments: Your strep and monotest were negative. It is still possible that you have a bacterial infection in your throat, as your throat culture may still come back positive tomorrow. You also have a left-sided ear infection. You will be started on antibiotics that do not interfere with your allergy to penicillin. These antibiotics will cover all of your infectious concerns including ear, the throat, and the productive cough. If this does not resolve your symptoms, then your symptoms are most likely viral in nature and will just need time to go away. A prescription for the antibiotic and for the pain medicine has been electronically transmitted to the [facility] pharmacy in [place]. Please pick these up this evening if possible. If not, pick them up in the morning. Discharge Date/Time: 02/14/23 16:05
== END 2023-02-14 16:05 | disposition home or self-care (01) ==
LOC: ED 11:22
DX: H66.002 Acute suppurative otitis media without spontaneous rupture of ear drum, left ear (principal); J02.9 Acute pharyngitis, unspecified; F17.200 Nicotine dependence, unspecified, uncomplicated
CPT/HCPCS: 36415; 86308; 87070; 87430; 96372; 99283; A9270

== ENCOUNTER 2023-10-22 17:52 | Outpatient (CLI) | payer MEDICAID ==
--- NOTE | 2023-10-23 20:48 | XRAY Report ---
PROCEDURE: Shoulder 2+V RT INDICATIONS: RIGHT SHOULDER PAIN TECHNIQUE: 3 views of the shoulder were acquired. COMPARISON: None. FINDINGS: Bones: No fractures or dislocations. Normal glenohumeral alignment. Acromioclavicular and coracoclav icular intervals are maintained. No suspicious bony lesions. Visualized ribs appear intact. Soft tissues: No suspicious soft tissue calcifications. The visualized lungs are within normal limi ts. IMPRESSION: No acute bony abnormality. If pain persists with conservative management, consider repeat radiographs in 10-14 days or cross-sectional imaging. Reviewed by: Binh Walters MD on 10/23/2023 8:47 PM PST Approved by: Binh Walters MD on 10/23/2023 8:47 PM PST Station ID: [id number]
--- NOTE | 2023-10-23 20:48 | XRAY Report ---
PROCEDURE: Thoracic Spine 3V INDICATIONS: THORACIC SPINE PAIN TECHNIQUE: 2 views of the thoracic spine were acquired. COMPARISON: Chest radiograph on October 14, 2020. FINDINGS: Bones: No fractures or dislocations. No suspicious bony lesions. 12 pairs of ribs are noted, and a ppear intact where visualized. Mild multilevel degenerative changes with osteophytosis and disc heig ht loss. Soft tissues: No paravertebral stripe thickening. Visualized lungs are clear. IMPRESSION: 1.No acute bony abnormality. 2.Mild multilevel degenerative changes of the spine. Reviewed by: Binh Walters MD on 10/23/2023 8:47 PM PST Approved by: Binh Walters MD on 10/23/2023 8:47 PM PST Station ID: [id number]
== END 2023-10-22 17:53 | disposition home or self-care (01) ==
LOC: DI 17:52
PROVIDERS: ATTEND Family Medicine
DX: M25.511 Pain in right shoulder (principal); M47.814 Spondylosis without myelopathy or radiculopathy, thoracic region

== ENCOUNTER 2023-11-03 16:17 | Outpatient (CLI) | payer MEDICAID ==
--- NOTE | 2023-11-03 16:56 | CT Report ---
PROCEDURE: Upper Extremity RT WO INDICATIONS: RIGHT SHOULDER PAIN TECHNIQUE: Noncontrast 2 mm axial sections were acquired through the elbow joint, with coronal and sagittal refo rmats. For radiation dose reduction, the following was used: automated exposure control, adjustment of mA and/or kV according to patient size. COMPARISON: Right shoulder radiograph dated 10/22/2023. FINDINGS: Image quality: Excellent. Bones: Postsurgical changes are noted in anterior humeral head with surgical screw tract seen likely represent prior rotator cuff tendon repair. Mild acromioclavicular joint osteoarthritis is seen with joint space narrowing and subchondral sclerosis. No acute fracture or dislocation. No suspicious bony lesion. The visualized right upper ribs are intact. Soft tissues: There is no full-thickness rotator cuff tendon rupture. Sagittal views shows no signif icant rotator cuff muscle atrophy. No significant joint effusion or subacromial subdeltoid bursal flu id. No calcified intra-articular loose bodies. No abnormal soft tissue calcifications. IMPRESSION: 1. No acute right shoulder fracture or dislocation. 2. Postsurgical changes in right humeral head suggestive of prior rotator cuff tendon repair. Mild ac romioclavicular joint osteoarthritis. 3. No gross full-thickness rotator cuff tendon rupture. No significant rotator cuff muscle atrophy. N o abnormal soft tissue calcifications or calcified intra-articular loose bodies. Reviewed by: Adolph Galarza MD on 11/03/2023 4:55 PM PDT Approved by: Adolph Galarza MD on 11/03/2023 4:55 PM PDT Station ID: [id number]
--- NOTE | 2023-11-03 16:58 | CT Report ---
PROCEDURE: Thoracic Spine WO INDICATIONS: THORACIC BACK PAIN TECHNIQUE: Noncontrast 3 mm thick sections acquired through the region of interest in the thoracic spine. Sagit reji and coronal reformats were then constructed. For radiation dose reduction, the following was used : automated exposure control, adjustment of mA and/or kV according to patient size. COMPARISON: None. FINDINGS: Image quality: Excellent. Bones: There is normal overall bony alignment. No acute vertebral body compression fractures. Mild degenerative endplate changes and vacuum disc phenomenon in mid to lower thoracic spine is seen. No suspicious sclerotic or lytic bony lesions. Central spinal canal is of normal overall caliber. Soft tissues: No paravertebral masses or hematomas. Visualized posteromedial lungs appear clear. IMPRESSION: 1. No acute thoracic spine fracture or dislocation. 2. Mild degenerative disc disease in mid to lower thoracic spine. 3. No gross paraspinous soft tissue abnormalities. Reviewed by: Adolph Galarza MD on 11/03/2023 4:57 PM PDT Approved by: Adolph Galarza MD on 11/03/2023 4:57 PM PDT Station ID: [id number]
== END 2023-11-03 16:18 | disposition home or self-care (01) ==
LOC: DI 16:17
PROVIDERS: ATTEND Family Medicine
DX: M51.34 Other intervertebral disc degeneration, thoracic region (principal); M19.011 Primary osteoarthritis, right shoulder

== ENCOUNTER 2023-12-29 11:40 | Emergency (ER) | payer MEDICAID ==
--- NOTE | 2023-12-29 12:32 | ED Physician Documentation ---
History of Present Illness - Stated complaint Stated Complaint: LT SIDE FACE SWELLING - Chief complaint Chief Complaint: Heent - History obtained from History obtained from: Patient - Additonal information Additional information: 34 nor should you about a week ago she started Wellbutrin and several days later the left side of her face swelled up. She thought it might be related to Wellbutrin and stopped it and has been taking Benadryl with no relief. About a month and a half ago she had an appointment to get a tooth on that side extracted but missed it. 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, Hysterectomy - Present Medications Home Medications: Ambulatory Orders Medication Instructions Recorded Confirmed Cyclobenzaprine [Flexeril] 10 mg PO TID PRN #20 tablet 10/24/19 02/14/23 ALPRAZolam [Xanax] 0.25 mg PO TID PRN 02/04/22 02/14/23 HYDROcodone/ACET 7.5/325 [[place] 1 each PO Q4HR PRN 02/04/22 02/14/23 7.5/325] Azithromycin [Zithromax] 0 mg PO DAILY #6 tablet 02/14/23 Citalopram Hydrobromide [Celexa] 20 mg ORAL DAILY 02/14/23 02/14/23 HYDROcod/ACETAM 5/325 [[place] 5/325] 1 - 2 tablet PO Q6H PRN #10 tablet 02/14/23 Oxycodone HCl/Acetaminophen 1 - 2 each PO Q6H PRN #14 tablet 12/29/23 [Percocet 5-325 mg Tablet] clindamycin HCL [Cleocin HCl] 300 mg PO QID #28 cap 12/29/23 - Allergies Allergies/Adverse Reactions: Allergies Allergy/AdvReac Type Severity Reaction Status Date / Time Penicillins Allergy Intermediate Hives Verified 12/29/23 11:46 - Social History Does the pt smoke?: Yes Smoking Status: Current every day smoker Does the pt drink ETOH?: Yes Does the pt have substance abuse?: Yes - Immunizations Immunizations are current?: Yes - POLST Patient has POLST: No PD ED PE NORMAL - Vitals Vital signs reviewed: Yes - General General: Alert and oriented X 3, No acute distress - HEENT HEENT: PERRL, EOMI, Other (She has very significant swelling of the left face from the infraorbital area and even the lower lid down to the angle of the mandible. She is generally poor dentition with many missing teeth and a large cavity on the left maxillary premolar with tenderness. 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 Results - Vitals Vitals: Vital Signs - 24 hr 12/29/23 12/29/23 12/29/23 11:46 11:49 14:31 Temperature 36.8 C Heart Rate 100 86 87 Respiratory 16 16 16 Rate Blood Pressure 145/100 H 140/99 H 125/87 H O2 Saturation 98 99 97 Oxygen O2 Source Room air - Labs Labs: Laboratory Tests 12/29/23 12/29/23 12:30 12:30 WBC 10.1 RBC 4.90 Hgb 15.6 Hct 46.2 MCV 94.3 MCH 31.8 H MCHC 33.8 RDW 12.7 Plt Count 249 MPV 9.7 Neut # (Auto) 6.9 H Lymph # (Auto) 2.3 Calvert # (Auto) 0.5 Eos # (Auto) 0.3 Baso # (Auto) 0.0 Absolute Nucleated RBC 0.00 Nucleated RBC % 0.0 Sodium 135 Potassium 3.8 Chloride 103 Carbon Dioxide 26 Anion Gap 6.0 BUN 10 Creatinine 0.5 L Estimated GFR (MDRD) 137 Glucose 95 Calcium 9.3 - Rads (name of study) maxface ct Relevant Findings:: Final report received, EMP independent interpretation of test PD Medical Decision Making - ED course ED course: She presents with pretty significant facial cellulitis likely from a dental source. CT done to rule out abscess, there was none. CBC and BMP are unremarkable. Pain was controlled with 2 doses of Dilaudid and 1 dose of Toradol and she was administered a high-dose infusion of clindamycin here. Given close return precautions and discussed follow-up with dentistry. Departure - Departure Disposition: 01 Home, Self Care Clinical Impression: Facial cellulitis Condition: Good Record reviewed to determine appropriate education?: Yes Instructions: ED Cellulitis Facial Prescriptions: clindamycin HCL [Cleocin HCl] 300 mg PO QID #28 cap Oxycodone HCl/Acetaminophen [Percocet 5-325 mg Tablet] 1 - 2 each PO Q6H PRN #14 tablet PRN Reason: pain Comments: I sent your prescription electronically to [facility] in [place]. It is very important that you follow-up with a dentist. When it comes to dental problems like yours, the emergency department can only offer a short-term solution to your long-term problem. A couple of low cost options for dental care include: [facility] in [place], calls [phone] for an appointment Or [facility] in [place], call [phone] for an appointment. I am prescribing a short course of narcotic pain medication for you. These are potentially dangerous and addictive medications that should be used carefully. These medications may constipate you. Take an [id number] stool softener (docusate) twice daily with plenty of water while taking these medications. If you go 24 hours without a bowel movement, take [id number] miralax, per package instructions. Do not drink or drive while taking these medications. If you received narcotic or sedating medications while in the emergency department, do not drive for 24 hours. Store this medication in a safe, secure place and out of reach of children. It is a violation of federal law to give or sell this medication to another person or to use in a manner other than prescribed. The ED will not refill narcotic prescriptions, including prescriptions lost or stolen. To dispose of unwanted medications: 1. [facility] provides a drop box for medication in pill form only (no liquids) 8:00 am to 4:30 p.m. Wednesday-Wednesday in the lobby of the [facility], [address] [place] [address]. Empty pills into ziplock bag before disposal. Call [phone] for information. 2.[employer] is a free service available to all [facility] residents. Go to [email or web address]/ Note that many narcotic pain relievers also contain Tylenol/acetaminophen. Please ensure that your total dose of acetaminophen from all sources does not exceed 3 g (3000 mg) per day. Forms: PCP List, Activity restrictions
[2023-12-29] MEDS: KETOROLAC 15 MG/ML VIAL IVP STA (12:51)
[2023-12-29 12:53] LABS: BASOPHILS % (AUTO) 0.4 %; EOSINOPHILS # (AUTO) 0.3 10^3/uL (0.0-0.7); EOSINOPHILS % (AUTO) 3.1 %; HCT - HEMATOCRIT 46.2 % (37.0-47.0); HGB - HEMOGLOBIN 15.6 g/dL (12.0-16.0); LYMPHOCYTES # (AUTO) 2.3 10^3/uL (1.5-3.5); LYMPHOCYTES % (AUTO) 23.1 %; MEAN CORPUSCULAR HEMOGLOBIN 31.8 pg (27.0-31.0); MEAN CORPUSCULAR HGB CONC 33.8 g/dL (32.0-36.0); MEAN CORPUSCULAR VOLUME 94.3 fL (81.0-99.0); MEAN PLATELET VOLUME 9.7 fL (7.9-10.8); MONOCYTES # (AUTO) 0.5 10^3/uL (0.0-1.0); MONOCYTES % (AUTO) 4.8 %; NEUTROPHILS # (AUTO) 6.9 10^3/uL (1.5-6.6); NEUTROPHILS % (AUTO) 68.3 %; PLT - PLATELET COUNT 249 10^3/uL (130-450); RED CELL DISTRIBUTION WIDTH 12.7 % (12.0-15.0); WHITE BLOOD COUNT 10.1 x10^3/uL (4.8-10.8)
[2023-12-29] MEDS: HYDROmorphone 1 MG/ML CARPUJECT IVP STA ×2 (12:54→14:26)
[2023-12-29] MEDS ORDERED: iohexoL-300 100 ML VIAL ONE (12:58)
[2023-12-29 13:06] LABS: CALCIUM 9.3 mg/dL (8.5-10.3); CREATININE 0.5 mg/dL (0.6-1.3); POTASSIUM 3.8 mmol/L (3.5-4.5)
[2023-12-29] MEDS: CLINDAMYCIN 900 MG/50 ML 900 MG/50 ML BAG IV ONE (13:36)
[2023-12-29 14:33] VITALS: BP 125/87; O2SAT 97
[2023-12-29] MEDS: iohexoL-300 100 ML VIAL IVP ONE (14:40)
--- NOTE | 2023-12-29 14:51 | CT Report ---
PROCEDURE: Maxillofacial W INDICATIONS: W IV contrast, facial infection CONTRAST: 100ml [id number] TECHNIQUE: After the administration of intravenous contrast, 3.0 mm axial sections acquired from the mid-neck to the frontal sinuses, with coronal reformatting. For radiation dose reduction, the following was use d: automated exposure control, adjustment of mA and/or kV according to patient size. COMPARISON: Correlation is made with head CT, 08/14/2020. FINDINGS: Image quality: Excellent. Soft tissues: There is left periorbital soft tissue swelling left cheek soft tissue swelling seen. No soft tissue gas is seen. No radiopaque foreign bodies are seen. No focal fluid collection is seen t o suggest abscess. Vascular: Visualized vascular structures appear patent throughout. Bony vascular foramina and canal s appear normal. Bones: Facial bones appear intact, without fractures, erosions, or destruction. Visualized portions of the skull base and auditory canals also appear normal. Poor dentition is noted. Sinuses: There is moderate mucosal thickening within maxillary sinus, with air-fluid level within the left maxillary sinus. Milder mucosal thickening can be seen elsewhere within the paranasal sinuses. No significant abnormal fluid can be seen within the mastoid air cells. IMPRESSION: Left periorbital/left cheek soft tissue swelling seen, without a drainable abscess. Reviewed by: Austyn Vázquez MD on 12/29/2023 1:50 PM [facility] Approved by: Austyn Vázquez MD on 12/29/2023 1:50 PM [facility]EN[facility] Station ID: [id number]
== END 2023-12-29 15:14 | disposition home or self-care (01) ==
LOC: ED 11:40
DX: L03.211 Cellulitis of face (principal); K02.9 Dental caries, unspecified; F17.200 Nicotine dependence, unspecified, uncomplicated
CPT/HCPCS: 36415; 70487; 80048; 85025; 96365; 96375; 96376; 99284; J1170; Q9967